=== PATIENT | female | born 1960 | race Caucasian/White ===

== ENCOUNTER 2017-09-21 12:26 | Emergency (ER) | payer OTHER ==
[~2017-09-21] VITALS: Ht 167.6 cm; Wt 61.2 kg
--- OUTSIDE RECORDS SUMMARY | ~2017-09-21 | XMS | Clinical Summary ---
Demographics + + + | Address | [address] | | | [place] [address] | + + + | Home Phone | | + + + | Preferred Language | Unknown | + + + | Marital Status | Single | + + + | Lutheran Affiliation | Unknown | + + + | Race | Unknown | + + + | Ethnic Group | Other Race | + + + Author + + + | Author | [facility] | + + + | Organization | [facility] | + + + | Address | Unknown | + + + | Phone | Unavailable | + + + Care Team Providers + +------+ + | Care Automobile Dealer Name | Role | Phone | + +------+ + PP | Unavailable | + +------+ + Source Comments CHANDLER is fully live on both [facility] and [facility] Allergies Not on File Current Medications Not [...] | | | | (FLU SHOT) | 7 | | | + + + + + Results Not on filefrom Last 3 Months"
[2017-09-21] MEDS ORDERED: PERCOCET 5-3251 EACH PO (13:32)
== END 2017-09-21 13:54 | disposition home or self-care (01) ==
LOC: ED 12:26
DX: S22.42XA Multiple fractures of ribs, left side, initial encounter for closed fracture (principal); W20.8XXA Other cause of strike by thrown, projected or falling object, initial encounter
CPT/HCPCS: 71101; 99283

== ENCOUNTER 2018-02-09 11:13 | Emergency (ER) | payer OTHER ==
[~2018-02-09] VITALS: Ht 167.6 cm; Wt 61.2 kg
--- OUTSIDE RECORDS SUMMARY | ~2018-02-09 | XMS | Encounter Summary ---
Demographics + + + | Address | [address] | | | [place] [address] | + + + | Home Phone | | + + + | Preferred Language | Unknown | + + + | Marital Status | | + + + | Sikhism Affiliation | 1041 | + + + | Race | Unknown | + + + | Ethnic Group | Unknown | + + + Author + + + | Author | [facility] | | | and [place] | + + + | Organization | [facility] | | | and [place] | + + + | Address | Unknown | + + + | Phone | Unavailable | + + + Support + + +---------+ + | Name | Relationship | Address | Phone | + + +---------+ + | Darrion Gale | ECON | Unknown | | + + +---------+ + Care Team Providers + +------+ + | Care Biomedical Specialist Name | Role | Phone | + +------+ + | Greg Chandler MD | PCP | | + +------+ + Encounter Details +--------+ + + + + | Date | Type | Department | Care Team | Description | +--------+ + + + + | 11/21/ | Hospital | [facility] | Ayad Coleman, | Right knee pain, | | 2018 | Encounter | HOSPITAL | [address], | unspecified | | | | ORTHOPAEDICS XRAY | [place] | chronicity | | | | [address] | [address] | | | | | [place] | [phone] | | | | | [address] | | | | | | [phone] | | | +--------+ + + + + Social History + +-------+ +--------+------+ | Tobacco Use | Types | Packs/Day | Years | Date | | | | | Used | | + +-------+ +--------+------+ | Never Smoker | | | | | + +-------+ +--------+------+ + +---+---+---+ | Smokeless Tobacco: | | | | | Never Used | | | | + +---+---+---+ + + + | Sex Assigned at | Date Recorded | | | | + + + | Not on file | | + + + as of this encounter Medications at Time of Discharge + + +-------+---------+ + + | Medication | Sig. | Disp. | Refills | Start | End Date | | | | | | Date | | + + +-------+---------+ + + | adult multivitamin | Take by mouth. | | | 10/28/19 | | | liquid | | | | 13 | | + + +-------+---------+ + + | Calcium | Take by mouth. | | | 10/28/19 | | | Carb-Cholecalciferol | | | | 13 | | | (CALCIUM 1000 + D | | | | | | | PO) | | | | | | + + +-------+---------+ + + | cholecalciferol | Take by mouth. | | | 10/28/19 | | | (VITAMIN D-3) 1,000 | | | | 13 | | | units tablet | | | | | | + + +-------+---------+ + + | ibuprofen (ADVIL) | Take 200 mg by mouth | | | 01/13/20 | | | 200 mg tablet | as needed. | | | 16 | | + + +-------+---------+ + + | Misc Natural | Take by mouth. | | | 10/28/19 | | | Products ([facility] | | | | 13 | | | OPCBKQ-NKZUHUQOM-JIN | | | | | | | DS PO) | | | | | | + + +-------+---------+ + + as of this encounter Plan of Treatment +--------+ + + + + | Date | Type | Specialty | Care Team | Description | +--------+ + + + + | 03/04/ | Office | Orthopedic Surgery | Yoan Morgan | | | 2017 | Visit | | BINTA Espino [address] | | | | | | [place], | | | | | | [place] [address] | | | | | | [phone] | | | | | | | | +--------+ + + + + | 03/26/ | Surgery | | Collin Guillen, | ARTHROSCOPY KNEE | | 2017 | | | DO [address], | with Partial Lateral | | | | | [place], [place] | Meniscectomy | | | | | [address] | | | | | | [phone] | | | | | | | | +--------+ + + + + | 03/26/ | Procedure | | | | | 2017 | Pass | | | | +--------+ + + + + | 03/26/ | Hospital | | Collin Guillen, | | | 2017 | Encounter | | DO [address], | | | | | | [place] | | | | | | [address] | | | | | | [phone] | | | | | | | | +--------+ + + + + as of this encounter Results XR Knee Left 4 + Vw (11/21/2017 1444) + + | Impressions | + + | IMPRESSION: 1. No acute finding. 2. 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 Dictated by: Darrion Sapp Electronically Signed by: Darrion Sapp on | | 11/21/2017 3:44 PM | + + + + | Narrative | + + | EXAMINATION: XR KNEE RIGHT 4 + VW; XR KNEE LEFT 4 + VW HISTORY: knee pain | | COMPARISON STUDY: MRI left knee 10/21/2015 FINDINGS: Right knee: Lateral knee | | joint narrowing is present with associated hypertrophic bone formation and | | sclerosis. Mild medial knee narrowing. Left knee: Lateral knee joint narrowing with | | mild hypertrophic bone formation. Mild hypertrophic bone formation narrowing at the | | medial knee. No acute bone finding identified. . | + + + + | Procedure Note | + + | Leander, Rad Results In - 11/21/2017 1548 PST EXAMINATION:XR KNEE RIGHT 4 + VW; XR KNEE | | LEFT 4 + VWHISTORY:knee painCOMPARISON STUDY:MRI left knee 10/21/2015FINDINGS:Right | | knee: Lateral knee joint narrowing is present with associated hypertrophic bone | | formation and sclerosis. Mild medial knee narrowing.Left knee: Lateral knee joint | | narrowing with mild hypertrophic bone formation. Mild hypertrophic bone formation | | narrowing at the medial knee.No acute bone finding identified. .IMPRESSION: | | IMPRESSION:1. No acute finding.2. Osteoarthritis lateral greater than medial knee | | bilateral.Dictated by: Darrion SappElectronically Signed by: Darrion Sapp on | | 11/21/2017 3:44 PM | |FINDINGS: | |Right knee: Lateral knee joint narrowing is present with associated hypertrophic bone forma tion and sclerosis. Mild medial knee narrowing. | |Left knee: Lateral knee joint narrowing with mild hypertrophic bone formation. Mild hypert rophic bone formation narrowing at the medial knee. | | | |No acute bone finding identified. . | | | |IMPRESSION: | |IMPRESSION: | |1. No acute finding. | |2. 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 | | | |Dictated by: Darrion Sapp | | | | | + + XR Knee Right 4 + Vw (11/21/2017 1444) + + | Impressions | + + | IMPRESSION: 1. No acute finding. 2. 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 Dictated by: Darrion Sapp Electronically Signed by: Darrion Sapp on | | 11/21/2017 3:44 PM | + + + + | Narrative | + + | EXAMINATION: XR KNEE RIGHT 4 + VW; XR KNEE LEFT 4 + VW HISTORY: knee pain | | COMPARISON STUDY: MRI left knee 10/21/2015 FINDINGS: Right knee: Lateral knee | | joint narrowing is present with associated hypertrophic bone formation and | | sclerosis. Mild medial knee narrowing. Left knee: Lateral knee joint narrowing with | | mild hypertrophic bone formation. Mild hypertrophic bone formation narrowing at the | | medial knee. No acute bone finding identified. . | + + + + | Procedure Note | + + | Leander, Rad Results In - 11/21/2017 1548 PST EXAMINATION:XR KNEE RIGHT 4 + VW; XR KNEE | | LEFT 4 + VWHISTORY:knee painCOMPARISON STUDY:MRI left knee 10/21/2015FINDINGS:Right | | knee: Lateral knee joint narrowing is present with associated hypertrophic bone | | formation and sclerosis. Mild medial knee narrowing.Left knee: Lateral knee joint | | narrowing with mild hypertrophic bone formation. Mild hypertrophic bone formation | | narrowing at the medial knee.No acute bone finding identified. .IMPRESSION: | | IMPRESSION:1. No acute finding.2. Osteoarthritis lateral greater than medial knee | | bilateral.Dictated by: Darrion SappElectronically Signed by: Darrion Sapp on | | 11/21/2017 3:44 PM | |FINDINGS: | |Right knee: Lateral knee joint narrowing is present with associated hypertrophic bone forma tion and sclerosis. Mild medial knee narrowing. | |Left knee: Lateral knee joint narrowing with mild hypertrophic bone formation. Mild hypert rophic bone formation narrowing at the medial knee. | | | |No acute bone finding identified. . | | | |IMPRESSION: | |IMPRESSION: | |1. No acute finding. | |2. 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 | | | |Dictated by: Darrion Sapp | | | | | + + in this encounter Visit Diagnoses + + | Diagnosis | + + | Right knee pain, unspecified chronicity | + +"
--- OUTSIDE RECORDS SUMMARY | ~2018-02-09 | XMS | Encounter Summary ---
Demographics + + + | Address | [address] | | | [place] [address] | + + + | Home Phone | | + + + | Preferred Language | Unknown | + + + | Marital Status | | + + + | Taoist Affiliation | 1041 | + + + | Race | Unknown | + + + | Ethnic Group | Unknown | + + + Author + + + | Author | [facility] | | | and [place] | + + + | Organization | [facility] | | | and [place] | [...] Team Providers + +------+ + | Care Identity Management Developer Name | Role | Phone | + +------+ + PCP | Unavailable | + +------+ + Encounter Details +--------+ + + + + | Date | Type | Department | Care Team | Description | +--------+ + + + + | 03/26/ | Procedure | [facility] | | | | 2018 | Pass | HOSPITAL [facility] | | | | | | [address] | | | | | | [place] | | | | | | [address] | | | | | | [phone] | | | +--------+ + + + [...] | | | + +---+---+---+ + + +---------+ + | Alcohol Use | Drinks/We | oz/Week | Comments | | | ek | | | + + +---------+ + | No | | | | + + +---------+ + + + + | Sex Assigned at | Date Recorded | | | | + + + | Not on file | | + + + as of this encounter Plan of Treatment +--------+ + + + + | Date | Type | Specialty | Care Team | Description | +--------+ + + + + | 03/04/ | Office | Orthopedic Surgery | Yoan Morgan | | | 2017 | Visit | | [address] | | | | | | [place], | | | | | | [place] [address] | | | | | | [phone] | | | | | | | | +--------+ + + + + | 03/26/ | Surgery | | Collin Guillen, | ARTHROSCOPY KNEE | | 2017 | | | DO [address], | with Partial Lateral | | | | | [place], [place] | Meniscectomy | | | | | [address] | | | | | | [phone] | | | | | | | [...] [place] | | | | | | [address] | | | | | | [phone] | | | | | | | | +--------+ + + + + as of this encounter Visit Diagnoses Not on filein this encounter"
--- OUTSIDE RECORDS SUMMARY | ~2018-02-09 | XMS | Encounter Summary ---
Demographics + + + | Address | [address] | | | [place] [address] | + + + | Home Phone | | + + + | Preferred Language | Unknown | + + + | Marital Status | | + + + | Samaritan Affiliation | 1041 | + + + | Race | Unknown | + + + | Ethnic Group | Unknown | + + + Author + + + | Author | [facility] | | | and [place] | + + + | Organization | [facility] | | | and [place] | [...] Team Providers + +------+ + | Care Oven Press Tender Name | Role | Phone | + +------+ + | Greg Chandler MD | PCP | | + +------+ + Reason for Visit + + + | Reason | Comments | + + + | Appointment | | + + + Encounter Details +--------+ + + + + | Date | Type | Department | Care Team | Description | +--------+ + + + + | 03/16/ | Telephone | [facility] | Anatoly Bravo, SCAR | Appointment | | 2018 | | HOSPITAL [facility] | [address] [place] | | | | | [address] [place] | [place], [place] | | | | | [place], [place] | [address] | | | | | [address] | [phone] | | | | | [phone] | | | +--------+ + + + [...] | Visit | | BINTA Espino [address] | | | | | | [place], | | | | | | [place] [address] | | | | | | [phone] | | | | | | | | +--------+ + + + + | 03/26/ | Surgery | | Collin Guillen, | ARTHROSCOPY KNEE | | 2017 | | | DO [address], | with Partial Lateral | | | | | [place], [place] | Meniscectomy | | | | | [address] | | | | | | [phone] | | | | | | | | +--------+ + + + + | 03/26/ | Procedure | | | | | 2017 | Pass | | | | +--------+ + + + + | 03/26/ | Hospital | | Collin Guillen, | | | 2017 | Encounter | | DO [address], | | | | | | [place], [place] | | | | | | [address] | | | | | | [phone] | | | | | | | | +--------+ + + + + as of this encounter Visit Diagnoses Not on filein this encounter"
--- OUTSIDE RECORDS SUMMARY | ~2018-02-09 | XMS | Encounter Summary ---
Demographics + + + | Address | [address] | | | [place] [address] | + + + | Home Phone | | + + + | Preferred Language | Unknown | + + + | Marital Status | | + + + | Mormonism Affiliation | 1041 | + + + | Race | Unknown | + + + | Ethnic Group | Unknown | + + + Author + + + | Author | [facility] | | | and [place] | + + + | Organization | [facility] | | | and [place]ana [...] Team Providers + +------+ + | Care City Manager Name | Role | Phone | [...] [place] | | | | | | [address] | | | | | | [phone] | | | +--------+ + + + [...] | | | | | | [place] [address] | | | | | | [phone] | | | | | | | | +--------+ + + + + | 03/26/ | Surgery | | Collin Guillen, | ARTHROSCOPY KNEE | | 2017 | | | DO [address], | with Partial Lateral | | | | | [place], [place] | Meniscectomy | | | | | [address] | | | | | | [phone] | | | | | | | [...] [place] | | | | | | [address] | | | | | | [phone] | | | | | | | | +--------+ + + + + as of this encounter Visit Diagnoses Not on filein this encounter"
--- OUTSIDE RECORDS SUMMARY | ~2018-02-09 | XMS | Encounter Summary ---
Demographics + + + | Address | [address] | | | [place] [address] | + + + | Home Phone | | + + + | Preferred Language | Unknown | + + + | Marital Status | | + + + | Restorationism Affiliation | 1041 | + + + | Race | Unknown | + + + | Ethnic Group | Unknown | + + + Author + + + | Author | [facility] | | | and [place]ana | + + + | Organization | [facility] | | | and [place]ana | [...] Team Providers + +------+ + | Care Brim Pouncing Machine Operator Name | Role | Phone | + +------+ + | Greg Chandler MD | PCP | | + +------+ + Reason for Visit + + + | Reason | Comments | + + + | Follow-up | R knee MRI | + + + Encounter Details +--------+---------+ + + + | Date | Type | Department | Care Team | Description | +--------+---------+ + + + | 12/31/ | Office | [facility] | [facility] | Degenerative tear of | | 2018 | Visit | [facility] | UMANG Espino [address] | posterior horn of | | | | [address] | [place], | lateral meniscus of | | | | [place], [place] | [place] [address] | right knee (Primary | | | | [address] | [phone] | Dx); Primary | | | | [phone] | | osteoarthritis of | | | | | | right knee | +--------+---------+ + + + Social History [...] + + + as of this encounter Last Filed Vital Signs + + + + | Vital Sign | Reading | Time Taken | + + + + | Blood Pressure | 122/68 | 12/31/2017 1600 PDT | + + + + | Pulse | 67 | 12/31/20171599 PDT | + + + + | Temperature | - | - | + + + + | Respiratory Rate | 16 | 12/31/20171599 PDT | + + + + | Oxygen Saturation | 99% | 12/31/20171599 PDT | + + + + | Inhaled Oxygen | - | - | | Concentration | | | + + + + | Weight | 61.2 kg (135 lb) | 12/31/20171599 PDT | + + + + | Height | 167.6 cm (5' 6") | 12/31/2017 1600 PDT | + + + + | Body Mass Index | 21.79 | 12/31/2017 1600 PDT | + + + + in this encounter Instructions Patient Instructions - Yoan Morgan PA - 12/31/2017 1643 PDTFormatting of this note may be different from the original. Understanding Meniscal Tears The meniscus is a tough cushion of fibrous tissue called cartilage in the knee joint. It cu shions the knee. It absorbs shock and helps spread weight across the knee joint. It also wor ks with other parts of the knee to help keep the joint stable. Injury or aging can cause the meniscus to tear and lead to pain and problems using the knee. What causes meniscal tears? A sudden injury can tear the meniscus. This is often because of planting the foot and twist ing the knee. Sports such as soccer, football, and basketball are often involved. Repeated a ctions, such as squatting, may also lead to a tear. Breakdown of the meniscus because of jennifer ng can also lead to tears. Symptoms of meniscal tears These can include: Knee pain Knee swelling Catching of the knee or inability to straighten the knee Unstable feeling in the knee Treatment for meniscal tears A tear is unlikely to heal on its own. You often will need surgery to repair a tear. In man y cases, your healthcare provider will first try treatments to help relieve symptoms. These may include: Rest the knee. This means avoiding any activity that puts stress on the knee joint. Thes e include kneeling, squatting, jogging, and climbing stairs. In some cases, you may need to use crutches for a time to keep body weight off of the knee joint. Cold pack. Putting a cold pack on the knee helps reduce pain and swelling. Knee brace. Bracing the knee helps support it. Medicine. Prescription and uuvf-egy-zcieyqf pain medicines can help relieve swelling and pain. Exercises. Exercises help strengthen the muscles of the leg to help support the knee adelaide nt. If these treatments don t help relieve symptoms or the injury is severe, you may need brittny hernando. This can repair the meniscus to relieve symptoms and restore movement. When to call your healthcare provider Call your healthcare provider right away if you have any of these: Fever of 100.4F (38C) or higher, or as directed Pain or swelling that gets worse, including pain in the calf Numbness or tingling in leg or foot You suddenly can t put any weight on your leg Your knee locks Date Last Reviewed: 12/22/201519997856-3832 [employer]. [address] [place] [address]. All righ ts reserved. This information is not intended as a substitute for professional medical care. Always follow your healthcare professional's instructions. Treating Meniscus Problems The type of surgery you have depends on the nature of your tear. its size and location. You r surgeon may use arthroscopy, a method that involves putting a tiny camera inside your knee , so that your doctor can clearly see your joint. Arthroscopy requires only small incisions (cuts), and you can usually go home the same day as surgery. During surgery, you may have lo fritz anesthesia (your doctor numbs your knee with medicine), a regional block (numbing your b navi from the waist down), or general anesthesia (your doctor gives you drugs to putyou int o a deep sleep so you do't feel pain.) Pre-op checklist Don't eat or drink 10 hours before surgery. Arrange for someone to drive you home after surgery. Tell your doctor if you take any medicine, supplements, or herbal remedies. Repair For certain tears, your surgeon will try to repair the meniscus. He or she will sew torn ed ges so they can heal properly. Or your surgeon will use special fasteners to repair damage. In some cases, repairs may require another incision at the back or side of your knee. Removal In most cases, your surgeon will remove the damaged part of your meniscus. The meniscus won 't completely grow back, so your doctor willremove as little tissue as possible. Other tis dee dee, calledthe articular cartilage, will take over the role as shock absorber for your kne e joint. After surgery You'll spend some time in the recovery area and can go home when you've recovered from the anesthesia. Your knee will be bandaged, and you may have stitches, steri-strips, or sherin. You may need crutches to keep weight off the knee and may have a splint for support. Date Last Reviewed: 06/17/201519994440-6083 [employer]. [address] [place] [address], [place] [address]. All [facility] ts reserved. This information is not intended as a substitute for professional medical care. Always follow your healthcare professional's instructions. in this encounter Progress Notes Yoan Morgan PA - 12/31/2017 1530 PDTFormatting of this note may be different from the original. Date of Service: 12/31/2017 Provider: Yoan Morgan Pt. Name/Age/: Alecia Gale 57 y.o. 1960 Date of Evalutaion: 12/31/2017 Chief Complaint Patient presents with Follow-up R knee MRI Orthopedic Clinic Visit Chief complaint: right knee locking and popping MRI follow up. HISTORY OF PRESENT ILLNESS Alecia Gale is a 57 y.o. female presents for right knee locking and popping MRI follow up. Alecia reports symptoms began about 5+ months ago. She does not recall a specific inciting ev ent. She reports pain and locking in the lateral knee, occurring most frequently while the k nee is flexed, especially when horseback. She will have to manipulate the knee with her hand and rotate the tibia to get the knee moving again. The locking has become more frequent and now occurs multiple times throughout each day. She denies instability or swelling. She's h ad similar symptoms in the contralateral knee that was treated successfully with partial men iscectomy. She saw Dr. Coleman in our clinic in October 2017, and he ordered MRI for further e valuation. She presents today for results and treatment plan. Today she reports pain in the right knee is 0/10 at baseline, but will increase to 4-5/10 w hen locking and trying to get moving again. PAST MEDICAL HISTORY History reviewed. No pertinent past medical history. PAST SURGICAL HISTORY Past Surgical History: Procedure Laterality Date HAND SURGERY Right KNEE ARTHROSCOPY Left 2016 KNEE ARTHROSCOPY Left 2013 bone spurs skin grafts Left MEDICATIONS Current Outpatient Prescriptions Medication Sig Dispense Refill adult multivitamin liquid Take by mouth. Calcium Carb-Cholecalciferol (CALCIUM 1000 + D PO) Take by mouth. cholecalciferol (VITAMIN D-3) 1,000 units tablet Take by mouth. ibuprofen (ADVIL) 200 mg tablet Take 200 mg by mouth as needed. Misc Natural Products ([employer] MAOXJY-GDYFIDIIA-QOF DS PO) Take by mouth. No current facility-administered medications for this visit. ALLERGIES No Known Allergies SOCIAL HISTORY Social History Social History Marital status: Spouse name: N/A Number of children: N/A Years of education: N/A Occupational History Not on file. Social History Main Topics Smoking status: Never Smoker Smokeless tobacco: Never Used Alcohol use No Drug use: No Sexual activity: Not on file Other Topics Concern Not on file Social History Narrative No narrative on file FAMILY HISTORY Family History Problem Relation Age of Onset Macular degen Mother Stroke Father Ulcerative colitis Brother Review of systems: Patient denies any nausea vomiting fevers chills chest pain shortness o f breath difficulty breathing constipation diarrhea blood in the stool blood in the urine. Physical exam: BP 122/68 | Pulse 67 | Resp 16 | Ht 1.676 m (5' 6") | Wt 61.2 kg (135 lb) | SpO2 99% | ? No | BMI 21.79 kg/m BMI: Body mass index is 21.79 kg/m. General: Patient is of normal development. Groomed and in a good nutritional state. Aler t and oriented x3. HEENT: Head is normocephalic atraumatic no scleral icterus or cervical adenopathy is appre ciated on exam Respiratory: Chest rise is symmetric. No conversational dyspnea or audible wheezing is ramesh reciated on exam. Respiratory rate is normal. Musculoskeletal: Right knee: No effusion. Mild TTP about the anterolateral joint line. Crep itus on motion noted. Range of motion 0 to 130 degrees. No medial/lateral laxity appreciated . ACL and PCL appreciated as stable. Positive Bk for pain. Distal motor and sensory fu nction intact B/L. B/L pedal pulses 1+. Imaging: MRI of the right knee from 12/19/17 was reviewed by me and discussed with Dr. Guillen. Findings consistent with complex tear of posterior horn of lateral meniscus. Findings of lateral com partment arthritis. All pertinent imaging results were discussed with patient on today's vis it. Laboratory: No results found for this or any previous visit. Assessment 1. Right knee lateral meniscus tear. 2. Right knee early osteoarthritis of lateral compartment Plan: Dr. Guillen and I discussed in detail with Alecia the findings on MRI and treatment options. We discussed that surgical treatment with a right knee arthroscopic surgery with partial later al menisectomy can address the mechanical symptoms she is having, and may improve some of th e pain she is having. However, she may continue to have OA related pain. We also discussed t hat although her OA causes little pain at this time, the progression of signs and symptoms i s unpredictable and could progress rapidly, or not progress for many years. She voiced under standing of this. We discussed the risks, benefits, and alternatives to surgical treatment with a diagnostic and operative arthroscopy with partial lateral menisectomy. We also discussed the typical pe rioperative course. Alecia was provided time to ask questions and have them answered to her sa tisfaction. She wishes to proceed with surgical treatment. Risks benefits and alternatives of surgical intervention were discussed with the patient. R isks included but not limited to heart attack stroke loss of life or limb nerve injury vesse l injury infection stiffness or return to the operating room for subsequent surgical interve ntion was discussed. Postoperative rehabilitation was discussed as well with the patient. Umang colon demonstrates understanding of the risks and wishes to proceed with surgical interventi on. During this visit I was under direct supervision of Dr. Collin Guillen and he had a face-to -face encounter with this patient. More than 30 minutes were spent face to face with the patient during this visit. More than 50% of the visit was spent providing education and/or counseling to the patient and their fa tiesha (if present) regarding the issues documented in this note. Electronically signed by: Yoan Morgan PA-C 12/31/2017 19:09 CC: Greg Chandler MD No ref. provider found Note: Part of this report was transcribed using voice recognition software. Every effort wa s made to ensure accuracy. However, inadvertent computerized plodding machine operator errors may be pre sent. Associated attestation - Collin Guillen, DO - 01/01/20181956 PDTIn my face to face enco unter with this patient a history and physical examination was performed and direction danielle lopez management was provided for Charles JUDD. I reviewed his note and agree with the do cumented findings and plan of care. in this encounter Plan of Treatment +--------+ + + + + | Date | Type | Specialty | Care Team | Description | +--------+ + + + + | 03/04/ | Office | Orthopedic Surgery | Yoan Morgan | | | 2017 | Visit | | UM[place] Espino [address] | | | | | | [place], | | | | | | [place] [address] | | | | | | [phone] | | | | | | | | +--------+ + + + + | 03/26/ | Surgery | | Collin Guillen, | ARTHROSCOPY KNEE | | 2017 | | | [address], | with Partial Lateral | | | | | [place], [place] | Meniscectomy | | | | | [address] | | | | | | [phone] | | | | | | | | +--------+ + + + + | 03/26/ | Procedure | | | | | 2017 | Pass | | | | +--------+ + + + + | 03/26/ | Hospital | | Collin Guillen, | | | 2018 | Encounter | | DO [address], | | | | | | [place] | | | | | | [address] | | | | | | [phone] | | | | | | | | +--------+ + + + + as of this encounter Visit Diagnoses + + | Diagnosis | + + | Degenerative tear of posterior horn of lateral meniscus of right knee - Primary | + + | Primary osteoarthritis of right knee | + + | Primary localized osteoarthrosis, lower leg | + +
--- OUTSIDE RECORDS SUMMARY | ~2018-02-09 | XMS | Encounter Summary ---
Demographics + + + | Address | [address] | | | [place] [address] | + + + | Home Phone | | + + + | Preferred Language | Unknown | + + + | Marital Status | | + + + | Mosque Affiliation | 1041 | + + + | Race | Unknown | + + + | Ethnic Group | Unknown | + + + Author + + + | Author | [facility] | | | and [place] | + + + | Organization | [facility] | | | and [place]ana [...] Team Providers + +------+ + | Care Form Tamper Operator Name | Role | Phone | + +------+ + | Greg Chandler MD | PCP | | + +------+ + Encounter Details +--------+ + + + + | Date | Type | Department | Care Team | Description | +--------+ + + + + | 12/25/ | Abstract | [facility] | Jose Daniel Matthews, | Bucket-handle tear | | 2018 | | [facility] | [address] | of lateral meniscus | | | | [address] | [place] | of left knee as | | | | [place] | [address] | current injury, | | | | [address] | | subsequent encounter | | | | [phone] | | | +--------+ + + + [...] + + + as of this encounter Progress Notes Jose Daniel Matthews MD - 12/25/2017 1503 PDTThis patient was seen by Dr. Coleman with advanced right knee OA and mechanical symptoms that led to ordering an MRI. The MRI was done 12/19/17 in [place] ([facility]) and the report was faxed to Dr. Coleman who is no longer in practice at [facility]. MRI suggests lateral compartment degeneration with the possibility of a displaced lateral m eniscus tear. I will forward this to Dr. Guillen to review, for potential indication for arthroscopic later al meniscal debridement if clinically relevant. Per Dr. Coleman' note last month, the patient was having overt locking episodes that may be related to this MRI finding. Will not proactively contact patient until reviewed by Dr. Guillen for potential surgical ind ications. Jose Daniel Matthews 12/25/2017 in this encounter Plan of Treatment +--------+ [...] | | | | | | [place] [address] | | | | | | [phone] | | | | | | | | +--------+ + + + + | 03/26/ | Surgery | | Collin Guillen, | ARTHROSCOPY KNEE | | 2018 | | | DO [address] , | with Partial Lateral | | | | | [place], [place] | Meniscectomy | | | | | [address] | | | | | | [phone] | | | | | | | | +--------+ + + + + | 03/26/ | Procedure | | | | | 2017 | Pass | | | | +--------+ + + + + | 03/26/ | Hospital | | Collin Guillen, | | | 2018 | Encounter | | DO [address], | | | | | | [place], [place] | | | | | | [address] | | | | | | [phone] | | | | | | | | +--------+ + + + + as of this encounter Visit Diagnoses + + | Diagnosis | + + | Bucket-handle tear of lateral meniscus of left knee as current injury, subsequent | | encounter | + +"
--- OUTSIDE RECORDS SUMMARY | ~2018-02-09 | XMS | Clinical Summary ---
Demographics + + + | Address | [address] | | | [place] [address] | + + + | Home Phone | | + + + | Preferred Language | Unknown | + + + | Marital Status | Single | + + + | Cheondoism Affiliation | Unknown | + + + | Race | Unknown | + + + | Ethnic Group | Other Race | + + + Author + + + | Author | [facility] | + + + | Organization | [facility] | + + + | Address | Unknown | + + + | Phone | Unavailable | + + + Care Team Providers + +------+ + | Care Wood Grainer Name | Role | Phone | + +------+ + PP | Unavailable | + +------+ + Source Comments CHANDLER is fully live on both [facility] and [facility] Allergies Not on File Current Medications Not on file Active Problems Not [...] on file | | + + + Plan of Treatment + + + + + | Health Maintenance | Due Date | Last Done | Comments | + + + + + | INFLUENZA VACCINE | | | | | (FLU SHOT) | 8 | | | + + + + + Results Not on filefrom Last 3 Months"
--- OUTSIDE RECORDS SUMMARY | ~2018-02-09 | XMS | Encounter Summary ---
Demographics + + + | Address | [address] | | | [place] [address] | + + + | Home Phone | | + + + | Preferred Language | Unknown | + + + | Marital Status | | + + + | Yarsanism Affiliation | 1041 | + + + | Race | Unknown | + + + | Ethnic Group | Unknown | + + + Author + + + | Author | [facility] | | | and [place] | + + + | Organization | [facility] | | | and [place]ana [...] Team Providers + +------+ + | Care Metal Loader Name | Role | Phone | + [...] | | | | [place] | [address] | current injury, | | | | [address] | | subsequent encounter | | | | [phone] | | | +--------+ + + + [...] MRI. The MRI was done 12/19/17 in [place] ([facility]) and the report was faxed to Dr. Coleman who is no longer in practice at [facility]. MRI suggests lateral compartment degeneration with [...] | | | | | | [place] [address] | | | | | | [phone] | | | | | | | | +--------+ + + + + | 03/26/ | Surgery | | Collin Guillen, | ARTHROSCOPY KNEE | | 2018 | | | DO [address] , | with Partial Lateral | | | | | [place], [place] | Meniscectomy | | | | | [address] | | | | | | [phone] | | | | | | | [...] [place] | | | | | | [address] | | | | | | [phone] | | | | | | | | +--------+ + + + + as of this encounter Visit Diagnoses + + | Diagnosis | + + | Bucket-handle tear of lateral meniscus of left knee as current injury, subsequent | | encounter | + +"
--- OUTSIDE RECORDS SUMMARY | ~2018-02-09 | XMS | Encounter Summary ---
Demographics + + + | Address | [address] | | | [place] [address] | + + + | Home Phone | | + + + | Preferred Language | Unknown | + + + | Marital Status | | + + + | Catholic Affiliation | 1041 | + + + | Race | Unknown | + + + | Ethnic Group | Unknown | + + + Author + + + | Author | [facility] | | | and [place] | + + + | Organization | [facility] | | | and [place] [...] Team Providers + +------+ + | Care Child Care Giver Name | Role | Phone | + +------+ + | Greg Chandler MD | PCP | | + +------+ + Reason for Visit +--------+ + | Reason | Comments | +--------+ + | Other | MRI Order | +--------+ + Encounter Details +--------+ + + + + | Date | Type | Department | Care Team | Description | +--------+ + + + + | 02/09/ | Telephone | [facility] | Ayad Coleman, | Other (MRI Order) | | 2018 | | [facility] | [address], | | | | | [address] | [place], [place] | | | | | [place], [place] | [address] | | | | | [address] | [phone] | | | | | [phone] | | | +--------+ + + + [...] | | | | | | [place] [address] | | | | | | [phone] | | | | | | | | +--------+ + + + + | 03/26/ | Surgery | | Collin Guillen, | ARTHROSCOPY KNEE | | 2018 | | | DO [address], | with Partial Lateral | | | | | [place], [place] | Meniscectomy | | | | | [address] | | | | | | [phone] | | | | | | | | +--------+ + + + + | 03/26/ | Procedure | | | | | 2017 | Pass | | | | +--------+ + + + + | 03/26/ | Hospital | | Collin Guillen, | | | 2017 | Encounter | | DO [address], | | | | | | [place], [place] | | | | | | [address] | | | | | | [phone] | | | | | | | | +--------+ + + + + as of this encounter Visit Diagnoses Not on filein this encounter"
--- OUTSIDE RECORDS SUMMARY | ~2018-02-09 | XMS | Encounter Summary ---
Demographics + + + | Address | [address] | | | [place] [address] | + + + | Home Phone | | + + + | Preferred Language | Unknown | + + + | Marital Status | | + + + | Congregation Affiliation | 1041 | + + + | Race | Unknown | + + + | Ethnic Group | Unknown | + + + Author + + + | Author | [facility] | | | and [place] | + + + | Organization | [facility] | | | and [place] [...] Team Providers + +------+ + | Care Drug Clerk Name | Role | Phone | + [...] | | | [place], [place] | [address] | | | | | [address] | [phone] | | | | | [phone] | | | +--------+ + + + [...] | | | | | | [place] [address] | | | | | | [phone] | | | | | | | | +--------+ + + + + | 03/26/ | Surgery | | Collin Guillen, | ARTHROSCOPY KNEE | | 2017 | | | DO [address], | with Partial Lateral | | | | | [place], [place] | Meniscectomy | | | | | [address] | | | | | | [phone] | | | | | | | [...] [place] | | | | | | [address] | | | | | | [phone] | | | | | | | | +--------+ + + + + as of this encounter Visit Diagnoses Not on filein this encounter"
--- OUTSIDE RECORDS SUMMARY | ~2018-02-09 | XMS | Encounter Summary ---
Demographics + + + | Address | [address] | | | [place] [address] | + + + | Home Phone | | + + + | Preferred Language | Unknown | + + + | Marital Status | | + + + | Zoroastrian Affiliation | 1041 | + + + | Race | Unknown | + + + | Ethnic Group | Unknown | + + + Author + + + | Author | [facility] | | | and Davidana | + + + | Organization | [facility] | | | and Davidana [...] Team Providers + +------+ + | Care Qa Automation Architect Name | Role | Phone | + +------+ + PCP | Unavailable | + +------+ + Encounter Details +--------+ + + + + | Date | Type | Department | Care Team | Description | +--------+ + + + + | 03/26/ | Hospital | [facility] | Collin Guillen, | | | 2018 | Encounter | HOSPITAL OR INTRA OP | DO [address] , | | | | | [address] | [place], [place] | | | | | [place], [place] | [address] | | | | | [address] | [phone] | | | | | [phone] | | | +--------+ + + + [...] Surgery | Yoan Morgan | | | 2018 | Visit | | BINTA Espino [address] | | | | | | [place], | | | | | | [place] [address] | | | | | | [phone] | | | | | | | | +--------+ + + + + | 03/26/ | Surgery | | Collin Guillen, | ARTHROSCOPY KNEE | | 2017 | | | DO [address], | with Partial Lateral | | | | | [place], [place] | Meniscectomy | | | | | [address] | | | | | | [phone] | | | | | | | | +--------+ + + + + | 03/26/ | Procedure | | | | | 2017 | Pass | | | | +--------+ + + + + | 03/26/ | Hospital | | Collin Guillen, | | | 2017 | Encounter | | DO [address], | | | | | | [place], [place] | | | | | | [address] | | | | | | [phone] | | | | | | | | +--------+ + + + + as of this encounter Visit Diagnoses Not on filein this encounter Admitting Diagnoses + + | Diagnosis | + + | Unknown | + +"
--- OUTSIDE RECORDS SUMMARY | ~2018-02-09 | XMS | Encounter Summary ---
Demographics + + + | Address | [address] | | | [place] [address] | + + + | Home Phone | | + + + | Preferred Language | Unknown | + + + | Marital Status | | + + + | Sabianism Affiliation | 1041 | + + + | Race | Unknown | + + + | Ethnic Group | Unknown | + + + Author + + + | Author | [facility] | | | and Davidana | + + + | Organization | [facility] | | | and Davidana [...] Team Providers + +------+ + | Care Sewer Maintenance Supervisor Name | Role | Phone | + +------+ + | Greg Chandler MD | PCP | | + +------+ + Encounter Details +--------+---------+ + + + | Date | Type | Department | Care Team | Description | +--------+---------+ + + + | 03/26/ | Surgery | [facility] | Collin Guillen, | ARTHROSCOPY KNEE | | 2017 | | HOSPITAL OR INTRA OP | DO [address] , | with Partial Lateral | | | | [address] | [place], [place] | Meniscectomy | | | | [place], [place] | [address] | | | | | [address] | [phone] | | | | | [phone] | | | +--------+---------+ + + + Social History [...] 2018 | Visit | | [address] | | | | | | [place], | | | | | | [place] [address] | | | | | | [phone] | | | | | | | | +--------+ + + + + | 03/26/ | Surgery | | Collin Guillen, | ARTHROSCOPY KNEE | | 2018 | | | DO [address], | with Partial Lateral | | | | | [place], [place] | Meniscectomy | | | | | [address] | | | | | | [phone] | | | | | | | | +--------+ + + + + | 03/26/ | Procedure | | | | | 2017 | Pass | | | | +--------+ + + + + | 03/26/ | Hospital | | Collin Guillen, | | | 2018 | Encounter | | DO [address], | | | | | | [place], [place] | | | | | | [address] | | | | | | [phone] | | | | | | | | +--------+ + + + + as of this encounter Visit Diagnoses Not on filein this encounter Admitting Diagnoses + + | Diagnosis | + + | Unknown | + +"
--- OUTSIDE RECORDS SUMMARY | ~2018-02-09 | XMS | Encounter Summary ---
Demographics + + + | Address | [address] | | | [place] [address] | + + + | Home Phone | | + + + | Preferred Language | Unknown | + + + | Marital Status | | + + + | Mosque Affiliation | 1041 | + + + | Race | Unknown | + + + | Ethnic Group | Unknown | + + + Author + + + | Author | [facility] | | | and Davidana | + + + | Organization | [facility] | | | and Davidana [...] Team Providers + +------+ + | Care Rotary Drill Operator Name | Role | Phone | [...] | | | [address] | [address] | | | | | [place] | [phone] | | | | | [address] | | | | | | [phone] | | | +--------+ + + + [...] | | | 13 | | | [id number] | | | | | | | [...] | | | | | | [place] [address] | | | | | | [phone] | | | | | | | | +--------+ + + + + | 03/26/ | Surgery | | Collin Guillen, | ARTHROSCOPY KNEE | | 2017 | | | DO [address], | with Partial Lateral | | | | | [place], [place] | Meniscectomy | | | | | [address] | | | | | | [phone] | | | | | | | [...] [place] | | | | | | [address] | | | | | | [phone] | | | | | | | [...]
--- OUTSIDE RECORDS SUMMARY | ~2018-02-09 | XMS | Encounter Summary ---
Demographics + + + | Address | [address] | | | [place] [address] | + + + | Home Phone | | + + + | Preferred Language | Unknown | + + + | Marital Status | | + + + | Yazidi Affiliation | 1041 | + + + | Race | Unknown | + + + | Ethnic Group | Unknown | + + + Author + + + | Author | [facility] | | | and Davidana | + + + | Organization | [facility] | | | and [...] Team Providers + +------+ + | Care Breaker Up Name | Role | Phone | + [...] | | | | [place], [place] | [address] | | | | | [address] | [phone] | | | | | [phone] | | | +--------+ + + + [...] | | | | | | [place] [address] | | | | | | [phone] | | | | | | | | +--------+ + + + + | 03/26/ | Surgery | | Collin Guillen, | ARTHROSCOPY KNEE | | 2017 | | | DO [address], | with Partial Lateral | | | | | [place], [place] | Meniscectomy | | | | | [address] | | | | | [phone] | | | | | | | [...] [place] | | | | | | [address] | | | | | | [phone] | | | | | | | | +--------+ + + + + as of this encounter Visit Diagnoses Not on filein this encounter Admitting Diagnoses + + | Diagnosis | + + | Unknown | + +"
--- OUTSIDE RECORDS SUMMARY | ~2018-02-09 | XMS | Clinical Summary ---
Demographics + + + | Address | [address] | | | [place] [address] | + + + | Home Phone | | + + + | Preferred Language | Unknown | + + + | Marital Status | | + + + | Oriental Orthodox Affiliation | 1041 | + + + | Race | Unknown | + + + | Ethnic Group | Unknown | + + + Author + + + | Author | [facility] | | | and Davidana | + + + | Organization | [facility] | | | and [place] | + + + | Address | Unknown | + + + | Phone | Unavailable | + + + Support + + +---------+ + | Name | Relationship | Address | Phone | + + +---------+ + | Darrion [place] | ECON | Unknown | | + + +---------+ + Care Team Providers + +------+ + | Care Block Sealer Name | Role | Phone | + +------+ + | Greg Chandler MD | PP | | + +------+ + Allergies No Known Allergies Current Medications + + +-------+---------+------+------+-------+ | Prescription | Sig. | Disp. | Refills | Star | End | Statu | | | | | | t | Date | s | | | | | | Date | | | + + +-------+---------+------+------+-------+ | ibuprofen (ADVIL) | Take 200 mg by mouth | | | 04/0 | | Activ | | 200 mg tablet | as needed. | | | 1/20 | | e | | | | | | 16 | | | + + +-------+---------+------+------+-------+ | adult multivitamin | Take by mouth. | | | 01/1 | | Activ | | liquid | | | | 5/20 | | e | | | | | | 13 | | | + + +-------+---------+------+------+-------+ | Misc Natural | Take by mouth. | | | 01/1 | | Activ | | Products ([facility] | | | | 5/20 | | e | | [id number] | | | | 13 | | | | DS PO) | | | | | | | + + +-------+---------+------+------+-------+ | Calcium | Take by mouth. | | | 01/1 | | Activ | | Carb-Cholecalciferol | | | | 5/20 | | e | | (CALCIUM 1000 + D | | | | 13 | | | | PO) | | | | | | | + + +-------+---------+------+------+-------+ | cholecalciferol | Take by mouth. | | | 10/14 | | Activ | | (VITAMIN D-3) 1,000 | | | | 03/02 | | e | | units tablet | | | | 13 | | | + + +-------+---------+------+------+-------+ Active Problems + + + | Problem | Noted Date | + + + | Primary osteoarthritis of right knee | 12/31/2017 | + + + | Lateral meniscus tear, current | 12/25/2017 | + + + Encounters +--------+ + + + + | Date | Type | Specialty | Care Team | Description | +--------+ + + + + | 12/31/ | Office | | Yoan Morgan | Degenerative tear of | | 2017 | Visit | | Srinivas PA | posterior horn of | | | | | | lateral meniscus of | | | | | | right knee (Primary | | | | | | Dx); Primary | | | | | | osteoarthritis of | | | | | | right knee | +--------+ + + + + | 12/27/ | Telephone | | Anatoly Bravo FNP | Appointment | | 2017 | | | | | +--------+ + + + + | 12/25/ | Abstract | | Jose Daniel Matthews, | Bucket-handle tear | | 2017 | | | MD | of lateral meniscus | | | | | | of left knee as | | | | | | current injury, | | | | | | subsequent encounter | +--------+ + + + + | 11/22/ | Telephone | | Ayad Coleman, | Other (MRI Order) | | 2018 | | | MD | | +--------+ + + + + | 11/21/ | Hospital | | Ayad Coleman, | Right knee pain, | | 2017 | Encounter | | MD | unspecified | | | | | | chronicity | +--------+ + + + + | 11/21/ | Office | | Ayad Coleman, | Right knee pain, | | 2017 | Visit | | MD | unspecified | | | | | | chronicity (Primary | | | | | | Dx) | +--------+ + + + + | 11/21/ | Abstract | | Laura Beach, | | | 2017 | | | RN | | +--------+ + + + + from Last 3 Months Family History + + +------+ + | Medical History | Relation | Name | Comments | + + +------+ + | Ulcerative colitis | Brother | | | + + +------+ + | Stroke | Father | | | + + +------+ + | Macular degen | Mother | | | + + +------+ + + +------+ + + | Relation | Name | Status | Comments | + +------+ + + | Brother | | Alive | | + +------+ + + | Father | | | | + +------+ + + | Mother | | Alive | | + +------+ + + Social History + +-------+ +--------+------+ [...] on file | | + + + Last Filed Vital Signs + + + + | Vital Sign | Reading | Time Taken | + + + + | Blood Pressure | 122/68 | 12/31/2017 1600 PDT | + + + + | Pulse | 67 | 12/31/2017 1600 PDT | + + + + | Temperature | - | - | + + + + | Respiratory Rate | 16 | 12/31/2017 1600 PDT | + + + + | Oxygen Saturation | 99% | 12/31/2017 1600 PDT | + + + + | Inhaled Oxygen | - | - | | Concentration | | | + + + + | Weight | 61.2 kg (135 lb) | 12/31/20171599 PDT | + + + + | Height | 167.6 cm (5' 6") | 12/31/20171599 PDT | + + + + | Body Mass Index | 21.79 | 12/31/20171599 PDT | + + + + Plan of Treatment +--------+ + + + + | Date | Type | Specialty | Care Team | Description | +--------+ + + + + | 03/04/ | Office | | Yoan Morgan | | | 2017 | Visit | | BINTA Esp[address] | | | | | | [place], | | | | | | [place] [address] | | | | | | [phone] | | | | | | | | +--------+ + + + + | 03/26/ | Surgery | | Collin Guillen, | ARTHROSCOPY KNEE | | 2017 | | | DO [address], | with Partial Lateral | | | | | [place], [place] | Meniscectomy | | | | | [address] | | | | | | [phone] | | | | | | | [...] [place] | | | | | | [address] | | | | | | [phone] | | | | | | | | +--------+ + + + + + + + + + | Health Maintenance | Due Date | Last Done | Comments | + + + + + | Hepatitis C | | | | | Screening | 9 | | | + + + + + | Vaccine: | | | | | Dtap/Tdap/Td (1 - | 8 | | | | Tdap) | | | | + + + + + | CERVICAL CANCER | | | | | SCREENING (PAP EVERY | 0 | | | | 3 YEARS 21-64 ) | | | | + + + + + | BREAST CANCER | | | | | SCREENING (MAMM Q2 | 9 | | | | YEARS 50-74) | | | | + + + + + | COLON CANCER | | | | | SCREENING | 9 | | | | (COLONOSCOPY EVERY | | | | | 10 YEARS 50-75) | | | | + + + + + | Vaccine: Influenza | | | | | (Season Ended) | 8 | | | + + + + + Results XR Knee Right 4 + Vw (11/21/2017 [...] | | | + + XR Knee Left 4 + Vw (11/21/2017 [...] | | | | | + + from Last 3 Months Insurance +-------+--------+ +------+ + + | Payer | Benefi | Subscriber | Type | Phone | Address | | | t Plan | ID | | | | | | / | | | | | | | Group | | | | | +-------+--------+ +------+ + + | [employer] | MOD[employer] | xxxxxxxxx | PPO | [phone] [address] [address] | | | [place] | | | [phone] | [place] [address] | | | [place] | | | | | | | [place] | | | | | +-------+--------+ +------+ + + + +--------+ +--------+ + + | Guarantor Name | Accoun | Relation to | Date | Phone | Billing Address | | | t Type | Patient | of | | | | | | | | | | + +--------+ +--------+ + + | CAROL W[place] | Person | Self | [birth year] | Home: | [address] | | | al/Fam | | [phone] | [place] [address] | | | cristy | | | [phone] | | + +--------+ +--------+ + +
--- OUTSIDE RECORDS SUMMARY | ~2018-02-09 | XMS | Clinical Summary ---
Demographics + + + | Address | [address] | | | [place] [address] | + + + | Home Phone | | + + + | Preferred Language | Unknown | + + + | Marital Status | | + + + | Caodaism Affiliation | 1041 | + + + | Race | Unknown | + + + | Ethnic Group | Unknown | + + + Author + + + | Author | [facility] | | | and Davidana | + + + | Organization | [facility] | | | and Davidana [...] Team Providers + +------+ + | Care Ladle Builder Name | Role | Phone | + [...] | 5/20 | | e | | [id number] | | | | 13 | | [...] | | | | | | [place] [address] | | | | | | [phone] | | | | | | | | +--------+ + + + + | 03/26/ | Surgery | | Collin Guillen, | ARTHROSCOPY KNEE | | 2017 | | | DO [address], | with Partial Lateral | | | | | [place], [place] | Meniscectomy | | | | | [address] | | | | | | [phone] | | | | | | | [...] [place] | | | | | | [address] | | | | | | [phone] | | | | | | | [...] | [employer] | [phone] | PPO | [phone] [address] [address] | | | [place] | | | [phone] | [place] [address] | | | [place] | | | [...] | Self | [birth year] | Home: | [address] | | | al/Fam | | [phone] | [place] [address] | | | cristy | | | [phone] | | + +--------+ +--------+ + +
--- OUTSIDE RECORDS SUMMARY | ~2018-02-09 | XMS | Clinical Summary ---
Demographics + + + | Address | [address] | | | [place] [address] | + + + | Home Phone | | + + + | Preferred Language | Unknown | + + + | Marital Status | Single | + + + | Gnosticism Affiliation | Unknown | + + + | Race | Unknown | + + + | Ethnic Group | Other Race | + + + Author + + + | Author | [facility] | + + + | Organization | [facility] | + + + | Address | Unknown | + + + | Phone | Unavailable | + + + Care Team Providers + +------+ + | Care Primary Special Education Teacher Name | Role | Phone | + +------+ + PP | Unavailable | + +------+ + Source Comments [facility] is fully live on both [facility] and [facility] Allergies Not on File Current Medications Not [...]
--- OUTSIDE RECORDS SUMMARY | ~2018-02-09 | XMS | Encounter Summary ---
Demographics + + + | Address | [address] | | | [place] [address] | + + + | Home Phone [...] | [facility] | | | and Davidana | + + + | Organization | [facility] | | | and [...] Providers + +------+ + | Care Building Maintenance Superintendent Name | Role | Phone | + [...] | | [place], [place] | [place] [address] | right knee (Primary | | | | [address] | [phone] | Dx); Primary | | | | [phone] | | osteoarthritis of | | | [...] knee helps support it. Medicine. Prescription and [id number]-[id number] pain medicines can help relieve swelling and [...] leg Your knee locks Date Last Reviewed: 12/22/201519991212-0634 [employer]. [address] [place] [address]. All righ ts reserved. This information is [...] a splint for support. Date Last Reviewed: 06/17/201519992759-0760 [employer]. [address] [place] [address], [place] [address]. All [facility] ts reserved. This information is not [...] mouth as needed. Misc Natural Products ([facility] [id number] DS PO) Take by mouth. No current [...] made to ensure accuracy. However, inadvertent computerized flake drier errors may be pre sent. Associated attestation [...] | | | | | | [place] [address] | | | | | | [phone] | | | | | | | | +--------+ + + + + | 03/26/ | Surgery | | Collin Guillen, | ARTHROSCOPY KNEE | | 2017 | | | [address], | with Partial Lateral | | | | | [place], [place] | Meniscectomy | | | | | [address] | | | | | | [phone] | | | | | | | [...] [place] | | | | | | [address] | | | | | | [phone] | | | | | | | [...]
--- OUTSIDE RECORDS SUMMARY | ~2018-02-09 | XMS | Encounter Summary ---
Demographics + + + | Address | [address] | | | [place] [address] | + + + | Home Phone | | + + + | Preferred Language | Unknown | + + + | Marital Status | | + + + | Quaker Affiliation | 1041 | + + + | Race | Unknown | + + + | Ethnic Group | Unknown | + + + Author + + + | Author | [facility] | | | and [place] | + + + | Organization | [facility] | | | and [place] [...] Team Providers + +------+ + | Care Brush Filler Hand Name | Role | Phone | + +------+ + | Greg Chandler MD | PCP | | + +------+ + Reason for Referral Diagnostic/Screening (Routine) + +--------+ + + + + | Status | Reason | Specialty | Diagnoses / | Referred By | Referred To | | | | | Procedures | Contact | Contact | + +--------+ + + + + | Authorized | | Radiology | Diagnoses | Jared | Radha Wgr Xray | | | | | Right knee | Ayad Serrato MD | [address] | | | | | pain, | [address] | [address] | | | | | unspecified | [place] | [place] | | | | | chronicity | [place] | [address] | | | | | Procedures | [place] | Phone: | | | | | MRI Knee | [address] | [phone] | | | | | Right wo | Phone: | Fax: | | | | | Contrast | [phone] | [phone] | | | | | | Fax: | | | | | | | [phone] | | + +--------+ + + + + Reason for Visit + + + | Reason | Comments | + + + | Knee Pain | R knee pain/locking | + + + Encounter Details +--------+---------+ + + + | Date | Type | Department | Care Team | Description | +--------+---------+ + + + | 11/21/ | Office | [facility] | Jared Ayad Rojelio, | Right knee pain, | | 2018 | Visit | [facility] | MD [address], | unspecified | | | | [address] | [place], [place] | chronicity (Primary | | | | [place], [place] | [address] | Dx) | | | | [address] | [phone] | | | | | [phone] | | | +--------+---------+ + + + [...] + + + | Blood Pressure | 118/84 | 11/21/20171450 PST | + + + + | Pulse | 75 | 11/21/20171450 PST | + + + + | Temperature | - | - | + + + + | Respiratory Rate | 16 | 11/21/20171450 PST | + + + + | Oxygen Saturation | 95% | 11/21/20171450 PST | + + + + | Inhaled Oxygen | - | - | | Concentration | | | + + + + | Weight | 61.2 kg (135 lb) | 11/21/20171450 PST | + + + + | Height | 167.6 cm (5' 6") | 11/21/20171450 PST | + + + + | Body Mass Index | 21.79 | 11/21/20171450 PST | + + + + in this encounter Instructions Patient Instructions - Ayad Coleman MD - 11/21/2017 1521 PST Knee Pain with Possible Torn Meniscus Themeniscusis a tough cartilage pad that cushions the inside of the knee joint. It help s absorb the shock from movement. It also spreads the weight of your body evenly across the knee joint. This prevents excess wear and tear to the bones of that joint. The most common causes of meniscal tears are injuries, especially related to sports and deg enerative disease that happens with aging. A meniscus tear commonly happens during a twisting injury when the knee is bent. This cause s pain, swelling, reduced movement of the knee, and trouble walking. There may be popping, c licking, joint locking or inability to completely straighten the knee. Ligaments of the knee may also be injured. A torn meniscus is diagnosed by physical exam and X-rays. In the case of a severe injury, t he knee may be too painful to examine fully. A more accurate exam can be done after the init ial swelling goes down. An MRI may be ordered to make a final diagnosis. If your healthcare provider suspects a meniscal injury, you will treat your knee with ice a nd rest and preventing movement of the knee. A splint orknee brace that keeps your leg str aightmay be put on to protect the joint. Depending on the severity of the injury, surgery may be needed. A cartilage injury may take 4-12 weeks to heal depending on how bad it is. Home care Stay off the injured leg as much as possible until you can walk on it without pain. If y ou have a lot of pain when walking, crutches or a walker may be prescribed. (These can be re nted or bought at many pharmacies and surgical or orthopedic supply stores). Follow your [facility] provider's advice about when to begin putting weight on that leg. Keep your leg elevated to reduce pain and swelling. When sleeping, place a pillow under the injured leg. When sitting, support the injured leg so it is level with your waist. This is very important during the first 48 hours. Apply an ice pack over the injured area for 15 to 20 minutes every3 to 6hours. You s hould do this forthe first24 to 48 hours.You can make an ice pack by filling a plastic bag that seals at the top with ice cubes and then wrapping it with a thin towel. Continue t o use ice packs for relief of pain and swelling as needed. As the ice melts, be careful to a void getting your wrap, splint, or cast wet. After 48 hours, apply heat(warm shower orwa rm bath)for 15 to 20 minutes several times a day, or alternate ice and heat.You can plac e the ice pack directly over the splint. If you have to wear a bibo-guh-mczzcuea brace, yo u can open it to apply the ice pack, or heat, directly to the knee. Never put ice directly o n the skin. Always wrap the ice in a towel or other type of cloth. You may iwkqpxr-qdc-eldgith pain medicineto control pain, unless another pain medici ne was prescribed.If you have chronic liver or kidney disease or ever had a stomach ulcer, talk with your healthcare providerbeforeusing these medicines. If you were given a splint, keep it dry at all times. Bathe with your splint out of the water. Protect it with a large plastic bag that is rubber-banded at the top end. If a fiberg lass splint gets wet, you can dry it with a dog hair clipper. If you have szavz-wod-yqvkduxu b race, you can remove this to bathe, unless told otherwise. Check with your healthcare provider before returning to sports or full work duties. Follow-up care Follow up with your healthcare provider, or as advised. This is usually within 1-2 weeks. F urther testing may be required to check the extent of your injury. If X-rays were taken,you will betoldof any new findings that may affect your care. Call 911 Call 911 if you have: Shortness of breath Chest pain When to seek medical advice Call your healthcare provider right away if any of these occur: Toes or foot gets swollen, cold, blue, numb, or tingly Pain or swelling spreads over the knee or calf Warmth or redness appears over the knee or calf Fever of 100.4F (38C) or above lasting for 24 to 48 hours Date Last Reviewed: 09/05/201519990218-9764 [employer]. [address] [place] [address], [place] [address]. All righ ts reserved. This information is not intended as a substitute for professional medical care. Always follow your healthcare professional's instructions. in this encounter Progress Notes Ayad Coleman MD - 11/21/2017 [address] 1960 [id number] 11/21/2017 History of Present Illness This is a 57 y.o. female who presents for evaluation of right knee pain and locking. Her s ymptoms began about 8 months ago without a history of specific injury. The pain and locking sensations are in the lateral knee. The locking has become more frequent and now occurs mu ltiple times throughout each day. To "unlock" the knee she has to flex and extend while rot ating the knee. She denies instability or swelling. She's had similar symptoms in the cont ralateral knee that was treated successfully with partial meniscectomy. She's had no specif ic treatment up to this point. Physical Exam Blood pressure 118/84, pulse 75, resp. rate 16, height 1.676 m (5' 6"), weight 61.2 kg (135 lb), SpO2 95 %. General: NAD, AAOx3, Pleasant Musculoskeletal: Right knee: No skin lesions. Minimal effusion. No medial or lateral adelaide nt line tenderness. Range of motion is extension to 0 and flexion to 125. Negative McM urray's medially and laterally. No ligamentous laxity. Neurovascularly intact distally. 5 out of 5 strength with ankle dorsiflexion, plantarflexion, and great toe extension. Sensat ion intact to light touch in the L4-S1 dermatomes. 2+ dorsalis pedis pulse. Imaging Bilateral knee x-rays: Joint space narrowing of the lateral compartment, periarticular oste ophytes laterally, and subchondral sclerosis on the lateral tibial plateau in the right knee . Assessment Right knee pain with possible lateral meniscus tear Plan I recommended an MRI of the right knee due to the fact that she is experiencing mechanical symptoms. We discussed the fact that her symptoms could be due to underlying degenerative c hanges or a displaced meniscus tear. She'll have the MRI completed and return for follow-up to discuss results and treatment options.in this encounter Plan of Treatment +--------+ + + + + | Date | Type | Specialty | Care Team | Description | +--------+ + + + + | 03/04/ | Office | Orthopedic Surgery | Charles Morganael | | | 2017 | Visit | | BINTA Espino [address] | | | | | | [place], | | | | | | [place] [address] | | | | | | [phone] | | | | | | | | +--------+ + + + + | 03/26/ | Surgery | | Collin Guillen, | ARTHROSCOPY KNEE | | 2017 | | | [address] , | with Partial Lateral | | | | | [place], [place] | Meniscectomy | | | | | [address] | | | | | | [phone] | | | | | | | | +--------+ + + + + | 03/26/ | Procedure | | | | | 2018 | Pass | | | | +--------+ + + + + | 03/26/ | Hospital | | Collin Guillen, | | | 2018 | Encounter | | DO [address], | | | | | | [place] | | | | | | [address] | | | | | | [phone] | | | | | | | | +--------+ + + + + + +--------+ + + | Name | Priori | Associated Diagnoses | Order Schedule | | | ty | | | + +--------+ + + | MRI Knee Right wo Contrast | Routin | Right knee pain, | Expected: | | | e | unspecified | 11/21/2017, Expires: | | | | chronicity | 11/21/2018 | + +--------+ + + as of this encounter Results XR Knee Left 4 + Vw (11/21/2017 1444) + + | Impressions | + + | IMPRESSION: 1. No acute finding. 2. 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 Dictated by: Darrion Sapp Electronically Signed by: Dariron Sapp on | | 11/21/2017 3:44 PM [...] + | Right knee pain, unspecified chronicity - Primary | + +
--- OUTSIDE RECORDS SUMMARY | ~2018-02-09 | XMS | Encounter Summary ---
Demographics + + + | Address | [address] | | | [place] [address] | + + + | Home Phone | | + + + | Preferred Language | Unknown | + + + | Marital Status | | + + + | Gnosticist Affiliation | 1041 | + + + | Race | Unknown | + + + | Ethnic Group | Unknown | + + + Author + + + | Author | [facility] | | | and [place] | + + + | Organization | [facility] | | | and [...] Team Providers + +------+ + | Care Box Liner Name | Role | Phone | + [...] | | | | [place], [place] | [address] | | | | | [address] | [phone] | | | | | [phone] | | | +--------+---------+ + + + [...] | | | | | | [place] [address] | | | | | | [phone] | | | | | | | | +--------+ + + + + | 03/26/ | Surgery | | Collin Guillen, | ARTHROSCOPY KNEE | | 2018 | | | DO [address], | with Partial Lateral | | | | | [place], [place] | Meniscectomy | | | | | [address] | | | | | | [phone] | | | | | | | [...] [place] | | | | | | [address] | | | | | | [phone] | | | | | | | | +--------+ + + + + as of this encounter Visit Diagnoses Not on filein this encounter Admitting Diagnoses + + | Diagnosis | + + | Unknown | + +"
--- OUTSIDE RECORDS SUMMARY | ~2018-02-09 | XMS | Encounter Summary ---
Demographics + + + | Address | [address] | | | [place] [address] | + + + | Home Phone | | + + + | Preferred Language | Unknown | + + + | Marital Status | | + + + | Synagogue Affiliation | 1041 | + + + | Race | Unknown | + + + | Ethnic Group | Unknown | + + + Author + + + | Author | [facility] | | | and [place] | + + + | Organization | [facility] | | | [...] Team Providers + +------+ + | Care Plate Slitter And Inspector Name | Role | Phone | [...] | | | [place], [place] | [address] | | | | | [address] | [phone] | | | | | [phone] | | | +--------+ + + + [...] | | | | | | [place] [address] | | | | | | [phone] | | | | | | | | +--------+ + + + + | 03/26/ | Surgery | | Collin Guillen, | ARTHROSCOPY KNEE | | 2018 | | | DO [address], | with Partial Lateral | | | | | [place], [place] | Meniscectomy | | | | | [address] | | | | | | [phone] | | | | | | | [...] [place] | | | | | | [address] | | | | | | [phone] | | | | | | | | +--------+ + + + + as of this encounter Visit Diagnoses Not on filein this encounter"
--- OUTSIDE RECORDS SUMMARY | ~2018-02-09 | XMS | Encounter Summary ---
Demographics + + + | Address | [address] | | | [place] [address] | + + + | Home Phone | | + + + | Preferred Language | Unknown | + + + | Marital Status | | + + + | Lutheran Affiliation | 1041 | + + + | Race | Unknown | + + + | Ethnic Group | Unknown | + + + Author + + + | Author | [facility] | | | and [place] | + + + | Organization | [facility] | | | and [...] Team Providers + +------+ + | Care Electronic Semiconductor Processor Name | Role | Phone | + [...] | | chronicity | [place] | [address] | | | | | Procedures | [place] | Phone: | | | | | MRI Knee | [address] | [phone] | | | | | Right wo | Phone: | Fax: | | | | | Contrast | [phone] | [phone] | | | | | | Fax: | | | | | | | [phone] | | + +--------+ + + + [...] | | | [place], [place] | [address] | Dx) | | | | [address] | [phone] | | | | | [phone] | | | +--------+---------+ + + + [...] surgical or orthopedic supply stores). Follow your [facility] provider's advice about when to begin [...] splint. If you have to wear a tugf-ura-qbmntdmb brace, yo u can open it to apply the ice pack, or heat, directly to the knee. Never put ice directly o n the skin. Always wrap the ice in a towel or other type of cloth. You may mrfarhq-pyn-tawcazf pain medicineto control pain, unless another pain [...] wet, you can dry it with a hair spinning machine operator. If you have srtpj-yll-jqwdzgqc b race, you can remove this to [...] 24 to 48 hours Date Last Reviewed: 09/05/201519991745-4843 [employer]. [address] [place] [address], [place] [address]. All righ ts reserved. This information is not intended as a substitute for professional medical care. Always follow your healthcare professional's instructions. in this encounter Progress Notes Ayad Coleman MD - 11/21/2017 [address] 1960 [id number] 11/21/2017 History of Present Illness This is [...] [address] | | | | | | [place], | | | | | | [place] [address] | | | | | | [phone] | | | | | | | | +--------+ + + + + | 03/26/ | Surgery | | Collin Guillen, | ARTHROSCOPY KNEE | | 2017 | | | [address] , | with Partial Lateral | | | | | [place], [place] | Meniscectomy | | | | | [address] | | | | | | [phone] | | | | | | | [...] [place] | | | | | | [address] | | | | | | [phone] | | | | | | | [...]
--- OUTSIDE RECORDS SUMMARY | ~2018-02-09 | XMS | Encounter Summary ---
Demographics + + + | Address | [address] | | | [place] [address] | + + + | Home Phone | | + + + | Preferred Language | Unknown | + + + | Marital Status | | + + + | Roman Catholic Affiliation | 1041 | + + + | Race | Unknown | + + + | Ethnic Group | Unknown | + + + Author + + + | Author | [facility] | | | and [place] | + + + | Organization | [facility] | [...] Team Providers + +------+ + | Care Train Operations Supervisor Name | Role | Phone | + +------+ + | Greg Chandler MD | PCP | | + +------+ + Encounter Details +--------+ + + + + | Date | Type | Department | Care Team | Description | +--------+ + + + + | 11/21/ | Abstract | [facility] | Laura Beach, | | | 2017 | | [facility] | RN | | | | | [address] | | | | | | [place] | | | | | | [address] | | | | | | [phone] | | | +--------+ + + + [...] | 2017 | Visit | | [address] | | | | | | [place], | | | | | | [place] [address] | | | | | | [phone] | | | | | | | | +--------+ + + + + | 03/26/ | Surgery | | Collin Guillen, | ARTHROSCOPY KNEE | | 2017 | | | DO [address], | with Partial Lateral | | | | | [place], [place] | Meniscectomy | | | | | [address] | | | | | | [phone] | | | | | | | | +--------+ + + + + | 03/26/ | Procedure | | | | | 2017 | Pass | | | | +--------+ + + + + | 03/26/ | Hospital | | Collin Guillen, | | | 2017 | Encounter | | DO [address], | | | | | | [place] | | | | | | [address] | | | | | | [phone] | | | | | | | | +--------+ + + + + as of this encounter Visit Diagnoses Not on filein this encounter"
--- OUTSIDE RECORDS SUMMARY | ~2018-02-09 | XMS | Encounter Summary ---
Demographics + + + | Address | [address] | | | [place] [address] | + + + | Home Phone [...] Author | [facility] | | | and [place] | + + + | Organization | [facility] | | | and [place] | [...] Team Providers + +------+ + | Care Residential Green Building Designer Name | Role | Phone | + [...] [place] | | | | | | [address] | | | | | | [phone] | | | +--------+ + + + [...] | | | | | | [place] [address] | | | | | | [phone] | | | | | | | | +--------+ + + + + | 03/26/ | Surgery | | Collin Guillen, | ARTHROSCOPY KNEE | | 2017 | | | DO [address], | with Partial Lateral | | | | | [place], [place] | Meniscectomy | | | | | [address] | | | | | | [phone] | | | | | | | [...] [place] | | | | | | [address] | | | | | | [phone] | | | | | | | | +--------+ + + + + as of this encounter Visit Diagnoses Not on filein this encounter"
[~2018-02-09 11:13] MED LIST: PERCOCET 5-3251 EACH PO
[2018-02-09] MEDS ORDERED: NORCO 5-325 TA1 EACH PO (15:42)
== END 2018-02-09 16:06 | disposition home or self-care (01) ==
LOC: ED 11:13
DX: N17.9 Acute kidney failure, unspecified (principal)
CPT/HCPCS: 74176; 80053; 81001; 85025; 96361; 96374; 96375; 99284; J1885; J2405; J7030

== ENCOUNTER 2020-04-13 16:15 | Emergency (ER) | payer OTHER ==
[~2020-04-13] VITALS: Ht 167.6 cm; Wt 61.2 kg
--- OUTSIDE RECORDS SUMMARY | ~2020-04-13 | XMS | Encounter Summary ---
Demographics + + + | Address | [address] | | | [place] [address] | + + + | Home Phone | | + + + | Preferred Language | Unknown | + + + | Marital Status | | + + + | Pentecostal Affiliation | 1041 | + + + | Race | Unknown | + + + | Ethnic Group | Unknown | + + + Author + + + | Author | [facility] | | | and [place] | + + + | Organization | [facility] | | | and [place] | + + + | Address | Unknown | + + + | Phone | Unavailable | + + + Support + + +---------+ + | Name | Relationship | Address | Phone | + + +---------+ + | Darrion Gale | ECON | Unknown | | + + +---------+ + | Brijesh Capone | ECON | Unknown | | + + +---------+ + Care Team Providers + +------+ + | Care Signal Repairer Name | Role | Phone | + +------+ + | Greg Chandler MD | PCP | | + +------+ + Reason for Visit +--------+--------+ + | Reason | Onset | Comments | | | Date | | +--------+--------+ + | Other | 11/22/ | MRI Order | | | 2018 | | +--------+--------+ + Encounter Details +--------+ + + + + | Date | Type | Department | Care Team | Description | +--------+ + + + + | 11/22/ | Telephone | [facility] | Ayad Coleman, | Other (MRI Order) | | 2017 | | [facility] | [address] | | | | | [address] | [place] [address] | | | | | [place] | [phone] | | | | | [address] | | | | | | [phone] | | | +--------+ + + + [...] on file | | + + + documented as of this encounter Miscellaneous Notes Telephone Encounter - Laura Beach RN - 11/22/2017 1:22 PM PSTCalled pt, left voicem ail that MRI is in process of being authorized, and then it will be sent to [place]. Left number to please call back with any other quesitons or concerns. Thanks HMartens elephone Get barahona - Natacha Parikh - 11/22/2017 12:02 PM PSTPatient called and stated that the h ospital in [place] had not received the order for her MRI. She was wanting to know if it c ould be faxed to them. The fax number is [phone]. Thanks. documented in this encounter Plan of Treatment Not on filedocumented as of this encounter Visit Diagnoses Not on filedocumented in this encounter"
--- OUTSIDE RECORDS SUMMARY | ~2020-04-13 | XMS | Encounter Summary ---
Demographics + + + | Address | [address] | | | [place] [address] | + + + | Home Phone | | + + + | Preferred Language | Unknown | + + + | Marital Status | | + + + | Caodaism Affiliation | 1041 | + + + | Race | Unknown | + + + | Ethnic Group | Unknown | + + + Author + + + | Author | [facility] | | | and [place] | + + + | Organization | [facility] | | | and [...] Team Providers + +------+ + | Care Seafood Preparer Name | Role | Phone | + +------+ + | Greg Chandler MD | PCP | | + +------+ + Reason for Visit +--------+--------+ + | Reason | Onset | Comments | | | Date | | +--------+--------+ + | Triage | 07/08/ | | | | 2019 | | +--------+--------+ + Encounter Details +--------+ + + + + | Date | Type | Department | Care Team | Description | +--------+ + + + + | 07/08/ | Telephone | [facility] | Sole Bowens, | Triage | | 2019 | | [address] [place] | | | | | [place], [place] | | | | | | [address] | | | | | | [phone] | | | +--------+ + + + [...] + +---------+ + | Alcohol Use | Drinks/Week | oz/Week | Comments | + + +---------+ + | No | | | | + + +---------+ + + + + | Sex Assigned at | Date Recorded | | | | + + + | Not on file | | + + + documented as of this encounter Miscellaneous Notes Telephone Encounter - Sole Bowens RN - 07/08/2019 12:04 PM PDTDOS: 05/19/19 Sommer Regan Rescheduled to 07/23 Spoke to patient. Patient is concerned about her rescheduling directions because she is hav ing pain and has lots of questions. She states she is havign pain and swelling at the incisi on site at the knee. She states she can't bend knee and put a lot of weight on it at the celine e time. She is reporting pain at the incision sites near her ankle as well. She has a lot of swelli ng in the ankle. Normal sensation. She does elevate through out the day. Swelling goes down at night and increases during the day and with activity. Advised patient to continue to ice and elevate. Informed her that I would send a message to provider for re view and further recommendations. She states understanding. Patient is 2 hours away so she will need advanced notice if her appointment needs to move t o an earlier day if provider is concerned.Electronically signed by Sole Bowens RN at 12:22 PM PDTdocumented in this encounter Plan of Treatment Not on filedocumented as of this encounter Visit Diagnoses Not on filedocumented in this encounter"
--- OUTSIDE RECORDS SUMMARY | ~2020-04-13 | XMS | Encounter Summary ---
Demographics + + + | Address | [address] | | | [place] [address] | + + + | Home Phone | | + + + | Preferred Language | Unknown | + + + | Marital Status | | + + + | Evangelical Affiliation | 1041 | + + + | Race | Unknown | + + + | Ethnic Group | Unknown | + + + Author + + + | Author | [facility] | | | and [place] | + + + | Organization | [facility] | | | and [...] Team Providers + +------+ + | Care Material Handler 1St Shift Name | Role | Phone | + +------+ + | Greg Chandler MD | PCP | | + +------+ + Reason for Visit + +--------+ + | Reason | Onset | Comments | | | Date | | + +--------+ + | Appointment | 07/14/ | | | | 2019 | | + +--------+ + Encounter Details +--------+ + + + + | Date | Type | Department | Care Team | Description | +--------+ + + + + | 07/14/ | Telephone | [facility] | Sole Bowens, | Appointment | | 2019 | | [place] [address] | [place] | | | | | [place], [place] | | | | | | [address] | | | | | | [phone] | | | +--------+ + + + [...] Telephone Encounter - Sole Bowens RN - 07/14/2019 3:59 PM PDTDOS: 05/19/19 Tibia Nathaniel Patient states that her incision sites are looking a little better, about 10% better. She s tates that the knee is starting to straighten but is still having a lot of pain. She states the one by the ankle is getting better it is not causing as much pain. She repor ts no signs of infection. She is in agreement with plan to keep currently scheduled appointm ent. elephone Encount er - Sole Bowens RN - 07/14/2019 3:58 PM PDT----- Message from Michel Regan MD se nt at 07/13/2019 7:11 PDT ----- Ask infection questions. Pain and swelling that improves with rest is ok. Diffuse redness, etc. Needs more urgent attention ----- Message ----- From: Sole Bowens RN Sent: 07/08/2019 12:22 To: Michel Regan MD DOS: 05/19/19 Tibbia Rodjessica Patient was rescheduled to 07/23. She is having pain and swelling at her incision sites. Sh e states she cannot bend her knee and put a lot of weight on it simultaneously and wants to know if this is okay. Swelling goes down at night and increases with activity and throughout the day. Let me know if you need to move her to an earlier appointment. documented in this en counter Plan of Treatment Not on filedocumented as of this encounter Visit Diagnoses Not on filedocumented in this encounter"
--- OUTSIDE RECORDS SUMMARY | ~2020-04-13 | XMS | Encounter Summary ---
Demographics + + + | Address | [address] | | | [place] [address] | + + + | Home Phone | | + + + | Preferred Language | Unknown | + + + | Marital Status | | + + + | Worship Affiliation | 1041 | + + + | Race | Unknown | + + + | Ethnic Group | Unknown | + + + Author + + + | Author | [facility] | | | and [place] | + + + | Organization | [facility] | | | and [...] Team Providers + +------+ + | Care Channel Manager Name | Role | Phone | + +------+ + | Greg Chandler MD | PCP | | + +------+ + Reason for Referral Evaluate & Treat (Routine) +--------+ + + + + + | Status | Reason | Specialty | Diagnoses / | Referred By | Referred To | | | | | Procedures | Contact | Contact | +--------+ + + + + + | Closed | Specialty | Physical | Diagnoses | [facility], | | | | Services | Therapy | Displaced | Martin Chambers, | | | | Required | | transverse | PA-C [address] | | | | | | fracture of | [address] | | | | | | shaft of | [place] [address] | | | | | | left tibia, | [place], [place] | | | | | | subsequent | [address] | | | | | | encounter | Phone: | | | | | | for open | [phone] | | | | | | fracture | Fax: | | | | | | type I or II | [phone] | | | | | | with | | | | | | | routine | | | | | | | healing | | | +--------+ + + + + + Reason for Visit + + + | Reason | Comments | + + + | Post-op Exam | | + + + | Leg Pain | | + + + Self-referral (Routine) + +--------+ + + + + | Status | Reason | Specialty | Diagnoses / | Referred By | Referred To | | | | | Procedures | Contact | Contact | + +--------+ + + + + | Authorized | | Orthopedic | Diagnoses | | Black, | | | | Surgery | 2 week appt | | Michel | | | | | deb/patricia Espino | | [address] | | | | | open tibia | | [address] | | | | | Procedures | | [place], [place] | | | | | POST [place] | | [id number] Phone: | | | | | | | [phone] | | | | | | | Fax: | | | | | | | [phone] | + +--------+ + + + + Encounter Details +--------+---------+ + + + | Date | Type | Department | Care Team | Description | +--------+---------+ + + + | 09/03/ | Office | [facility] | Martin [facility]cleod, | Displaced transverse | | 2019 | Visit | [address] | PA-C [address] | fracture of shaft | | | | [address] [place], [place] | [address] | of left tibia, | | | | [address] | [place], [place] | subsequent encounter | | | | [phone] | [address] | for open fracture | | | | | [phone] | type I or II with | | | | | | routine healing | | | | | | (Primary Dx) | +--------+---------+ + + + Social History + +-------+ [...] + + documented as of this encounter Patient Instructions Patient Instructions Martin [facility] PA-C - 09/03/2019 3:20 PM PSTOk to continue weight bearing as tolerated Start physical therapy documented in this encounter Progress Notes Martin [facility] PA-C - 09/03/2019 3:20 PM PST 09/03/2019 INTERVAL HISTORY Patient presents to the office 14 weeks s/p IMN L tibia. She notes continued discomfort al aidan the proximal aspect of the tibia and medial knee that is currently rated as 4/10 in [place] veliz. She continues to be fully weightbearing and has slowly progressed her activity. Viviane mena recently went back to riding horses but has only done this 3 times over the last couple weeks. Feels that her strength has not fully returned to baseline. She is also continued t o have difficulty with flexing the great toe. Denies any altered sensation distally. There were no vitals filed for this visit. PHYSICAL EXAMINATION LLE - knee: Incisions are well healed. No swelling. TTP over the proximal aspect of the ti demetria in the area of the fracture. Unable to flex great toe. Extension to 0 degrees, flexion to approx 110 degrees. No ligament instability with valgus and varus stress. Sensation in tact distally. DIAGNOSTIC DATA: Recent Results (from the past 360 hour(s)) XR Tibia Fibula Left 2 Vw Narrative X-ray 2 views left tibia: Status post intramedullary nailing of a proximal tibial shaft transverse fracture with interval healing. No hardware complication is noted. Electronically signed by: Michel Regan MD 09/03/2019 4:03 PM ASSESSMENT/ PLAN 1. Displaced transverse fracture of shaft of left tibia, subsequent encounter for open frac ture type I or II with routine healing XR Tibia Fibula Left 2 Vw Ambulatory referral to Physical Therapy Alecia is 14 weeks s/p IMN L tibia. Imaging shows stable hardware and interval healing at t he fracture site. Provided referral to physical therapy to help with restoring motion and s trength. Patient has some discomfort in the area of the pes anserine tendons which may be a ttributed to the interlocking screws. Should this fail to improve we did discuss the possib ility of removing the hardware further into the future. She may continue to progress activi ty as tolerated. We will reassess her progress in 6 weeks. Orders Placed This Encounter Procedures XR Tibia Fibula Left 2 Vw Ambulatory referral to Physical Therapy Requested Prescriptions No prescriptions requested or ordered in this encounter Return in about 6 weeks (around 10/15/2019). Ok to continue weightbearing as tolerated Start physical therapy Xrays for next visit: 2 views left tib/fib Electronically signed by: Martin [facility] PA-C 09/04/2019 4:18 PM documented in thi s encounter Plan of Treatment + + +--------+ + + | Name | Type | Priori | Associated Diagnoses | Order Schedule | | | | ty | | | + + +--------+ + + | Ambulatory referral | Outpatient | Routin | Displaced | Ordered: 09/03/2019 | | to Physical Therapy | Referral | e | transverse fracture | | | | | | of shaft of left | | | | | | tibia, subsequent | | | | | | encounter for open | | | | | | fracture type I or | | | | | | II with routine | | | | | | healing | | + + +--------+ + + documented as of this encounter Results XR Tibia Fibula Left 2 Vw (09/03/2019 3:45 PM PST) + + | Specimen | + + | | + + + + + | Narrative | Performed At | + + + | X-ray 2 views | [facility] | | left tibia: Status post intramedullary nailing of a proximal tibial | | | shaft transverse fracture with interval healing. No hardware | | | complication is noted. Electronically signed by: Michel Regan MD | | | 09/03/2019 4:03 PM | | | | | + + + + +---------+ + + | Performing | Address | City/State/Zipcode | Phone Number | | Organization | | | | + +---------+ + + | [facility] | | | | + +---------+ + + documented in this encounter Visit Diagnoses + + | Diagnosis | + + | Displaced transverse fracture of shaft of left tibia, subsequent encounter for open | | fracture type I or II with routine healing - Primary | + + documented in this encounter"
--- OUTSIDE RECORDS SUMMARY | ~2020-04-13 | XMS | Encounter Summary ---
Demographics + + + | Address | [address] | | | [place] [address] | + + + | Home Phone | | + + + | Preferred Language | Unknown | + + + | Marital Status | | + + + | Anabaptist Affiliation | 1041 | + + + | Race | Unknown | + + + | Ethnic Group | Unknown | + + + Author + + + | Author | [facility] | | | and [place] | + + + | Organization | [facility] | | | and [...] Team Providers + +------+ + | Care Pot Lining Supervisor Name | Role | Phone | + +------+ + PCP | Unavailable | + +------+ + Encounter Details +--------+ + + + + | Date | Type | Department | Care Team | Description | +--------+ + + + + | 05/05/ | Hospital | [facility] | Rahul Engel | | | 2011 | Encounter | [facility] MED SURG | MD [address] | | | | | [address] | [address] | | | | | [place], [place] | [place] [address] | | | | | [address] | [phone] | | | | | [phone] | | | +--------+ + + + + Social History + +-------+ +--------+------+ | Tobacco Use | Types | Packs/Day | Years | Date | | | | | Used | | + +-------+ +--------+------+ | Never Assessed | | | | | + +-------+ +--------+------+ + + + | Sex Assigned at | Date Recorded | | | | + + + | Not on file | | + + + documented as of this encounter Miscellaneous Notes Op Note - Rahul Engel - 05/05/2012 7:50 AM PDT OPERATIVE REPORT DATE OF SURGERY: 05/05/2012 PREOPERATIVE DIAGNOSIS: Asymptomatic patient for initial screen. POSTOPERATIVE DIAGNOSIS: Normal exam. PROCEDURE: Full length colonoscopy. SURGEON: Rahul Engel MD INDICATIONS AND FINDINGS: The patient is a 52-year-old woman referred by Dr. Chandler for initial screening exam. She considers her bowel health to be good. There is no family history of colon cancer, colon p olyps, or inflammatory bowel disease that she is aware of. On brief review of systems there are no contraindications to the procedure. PHYSICAL EXAM: GENERAL: She is slender, alert, cooperative woman who appears her stated age. She does not appear acute or chronically ill. She is a good historian. HEENT: Examination of the face, head, eyes, ears, nose and throat finds no evidence of acut e or chronic illness. Oropharynx is clear. No mucosal lesions. Type 1 airway. NECK: Neck is supple, trachea midline, no thyromegaly, mass, node or bruits. No supraclavi cular node. CHEST: Clear to auscultation, no rales, wheeze, or stridor. CARDIAC: Normal sinus rhythm. No murmurs heard. BREASTS: Not examined. ABDOMEN: Flat, soft, nontender, without hepatosplenomegaly, guarding, mass, rebound, or bru its. Normal bowel sounds. PELVIC: Deferred. RECTUM: Inspection of the rectum finds no evidence of rectal or perirectal disease. SKIN: No specific lesion seen. NEURO: Physiologic, no ataxia, no asymmetry in appearance or movement. Cranial nerves II-X II grossly intact. Oriented x 3. IMPRESSION: Asymptomatic patient for initial colon screen. PARQ was held. She had the chance to ask q uestions. She has given consent. DESCRIPTION OF PROCEDURE: After obtaining consent, the patient is placed in the left lateral decubitus position. She actually preferred this position due to her recent injury which she sustained a fracture of her coccyx. The Olympus Videocolonoscope is inspected and found to be in proper working condition befor e it is inserted per anus and advanced through a well prepared bowel with only mild difficul ty beyond the hepatic flexure. The cecum was identified by palpation and by visualization of the ileal cecal valve and appendiceal orifice. The retained secret ions were irrigated away as the instrument was withdrawn identifying no pathology whatsoever . The patient tolerated this procedure well. POSTOPERATIVE DIAGNOSIS: Normal colonoscopy. Cc: Greg Chandler MD [facility] Signed and Approved by: RAHUL ENGEL MD 06/03/2012 10:18:00 documented in this enc ounter Plan of Treatment Not on filedocumented as of this encounter Visit Diagnoses Not on filedocumented in this encounter"
--- OUTSIDE RECORDS SUMMARY | ~2020-04-13 | XMS | Encounter Summary ---
Demographics + + + | Address | [address] | | | [place] [address] | + + + | Home Phone | | + + + | Preferred Language | Unknown | + + + | Marital Status | | + + + | Restorationist Affiliation | 1041 | + + + | Race | Unknown | + + + | Ethnic Group | Unknown | + + + Author + + + | Author | [facility] | | | and [place] | + + + | Organization | [facility] | | | and [...] Team Providers + +------+ + | Care Drum Plater Name | Role | Phone | + +------+ + PCP | Unavailable | + +------+ + Encounter Details +--------+ + + + + | Date | Type | Department | Care Team | Description | +--------+ + + + + | 04/01/ | Hospital | [facility] | Greg Chandler, | | | 2012 | Encounter | H[facility] XRAY [address] | | | | [address] | [place], [place] | | | | | [place], [place] | [address] | | | | | [address] | [phone] | | | | | [phone] | | | +--------+ + + + [...] + + documented as of this encounter Plan of Treatment Not on filedocumented as of this encounter Visit Diagnoses Not on filedocumented in this encounter"
--- OUTSIDE RECORDS SUMMARY | ~2020-04-13 | XMS | Encounter Summary ---
Demographics + + + | Address | [address] | | | [place] [address] | + + + | Home Phone | | + + + | Preferred Language | Unknown | + + + | Marital Status | | + + + | Voodoo Affiliation | 1041 | + + + | Race | Unknown | + + + | Ethnic Group | Unknown | + + + Author + + + | Author | [facility] | | | and [place] | + + + | Organization | [facility] | | | [...] Team Providers + +------+ + | Care Professor Of Sport Management Name | Role | Phone | + +------+ + PCP | Unavailable | + +------+ + Encounter Details +--------+ + + + + | Date | Type | Department | Care Team | Description | +--------+ + + + + | 02/03/ | Hospital | [facility] | Jose Gerson O, | | | 2013 | Encounter | [facility] | MD [address] [place], | | | | | [address]ari[address] | [place], [place] | | | | | [place], [place] | [address] | | | | | [address] | [phone] | | | | | [phone] | | | +--------+ + + + [...] + + documented as of this encounter Medications at Time of Discharge + + + +---------+ + + | Medication | Sig | Dispensed | Refills | Start | End Date | | | | | | Date | | + + + +---------+ + + | adult multivitamin | Take by mouth. | | 0 | 10/28/19 | | | liquid | | | | 13 | | + + + +---------+ + + | Calcium | Take by mouth. | | 0 | 10/28/19 | | | Carb-Cholecalciferol | | | | 13 | | | (CALCIUM 1000 + D | | | | | | | PO) | | | | | | + + + +---------+ + + | cholecalciferol | Take by mouth. | | 0 | 10/28/19 | | | (VITAMIN D-3) 1,000 | | | | 13 | | | units tablet | | | | | | + + + +---------+ + + | Misc Natural | Take by mouth. | | 0 | 10/28/19 | | | Products ([facility] | | | | 13 | | | [id number] | | | | | | | DS PO) | | | | | | + + + +---------+ + + documented as of this encounter Plan of Treatment Not on filedocumented as of this encounter Visit Diagnoses Not on filedocumented in this encounter"
--- OUTSIDE RECORDS SUMMARY | ~2020-04-13 | XMS | Encounter Summary ---
Demographics + + + | Address | [address] | | | [place] [address] | + + + | Home Phone | | + + + | Preferred Language | Unknown | + + + | Marital Status | | + + + | Judaism Affiliation | 1041 | + + + | Race | Unknown | + + + | Ethnic Group | Unknown | + + + Author + + + | Author | [facility] | | | and [place] | + + + | Organization | [facility] | | [...] Team Providers + +------+ + | Care Warp Clamper Name | Role | Phone | + +------+ + | Greg Chandler MD | PCP | | + +------+ + Reason for Visit + + + | Reason | Comments | + + + | Post-op Exam | | + + + | Knee Pain | | + + + Self-referral (Routine) + +--------+ + + + + | Status | Reason | Specialty | Diagnoses / | Referred By | Referred To | | | | | Procedures | Contact | Contact | + +--------+ + + + + | Authorized | | Orthopedic | Diagnoses | | Jass, | | | | Surgery | 2 week appt | | Michel | | | | | s/keisha [address]ZCA[address] L | | MD [address] | | | | | open tibia | | [address] | | | | | Procedures | | [place], [place] | | | | | POST OP | | [id number] Phone: | | | | | | | [phone] | | | | | | | Fax: | | | | | | | [phone] | + +--------+ + + + + Encounter Details +--------+---------+ + + + | Date | Type | Department | Care Team | Description | +--------+---------+ + + + | 10/16/ | Office | [facility] | Martin [facility]od, | Displaced transverse | | 2019 | Visit | [facility] [address]I [address] | fracture of shaft | | | | BL[address] [place], [place] | [address] | of left tibia, | | | | [address] | [place], [place] | subsequent encounter | | | | [phone] | [address] | for open fracture | | | | | [phone] | type I or II with | [...] Instructions Patient Instructions Martin Mcleod PA-C - 10/16/2019 9:10 AM PSTOk to slowly progress your activity level Call the office with any questions or concerns documented in this encounter Progress Notes Martin Mcleod PA-C - 10/16/2019 9:10 AM PST 10/16/2019 INTERVAL HISTORY Patient presents to the office 19 weeks s/p IMN L tibia. Reports improvement in symptoms s elvin our last visit, now having discomfort more distal that is rated as 2/10 in severity. S he also continues to have residual pain along the proximal/medial lower leg in the area of t he pes anserine tendons. She has progressed her level of activity and is back to horse ridi ng. There is increasing aching in the leg with prolonged activity. Patient has not partici pated in physical therapy due to extended travel time necessary to get there. Her motion an d strength are progressing towards baseline. Denies any altered sensation the affected extr emity distally. There were no vitals filed for this visit. PHYSICAL EXAMINATION LLE - knee: Incisions are well-healed. Tender to palpation over the pes anserine area and distal medial lower leg. Palpable lump in the area of the fracture. Knee extension to 0 de grees, flexion to apprx 120 degrees. Ankle motion WNL. Sensation intact distally. DIAGNOSTIC DATA: Recent Results (from the past 360 hour(s)) XR Tibia Fibula Left 2 Vw Narrative X-ray 2 views: Status post intramedullary nailing of a proximal third tibial shaft fracture with interval healing. No hardware complication is seen. Fracture line is yet visible. Electronically signed by: Michel Regan MD 10/16/2019 2:34 PM ASSESSMENT/ PLAN 1. Displaced transverse fracture of shaft of left tibia, subsequent encounter for open frac ture type I or II with routine healing XR Tibia Fibula Left 2 Vw Alecia is 19 weeks s/p IMN L tibia. Imaging demonstrates interval healing and stable positio juan of the hardware. She may continue to slowly progress activity as tolerated. I again en couraged her to participate in physical therapy to assist with maximizing motion, strength, and function. We will reassess her progress in 3 months. Orders Placed This Encounter Procedures XR Tibia Fibula Left 2 Vw Requested Prescriptions No prescriptions requested or ordered in this encounter Return in about 3 months (around 01/15/2020). Ok to slowly progress your activity level Call the office with any questions or concerns Xrays for next visit: 2 views left tib/fib Electronically signed by: Martin Mcleod PA-C 10/19/2019 11:06 AM documented in thi s encounter Plan of Treatment Not on filedocumented as of this encounter Results XR Tibia Fibula Left 2 Vw (10/16/2019 9:56 AM PST) + + | Specimen | + + | | + + + + + | Narrative | Performed At | + + + | X-ray 2 views: | [facility] | | Status post intramedullary nailing of a proximal third tibial shaft | | | fracture with interval healing. No hardware complication is seen. | | | Fracture line is yet visible. Electronically signed by: Michel | | | MD Jass 10/16/2019 2:34 PM | | | | | + [...]
--- OUTSIDE RECORDS SUMMARY | ~2020-04-13 | XMS | Encounter Summary ---
Demographics + + + | Address | [address] | | | [place] [address] | + + + | Home Phone | | + + + | Preferred Language | Unknown | + + + | Marital Status | | + + + | Quaker Affiliation | 1041 | + + + | Race | Unknown | + + + | Ethnic Group | Unknown | + + + Author + + + | Author | [facility] | | | and [place] | + + + | Organization | [facility] | | | [...] Team Providers + +------+ + | Care Thread Tool Grinder Set Up Operator Name | Role | Phone | + [...] | 2018 | Encounter | HOSPITAL | [address] | unspecified | | | | ORTHOPAEDICS XRAY | [place] [address] | chronicity | | | | [address] [place] | [phone] | | | | | [place] | | | | | | [address] | | | | | | [phone] | | | +--------+ + + + [...] Take by mouth. | | 0 | 01/15/20 | | | Carb-Cholecalciferol | | | [...] | | | 13 | | | [id number] | | | | | | | DS PO) | | | | | | + + + +---------+ + + | ibuprofen (ADVIL) | Take 200 mg by mouth | | 0 | 01/13/20 | | | 200 mg tablet | as needed. | | | 16 | 8 | + + + +---------+ + + documented as of this encounter Plan of Treatment Not on filedocumented as of this encounter Procedures + +--------+ + + + | Procedure Name | Priori | Date/Time | Associated Diagnosis | Comments | | | ty | | | | + +--------+ + + + | XR KNEE RIGHT 4 + VW | Routin | 11/21/2017 | Right knee pain, | Results for this | | | e | 2:44 PM | unspecified | procedure are in the | | | | PST | chronicity | results section. | + +--------+ + + + | XR KNEE LEFT 4 + VW | Routin | 11/21/2017 | Right knee pain, | Results for this | | | e | 2:44 PM | unspecified | procedure are in the | | | | PST | chronicity | results section. | + +--------+ + + + documented in this encounter Results XR Knee Left 4 + Vw (11/21/2017 2:44 PM PST) + + | Specimen | + + | | + + + + + | Impressions | Performed At | + + + | IMPRESSION: 1. No acute finding. 2. 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 Dictated by: Darrion Sapp | | | | | + + + + + + | Narrative | Performed At | + + + | EXAMINATION: XR KNEE RIGHT 4 + VW; XR KNEE LEFT 4 + VW HISTORY: | [facility] | | knee pain COMPARISON STUDY: MRI left knee 10/21/2015 | | | FINDINGS: Right knee: Lateral knee joint narrowing is present with | | | associated hypertrophic bone formation and sclerosis. Mild medial | | | knee narrowing. Left knee: Lateral knee joint narrowing with mild | | | hypertrophic bone formation. Mild hypertrophic bone formation | | | narrowing at the medial knee. No acute bone finding identified. | | | . | | + + + + + | Procedure Note | + + | Leander, Rad Results In - 11/21/2017 3:48 PM PST EXAMINATION:XR KNEE RIGHT 4 + VW; XR | | KNEE LEFT 4 + VWHISTORY:knee painCOMPARISON STUDY:MRI left [...] | | | + +---------+ + + XR Knee Right 4 + Vw (11/21/2017 2:44 PM PST) + + | Specimen | + + | | + + + + + | Impressions | Performed At | + + + | IMPRESSION: 1. No acute finding. 2. 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 Dictated by: Darrion Sapp | | | | | + + + + + + | Narrative | Performed At | + + + | EXAMINATION: XR KNEE RIGHT 4 + VW; XR KNEE LEFT 4 + VW HISTORY: | [facility] | | knee pain COMPARISON STUDY: MRI left knee 10/21/2015 | | | FINDINGS: Right knee: Lateral knee joint narrowing is present with | | | associated hypertrophic bone formation and sclerosis. Mild medial | | | knee narrowing. Left knee: Lateral knee joint narrowing with mild | | | hypertrophic bone formation. Mild hypertrophic bone formation | | | narrowing at the medial knee. No acute bone finding identified. | | | . | | + + + + + | Procedure Note | + + | Leander, Rad Results In - 11/21/2017 3:48 PM PST EXAMINATION:XR KNEE RIGHT 4 + VW; XR | | KNEE LEFT 4 + VWHISTORY:knee painCOMPARISON STUDY:MRI left [...] Right knee pain, unspecified chronicity | + + documented in this encounter"
--- OUTSIDE RECORDS SUMMARY | ~2020-04-13 | XMS | Encounter Summary ---
Demographics + + + | Address | [address] | | | [place] [address] | + + + | Home Phone | | + + + | Preferred Language | Unknown | + + + | Marital Status | | + + + | Gnosticist Affiliation | 1041 | + + + | Race | Unknown | + + + | Ethnic Group | Unknown | + + + Author + + + | Author | [facility] | | | and [place] | + + + | Organization | [facility] | | | [...] Team Providers + +------+ + | Care Airset Caster Name | Role | Phone | + +------+ + PCP | Unavailable | + +------+ + Encounter Details +--------+ + + + + | Date | Type | Department | Care Team | Description | +--------+ + + + + | 04// | Hospital | [facility] | Jose Gerson O, | | | 2013 | Encounter | [facility] | MD [address] [place], | | | | | [address] | [place], [place] | | | | | [place], [place] | [address] | | | | | [address] | [phone] | | | | | [phone] | | | +--------+ + + + [...] | | | 13 | | | [id number] | | | | | | | DS PO) | | | | | | + + + +---------+ + + documented as of this encounter Plan of Treatment Not on filedocumented as of this encounter Visit Diagnoses Not on filedocumented in this encounter"
--- OUTSIDE RECORDS SUMMARY | ~2020-04-13 | XMS | Encounter Summary ---
Demographics + + + | Address | [address] | | | [place] [address] | + + + | Home Phone | | + + + | Preferred Language | Unknown | + + + | Marital Status | | + + + | Denominational Affiliation | 1041 | + + + | Race | Unknown | + + + | Ethnic Group | Unknown | + + + Author + + + | Author | [facility] | | | and [place] | + + + | Organization | [facility] | | | [...] Team Providers + +------+ + | Care Cracker And Cookie Machine Operator Name | Role | Phone | + +------+ + PCP | Unavailable | + +------+ + Encounter Details +--------+ + + + + | Date | Type | Department | Care Team | Description | +--------+ + + + + | 03// | Hospital | [facility] | Jose Xiomara O, | | | 2012 | Encounter | HOSPITAL [facility]TRA OP | MD [address] , | | | | | [address] [place] | [place], [place] | | | | | [place], [place] | [address] | | | | | [address] | [phone] | | | | | [phone] | | | +--------+ + + + [...] | | | 13 | | | [id number] | | | | | | | DS PO) | | | | | | + + + +---------+ + + documented as of this encounter Miscellaneous Notes Op Note - Xiomara Ram - 01/07/2013 10:08 AM PDT OPERATIVE REPORT DATE OF SURGERY: 01/07/2013 PREOPERATIVE DIAGNOSIS: 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 PROCEDURE: Repair chronic ulnar collateral ligament tear at metacarpophalangeal joint right thumb with K-wire fixation of same joint. SURGEON: Xiomara Ram MD CONTROL PANEL BUILDER: Ev Arellano, RN ANESTHESIOLOGIST: Kirby Morel DO ANESTHESIA: General laryngeal mask. DESCRIPTION OF PROCEDURE: Following the onset of satisfactory general anesthesia and a final timeout verifying patien t, extremity, and procedure, the right hand and arm were prepped with BETADINE and ALCOHOL a nd then sterilely draped in the usual fashion. The extremity was exsanguinated and tourniquet inflated to 280 mmHg. A lazy S incision is created along the ulnar border of the thumb and extending up the dorsal first webspace. It is centered over t he metacarpophalangeal joint. Under loupe magnification careful subcutaneous dissection is undertaken identifying and preserving the ulnar neurovascular bu ndle to the thumb and entering the extensor retinaculum 3 or 4 mm volar to the main extensor pollicis longus tendon and this is then turned down such that we see the old ligament. There is good tissue present. The ligament is mobilized and prepared an d there is a good stump of tissue distally on the proximal phalanx such that we can repair t he old collateral ligament with multiple 3-0 Tycron sutures. Care is taken to suture to the ulnar edge of the volar plate as well as to the stump at the proxima l phalanx and then the joint capsule is repaired with 6-0 Prolene and the extensor retinacul um repaired with 3-0 Tycron. The joint was inspected and had a normal appearance. After the repair is accomplished a 0.045 inch K-wire is passed obliquely acros s the joint to stabilize it in a slightly over-corrected position and it is left long at the thumb metacarpal radial side such that it can be retrieved later. 8 mL 0.5% PLAIN MARCAINE was injected locally about the wound during closure. After closure a sterile dressing is applied and a short-arm thumb spica fiberglass splint is applied. The t ourniquet is released with prompt capillary filling of the digits. The patient is then taken to the recovery room in satisfactory condition having tolerated the p rocedure without complication. [facility] Signed and Approved by: XIOMARA RAM MD 01/19/2013 10:12:00 documented in this encounter Plan of Treatment Not on filedocumented as of this encounter Visit Diagnoses Not on filedocumented in this encounter"
--- OUTSIDE RECORDS SUMMARY | ~2020-04-13 | XMS | Encounter Summary ---
Demographics + + + | Address | [address] | | | [place] [address] | + + + | Home Phone | | + + + | Preferred Language | Unknown | + + + | Marital Status | | + + + | Taoism Affiliation | 1041 | + + + | Race | Unknown | + + + | Ethnic Group | Unknown | + + + Author + + + | Author | [facility] | | | and [place] | + + + | Organization | [facility] | | | and [place] | + + + | Address | Unknown | + + + | Phone | Unavailable | + + + Support + + +---------+ + | Name | Relationship | Address | Phone | + + +---------+ + | Darrion aGle | ECON | Unknown | | + + +---------+ + | Brijesh Capone | ECON | Unknown | | + + +---------+ + Care Team Providers + +------+ + | Care Backhaul Driver Name | Role | Phone | + +------+ + | Greg Chandler MD | PCP | | + +------+ + Encounter Details +--------+ + + + + | Date | Type | Department | Care Team | Description | +--------+ + + + + | 07/23/ | Hospital | [facility] | Michel Regan, | Displaced transverse | | 2019 | Encounter | [facility] [address] | MD [address] | fracture of shaft | | | | [address] | [place] [address] | of left tibia, | | | | [place], [place] | [phone] | subsequent encounter | | | | [address] | | for open fracture | | | | [phone] | | type I or II with | | | | | | routine healing | +--------+ + + + + Social [...] + + + +---------+ + + | | Take 1-2 tablets by | 35 | 0 | 06/02/20 | | | HYDROcodone-acetamin | mouth EVERY 4 TO 6 | tablet | | 19 | | | ophen (NORCO) 5-325 | HOURS NEEDED for | | | | | | mg per tablet | Pain. | | | | | + + + +---------+ + + | Misc Natural | Take by mouth. | | 0 | 10/28/19 | | | Products ([facility] | | | | 13 | | | [id number] | | | | | | | DS PO) | | | | | | + + + +---------+ + + | oxyCODONE | Take 1-2 tablets by | 60 | 0 | 03/26/20 | | | (ROXICODONE) 5 mg | mouth every 4 hours | tablet | | 18 | | | tablet | as needed for Pain. | | | | | + + + +---------+ + + documented as of this encounter Plan of Treatment Not on filedocumented as of this encounter Procedures + +--------+ + + + | Procedure Name | Priori | Date/Time | Associated Diagnosis | Comments | | | ty | | | | + +--------+ + + + | XR TIBIA FIBULA LEFT | Routin | 07/23/2019 | Displaced | Results for this | | 2 VW | e | 11:16 AM | transverse fracture | procedure are in the | | | | PDT | of shaft of left | results section. | | | | | tibia, subsequent | | | | | | encounter for open | | | | | | fracture type I or | | | | | | II with routine | | | | | | healing | | + +--------+ + + + documented in this encounter Results XR Tibia Fibula Left 2 Vw (07/23/2019 11:16 AM PDT) + + | Specimen | + + | | + + + + + | Narrative | Performed At | + + + | X-ray 2 views | [facility] | | left tibia: Slight interval healing of the midshaft tibia fracture | | | with stable appearing intramedullary nail fixation. No hardware | | | complication is noted. Electronically signed by: Michel Regan MD | | | 07/23/2019 11:18 | | | | | + + [...] type I or II with routine healing | + + documented in this encounter"
--- OUTSIDE RECORDS SUMMARY | ~2020-04-13 | XMS | Encounter Summary ---
Demographics + + + | Address | [address] | | | [place] [address] | + + + | Home Phone | | + + + | Preferred Language | Unknown | + + + | Marital Status | | + + + | Scientology Affiliation | 1041 | + + + | Race | Unknown | + + + | Ethnic Group | Unknown | + + + Author + + + | Author | [facility] | | | and [place] | + + + | Organization | [facility] | | | [...] Team Providers + +------+ + | Care Technical Manager Chemical Plant Name | Role | Phone | + [...] | Specialty | Physical | Diagnoses | Black, | | | | Services | Therapy | Displaced | ChrisJony, | | | | Required | | transverse | MD [address] | | | | | | fracture of | [address] | | | | | | shaft of | [place], [place] | | | | | | left tibia, | [address] | | | | | | subsequent | Phone: | | | | | | encounter | [phone] | | | | | | for open | Fax: | | | | | | fracture | [phone] | | | | | | type I or II | | | | | | | with | | | | | | | routine | | | | | | | healing | | | +--------+ + + + + + Reason for Visit Self-referral (Routine) + +--------+ + + + + | Status | Reason | Specialty | Diagnoses / | Referred By | Referred To | | | | | Procedures | Contact | Contact | + +--------+ + + + + | Authorized | | Orthopedic | Diagnoses | | Jass, | | | | Surgery | 2 week appt | | Michel, | | | | | s/p IMN L | | [address] | | | | | open tibia | | [address] | | | | | Procedures | | [place], [place] | | | | | POST OP | | [address] Phone: | | | | | | | [phone] | | | | | | | Fax: | | | | | | | [phone] | + +--------+ + + + + Encounter Details +--------+---------+ + + + | Date | Type | Department | Care Team | Description | +--------+---------+ + + + | 06/02/ | Office | [facility] | Michel Regan, | Displaced transverse | | 2019 | Visit | [address] | MD Srinath [address]RE[address] | fracture of shaft | | | | BLVD [place], [place] | [place] [address] | of left tibia, | | | | [address] | [phone] | subsequent encounter | | | | [phone] | | for open fracture | | | | | | type I or II with [...] + + documented as of this encounter Last Filed Vital Signs + + + + + | Vital Sign | Reading | Time Taken | Comments | + + + + + | Blood Pressure | 118/64 | 06/02/2019 2:18 PM | | | | | PDT | | + + + + + | Pulse | 88 | 06/02/2019 2:18 PM | | | | | PDT | | + + + + + | Temperature | - | - | | + + + + + | Respiratory Rate | - | - | | + + + + + | Oxygen Saturation | 99% | 06/02/2019 2:18 PM | | | | | PDT | | + + + + + | Inhaled Oxygen | - | - | | | Concentration | | | | + + + + + | Weight | 61.2 kg (135 lb) | 06/02/2019 2:18 PM | | | | | PDT | | + + + + + | Height | 167.6 cm (5' 6") | 06/02/2019 2:18 PM | | | | | PDT | | + + + + + | Body Mass Index | 21.79 | 06/02/2019 2:18 PM | | | | | PDT | | + + + + + documented in this encounter Patient Instructions Patient Instructions Michel Regan MD - 06/02/2019 2:10 PM PDTPlan on PT for range of motion and strengthening OK to return to work ~4wks, call if that needs to be changed Please call with any questions or concerns, or if your plan of care is not clear to you. documented in this encounter Progress Notes Michel Regan MD - 06/02/2019 2:10 PM PDTFormatting of this note might be different f rom the original. 06/02/2019 INTERVAL HISTORY Patient presents to the office 2 weeks s/p IMN L tibia. Relates level of pain as 7-10/10 i n severity. Has pain all the time. Does have numbness or tingling in her toes when she bends them. She is walking as tolerated. She is currently not doing any PT. Vitals: 06/02/19 1418 BP: 118/64 Pulse: 88 PHYSICAL EXAMINATION Left lower extremity: Well-healed surgical wounds without erythema or active drainage. Dis tally neurovascularly intact. DIAGNOSTIC DATA: No results found for this or any previous visit (from the past 360 hour(s)). ASSESSMENT/ PLAN 1. Displaced transverse fracture of shaft of left tibia, subsequent encounter for open frac ture type I or II with routine healing Ambulatory referral to Physical Therapy Patient is now 2 weeks status post left tibial intramedullary nailing. See below for the p paul Orders Placed This Encounter Procedures Ambulatory referral to Physical Therapy Requested Prescriptions Signed Prescriptions Disp Refills HYDROcodone-acetaminophen (NORCO) 5-325 mg per tablet 35 tablet 0 Sig: Take 1-2 tablets by mouth EVERY 4 TO 6 HOURS NEEDED for Pain. Return in about 1 month (around 06/30/2019). Plan on PT for range of motion and strengthening OK to return to work ~4wks, call if that needs to be changed Please call with any questions or concerns, or if your plan of care is not clear to you. Xrays for next visit: 2 views left tibia Electronically signed by: Michel Regan MD 06/05/2019 20:53 documented in this encounter Plan of Treatment + + +--------+ + + | Name | Type | Priori | Associated Diagnoses | Order Schedule | | | | ty | | | + + +--------+ + + | Ambulatory referral | Outpatient | Routin | Displaced | Ordered: 06/02/2019 | | to Physical Therapy | Referral [...] + + documented as of this encounter Visit Diagnoses + + | Diagnosis | + + | Displaced transverse fracture of shaft of left tibia, subsequent encounter for open | | fracture type I or II with routine healing - Primary | + + documented in this encounter
--- OUTSIDE RECORDS SUMMARY | ~2020-04-13 | XMS | Encounter Summary ---
Demographics + + + | Address | [address] | | | [place] [address] | + + + | Home Phone | | + + + | Preferred Language | Unknown | + + + | Marital Status | | + + + | Christianity Affiliation | 1041 | + + + | Race | Unknown | + + + | Ethnic Group | Unknown | + + + Author + + + | Author | [facility] | | | and [place] | + + + | Organization | [facility] | | | [...] Team Providers + +------+ + | Care Double Needle Operator Name | Role | Phone | [...] + | 12/31/ | Office | [facility] | Yoan Morgan | Degenerative tear of | | 2018 | Visit | [facility] | UMANG Espino | posterior horn of | | | | [address] [place] | | lateral meniscus of | | | | [place], [place] | | right knee (Primary | | | | [address] | | Dx); Primary | | | | [phone] | | osteoarthritis of | | | [...] | Blood Pressure | 122/68 | 12/31/2017 4:00 PM | | | | | PDT | | + + + + + | Pulse | 67 | 12/31/2017 4:00 PM | | | | | PDT | | + + + + + | Temperature | - | - | | + + + + + | Respiratory Rate | 16 | 12/31/2017 4:00 PM | | | | | PDT | | + + + + + | Oxygen Saturation | 99% | 12/31/2017 4:00 PM | | | | | PDT | | + + + + + | Inhaled Oxygen | - | - | | | Concentration | | | | + + + + + | Weight | 61.2 kg (135 lb) | 12/31/2017 4:00 PM | | | | | PDT | | + + + + + | Height | 167.6 cm (5' 6") | 12/31/2017 4:00 PM | | | | | PDT | | + + + + + | Body Mass Index | 21.79 | 12/31/2017 4:00 PM | | | | | PDT | | + + + + + documented in this encounter Patient Instructions Patient Instructions Yoan Morgan PA - 12/31/2017 4:43 PM PDTFormatting of this no te might be different from the original. Understanding Meniscal [...] knee helps support it. Medicine. Prescription and qfwk-gzu-jxobqmd pain medicines can help relieve swelling and [...] leg Your knee locks Date Last Reviewed: 12/22/201519994159-1168 [email or web address]. [address] [place] [address], [place] [address]. All righ ts reserved. This information is [...] and you may have stitches, steri-strips, or sehrin. You may need crutches to keep weight off the knee and may have a splint for support. Date Last Reviewed: 06/17/201519996287-6444 [email or web address]. [address] [place] [address], [place] [address]. All righ ts reserved. This information is not intended as a substitute for professional medical care. Always follow your healthcare professional's instructions. documented in this encounter Progress Notes Yoan Morgan PA - 12/31/2017 3:30 PM PDT Date of Service: 12/31/2017 Provider: Yoan Morgan [...] mouth as needed. Misc Natural Products ([facility] [id number]-LAR DS PO) Take by mouth. No current [...] by: Yoan Morgan PA-C 12/31/2017 19:09 CC: Grge Chandler MD No ref. provider found Note: Part of this report was transcribed using voice recognition software. Every effort wa s made to ensure accuracy. However, inadvertent computerized collision technician errors may be pre sent. Associated attestation - Collin Guillen DO - 01/01/2018 7:57 PM PDTIn my face to face encounter with this patient a history and physical examination was performed and direction r egarding management was provided for Charles JUDD. I reviewed his note and agree with th e documented findings and plan of care. 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
--- OUTSIDE RECORDS SUMMARY | ~2020-04-13 | XMS | Encounter Summary ---
Demographics + + + | Address | [address] | | | [place] [address] | + + + | Home Phone | | + + + | Preferred Language | Unknown | + + + | Marital Status | | + + + | Church Affiliation | 1041 | + + + | Race | Unknown | + + + | Ethnic Group | Unknown | + + + Author + + + | Author | [facility] | | | and [place] | + + + | Organization | [facility] | | | [...] Team Providers + +------+ + | Care Steam Table Worker Name | Role | Phone | + +------+ + | Greg Chandler MD | PCP | | + +------+ + Reason for Visit + +--------+ + | Reason | Onset | Comments | | | Date | | + +--------+ + | Appointment | 12/27/ | | | | 2018 | | + +--------+ + Encounter Details +--------+ + + + + | Date | Type | Department | Care Team | Description | +--------+ + + + + | 12/27/ | Telephone | [facility] | Anatoly Bravo FNP | Appointment | | 2017 | | [facility] | [address] [place] | | | | | [address] | [place], [place] | | | | | [place] | [address] | | | | | [address] | [phone] | | | | | [phone] | | | +--------+ + + + [...] this encounter Miscellaneous Notes Telephone Encounter - Eve Hernández - 12/27/2017 2:55 PM PDTPatient has been scheduled, allen vera said she had her MRI in [place], did we receive everything? elephone Encounter - Natacha Camarillo CC CMA - 12/12 9:09 AM PDTLM for patient to call clinic and make an MRI R Knee FU with Carlos Bravo. Fawn camarillo CCMA documented in this encounter Plan of Treatment Not on filedocumented as of this encounter Visit Diagnoses Not on filedocumented in this encounter"
--- OUTSIDE RECORDS SUMMARY | ~2020-04-13 | XMS | Encounter Summary ---
Demographics + + + | Address | [address] | | | [place] [address] | + + + | Home Phone | | + + + | Preferred Language | Unknown | + + + | Marital Status | | + + + | Mandaeism Affiliation | 1041 | + + + | Race | Unknown | + + + | Ethnic Group | Unknown | + + + Author + + + | Author | [facility] | | | and [place] | + + + | Organization | [facility] | | | [...] Team Providers + +------+ + | Care Aircraft Mechanic Armament Name | Role | Phone | + +------+ + PCP | Unavailable | + +------+ + Encounter Details +--------+ + + + + | Date | Type | Department | Care Team | Description | +--------+ + + + + | 05/07/ | Hospital | [facility] | Jose Gerson O, | | | 2013 | Encounter | [facility] | MD Potter [place], | | | | | Tariq [place] [address] | [place], [place] | | | | | [place], [place] | [address] | | | | | [address] | [phone] | | | | | [phone] | | | +--------+ + + + [...] | | | 13 | | | [id number] | | | | | | | DS PO) | | | | | | + + + +---------+ + + documented as of this encounter Plan of Treatment Not on filedocumented as of this encounter Visit Diagnoses Not on filedocumented in this encounter"
--- OUTSIDE RECORDS SUMMARY | ~2020-04-13 | XMS | Encounter Summary ---
Demographics + + + | Address | [address] | | | [place] [address] | + + + | Home Phone | | + + + | Preferred Language | Unknown | + + + | Marital Status | Single | + + + | Judaism Affiliation | Unknown | + + + | Race | Unknown | + + + | Ethnic Group | Other Race | + + + Author + + + | Author | [facility] | + + + | Organization | [facility] | + + + | Address | Unknown | + + + | Phone | Unavailable | + + + Care Team Providers + +------+ + | Care Custom Feed Mill Operator Name | Role | Phone | + +------+ + PCP | Unavailable | + +------+ + Encounter Details +--------+ + + + + | Date | Type | Department | Care Team | Description | +--------+ + + + + | 01/13/ | Results | [facility] | [place], | | | 2009 | Only | Department | MD Segun Alatorre | | | | | | [address] | | | | | | [address] | | | | | | [address] | | | | | | [place], [place] | | | | | | [address] | | | | | | | [...] on file | | + + + + + + + | Job Start Date | Occupation | Industry | + + + + | Not on file | Not on file | Not on file | + + + + + + + + | Travel History | Travel Start | Travel End | + + + + + + | No recent travel history available. | + + documented as of this encounter Plan of Treatment Not on filedocumented as of this encounter Procedures + +--------+ + + + | Procedure Name | Priori | Date/Time | Associated Diagnosis | Comments | | | ty | | | | + +--------+ + + + | DERMATOPATHOLOGY(CON | Routin | 01/13/2010 | | Results for this | | SULT) | e | | | procedure are in the | | | | | | results section. | + +--------+ + + + documented in this encounter Results DERMATOPATHOLOGY(CONSULT) (01/13/2010) + + + + + + | Component | Value | Ref Range | Performed | Pathologist | | | | | At | Signature | + + + + + + | DERMATOPATH | SOURCE OF SPECIMEN:A | | [facility] | | | (CONSULT) | CONSULTATION | | DERMATOPATH | | | | CLINICAL | | OLOGY | | | | DESCRIPTION:Punch, Lt. | | | | | | dorsal forearm, 4mm | | | | | | adkins/brown asymmetrical | | | | | | papule, R/O | | | | | | atypicalnevus vs. SK.1 | | | | | | slide ([id number]) | | | | | | received. Dear | | | | | | Fermin: | | | | | | Thank you for asking | | | | | | us to review Alecia | | | | | | Coote's left dorsal | | | | | | forearmbiopsy where | | | | | | there is hyperkeratosis | | | | | | and hypergranulosis | | | | | | overlyingirregular | | | | | | epidermal hyperplasia. | | | | | | There is focal vacuolar | | | | | | alteration of thebasal | | | | | | layer with dyskeratosis | | | | | | and a band-like | | | | | | lymphocytic infiltrate | | | | | | whichpartially obscures | | | | | | the basal layer. There | | | | | | is abundant solar | | | | | | elastosis. | | | | | | DIAGNOSIS:SEBORRHEIC | | | | | | KERATOSIS, INFLAMED. | | | | | | The seborrheic | | | | | | keratosis has | | | | | | overlapping features | | | | | | with LICHEN | | | | | | PLANUS-LIKEKERATOSIS. | | | | | | Thank you for | | | | | | referring this | | | | | | consultation.1 slide | | | | | | ([id number]) returned to | | | | | | Dr. Christensen. | | | | | | KPW:emr01/23/10 My | | | | | | electronic signature | | | | | | indicates that I have | | | | | | personally reviewed | | | | | | alldiagnostic slides, | | | | | | the gross and/or | | | | | | microscopic portion of | | | | | | thisreport and | | | | | | formulated the final | | | | | | diagnosis. | | | | | | Rendering Diagnostician: | | | | | | Edy Silva | | | | | | Perlita | | | | | | bert Signed 01/23/2010 | | | | + + + + + + + + | Specimen | + + | | + + + + + + + | Performing | Address | City/State/Zipcode | Phone Number | | Organization | | | | + + + + + | [facility] | [address] | [place] [address] | | | DERMATOPATHOLOGY | [address] | | | + + + + + documented in this encounter Visit Diagnoses Not on filedocumented in this encounter"
--- OUTSIDE RECORDS SUMMARY | ~2020-04-13 | XMS | Encounter Summary ---
Demographics + + + | Address | [address] | | | [place] [address] | + + + | Home Phone | | + + + | Preferred Language | Unknown | + + + | Marital Status | | + + + | Yazidism Affiliation | 1041 | + + + | Race | Unknown | + + + | Ethnic Group | Unknown | + + + Author + + + | Author | [facility] | | | and [place] | + + + | Organization | [facility] | | [...] Team Providers + +------+ + | Care Supervisor [employer] Name | Role | Phone | + +------+ + | Greg Chandler MD | PCP | | + +------+ + Encounter Details +--------+ + + + + | Date | Type | Department | Care Team | Description | +--------+ + + + + | 09/03/ | Hospital | [facility] | Michel Regan, | Displaced transverse | | 2019 | Encounter | [facility] | MD [address] | fracture of shaft | | | | [address] | [place] [address] | of left tibia, | | | | [place], [place] | [phone] | subsequent encounter | | | | [address] | | for open fracture | | | | [phone] | | type I or II with [...] | | | 13 | | | [id number] | | | | | | | [...] XR TIBIA FIBULA LEFT | Routin | 09/03/2019 | Displaced | Results for this | | 2 VW | e | 3:45 PM | transverse fracture | procedure are in the | | | | PST | of shaft of left | results [...]
--- OUTSIDE RECORDS SUMMARY | ~2020-04-13 | XMS | Clinical Summary ---
Demographics + + + | Address | [address] | | | [place] [address] | + + + | Home Phone | | + + + | Preferred Language | Unknown | + + + | Marital Status | Single | + + + | Uatsdin Affiliation | Unknown | + + + | Race | Unknown | + + + | Ethnic Group | Other Race | + + + Author + + + | Author | [facility] | + + + | Organization | [facility] | + + + | Address | Unknown | + + + | Phone | Unavailable | + + + Care Team Providers + +------+ + | Care Track Repairer Helper Name | Role | Phone | + +------+ + PCP | Unavailable | + +------+ + Source Comments [facility] is fully live on both [facility] and [facility] InPatient.[facility] Allergies Not on File Medications Not on file Active Problems Not on file Social History + +-------+ +--------+------+ | Tobacco [...] recent travel history available. | + + Last Filed Vital Signs Not on file Plan of Treatment + + + + + | Health Maintenance | Due Date | Last Done | Comments | + + + + + | Influenza (Flu) | | | | | vaccination (#1) | 9 | | | + + + + + | Pneumococcal | Aged Out | | No longer eligible | | vaccination | | | based on patient's | | | | | age to complete this | | | | | topic | + + + + + Results Not on filefrom Last 3 Months Insurance + +--------+ +--------+ + +------+ | Payer | Benefi | Subscriber | Effect | Phone | Address | Type | | | t Plan | ID | floridalma | | | | | | / | | Dates | | | | | | Group | | | | | | + +--------+ +--------+ + +------+ | [employer] | MODA | [phone] | | [phone] | [address] | PPO | | | [employer] | | [phone] | | | | [place] | | esent | | [place], | | | | [place] | | | | [place] [address] | | + +--------+ +--------+ + +------+ + +--------+ +--------+ + + | Guarantor Name | Accoun | Relation to | Date | Phone | Billing Address | | | t Type | Patient | of | | | | | | | | | | + +--------+ +--------+ + + | Alecia Gale | Person | Self | [birth year] | [address] | | | [place] | | [address] | [phone] | [place] | | | cristy | | | [address] [place]) | [address] | + +--------+ +--------+ + +"
--- OUTSIDE RECORDS SUMMARY | ~2020-04-13 | XMS | Encounter Summary ---
Demographics + + + | Address | [address] | | | [place] [address] | + + + | Home Phone | | + + + | Preferred Language | Unknown | + + + | Marital Status | | + + + | Voodoo Affiliation | 1041 | + + + | Race | Unknown | + + + | Ethnic Group | Unknown | + + + Author + + + | Author | [facility] | | | and [place] | + + + | Organization | [facility] | | | [...] Team Providers + +------+ + | Care Station Attendant Name | Role | Phone | + +------+ + | Greg Chandler MD | PCP | | + +------+ + Encounter Details +--------+ + + + + | Date | Type | Department | Care Team | Description | +--------+ + + + + | 02/09/ | Orders Only | [facility] | Conversion | | | 2017 | | NEPHROLOGY JULIA | Transaction, | | | | | [address] | Provider Unknown | | | | | [address] [facility] [place] | | | | | | [address] | (Fax) | | | | | [phone] | | | +--------+ + + + [...] | + +--------+ + + + | COMPREHENSIVE | Routin | 02/09/2018 | | Results for this | | METABOLIC PANEL | e | 1:25 PM | | procedure are in the | | | | PDT | | results section. | + +--------+ + + + documented in this encounter Results Comprehensive Metabolic Panel (02/09/2018 1:25 PM PDT) + +---------+ + + + | Component | Value | Ref Range | Performed | Pathologist | | | | | At | Signature | + +---------+ + + + | Glucose, | 95 | 70 - 100 mg/dL | EXTERNAL | | | Fasting | | | LAB | | + +---------+ + + + | BUN | 41 (A) | 6 - 23 mg/dL | EXTERNAL | | | | | | LAB | | + +---------+ + + + | Creatinine | 2.8 (A) | 0.7 - 1.33 | EXTERNAL | | | | | mg/dL | LAB | | + +---------+ + + + | BUN/Creatin | 14.6 | 6.0 - 28.6 | EXTERNAL | | | ine Ratio | | | LAB | | + +---------+ + + + | Calcium | 8.9 | 8.4 - 10.2 | EXTERNAL | | | | | mg/dL | LAB | | + +---------+ + + + | Protein, | 6.2 | 6.0 - 8.0 g/dL | EXTERNAL | | | Total | | | LAB | | + +---------+ + + + | Albumin | 3.9 | 3.5 - 5.0 | EXTERNAL | | | | | | LAB | | + +---------+ + + + | Globulin | 2.3 | 1.8 - 3.5 | EXTERNAL | | | | | | LAB | | + +---------+ + + + | A/G Ratio | 1.7 | 1.1 - 2.4 | EXTERNAL | | | | | | LAB | | + +---------+ + + + | Bilirubin | 1.2 | 0.0 - 1.2 mg/dL | EXTERNAL | | | Total | | | LAB | | + +---------+ + + + | ALP, | 103 | 31 - 130 | EXTERNAL | | | External | | | LAB | | + +---------+ + + + | ALT | 52 | 7 - 52 U/L | EXTERNAL | | | | | | LAB | | + +---------+ + + + | AST | 62 (A) | 13 - 39 U/L | EXTERNAL | | | | | | LAB | | + +---------+ + + + | Na | 135 | 132 - 143 | EXTERNAL | | | | | mmol/L | LAB | | + +---------+ + + + | K | 3.7 | 3.6 - 5.1 | EXTERNAL | | | | | mmol/L | LAB | | + +---------+ + + + | Cl | 102 | 95 - 112 mmol/L | EXTERNAL | | | | | | LAB | | + +---------+ + + + | CO2 | 25 | 19 - 31 mmol/L | EXTERNAL | | | | | | LAB | | + +---------+ + + + | Anion Gap | 11.7 | 7 - 21 mmol/L | EXTERNAL | | | | | | LAB | | + +---------+ + + + | Estimated | 17 (A) | 60 mg/dL | EXTERNAL | | | GFR | | | LAB | | + +---------+ + + + + + | Specimen | + + | Blood specimen | | (specimen) | + + + +---------+ + + | Performing | Address | City/State/Zipcode | Phone Number | | Organization | | | | + +---------+ + + | EXTERNAL LAB | | | | + +---------+ + + documented in this encounter Visit Diagnoses Not on filedocumented in this encounter"
--- OUTSIDE RECORDS SUMMARY | ~2020-04-13 | XMS | Encounter Summary ---
Demographics + + + | Address | [address] | | | [place] [address] | + + + | Home Phone | | + + + | Preferred Language | Unknown | + + + | Marital Status | | + + + | Christianity Affiliation | 1041 | + + + | Race | Unknown | + + + | Ethnic Group | Unknown | + + + Author + + + | Author | [facility] | | | and [place] | + + + | Organization | [facility] | | [...] Team Providers + +------+ + | Care Timber Framer Name | Role | Phone | + +------+ + | Greg Chandler MD | PCP | | + +------+ + Encounter Details +--------+ + + + + | Date | Type | Department | Care Team | Description | +--------+ + + + + | 02/11/ | Orders Only | [facility] | Conversion | | | 2018 | | NEPHROLOGY JULIA | Transaction, | | | | | [address] | Provider Unknown | | | | | [address] [facility] [place] | | | | | | [address] | (Fax) | | | | | [phone] | | | +--------+ + + + [...] | + +--------+ + + + | CREATININE, URINE, | Routin | 02/11/2018 | | Results for this | | 24HR | e | 4:27 PM | | procedure are in the | | | | PDT | | results section. | + +--------+ + + + | URINALYSIS, | Routin | 02/11/2018 | | Results for this | | MICROSCOPIC ONLY | e | 4:27 PM | | procedure are in the | | | | PDT | | results section. | + +--------+ + + + | CULTURE, URINE | Routin | 02/11/2018 | | Results for this | | | e | 4:27 PM | | procedure are in the | | | | PDT | | results section. | + +--------+ + + + documented in this encounter Results Culture, Urine (02/11/2018 4:27 PM PDT) + + | Specimen | + + | Urine specimen | | (specimen) | + + + + + | Narrative | Performed At | + + + | Specimen Description Urine CULTURE | EXTERNAL LAB | | No Growth at 18-24 hrs. REPORT | | | STATUS Final | | + + + + +---------+ + + | Performing | Address | City/State/Zipcode | Phone Number | | Organization | | | | + +---------+ + + | EXTERNAL LAB | | | | + +---------+ + + Creatinine, Urine, 24Hr (02/11/2018 4:27 PM PDT) + +-------+ + + + | Component | Value | Ref Range | Performed | Pathologist | | | | | At | Signature | + +-------+ + + + | CREATININE | | mL/min | EXTERNAL | | | CLEARANCE | | | LAB | | + +-------+ + + + | Creatinine | 0.79 | 0.7 - 1.33 | EXTERNAL | | | | | | LAB | | + +-------+ + + + | Creatinine, | 0 (A) | 14 - 22 | EXTERNAL | | | Urine, | | | LAB | | | Random | | | | | + +-------+ + + + | Creatinine, | | | EXTERNAL | | | Urine, | | | LAB | | | Random | | | | | + +-------+ + + + + + | Specimen | + + | Urine specimen | | (specimen) | + + + +---------+ + + | Performing | Address | City/State/Zipcode | Phone Number | | Organization | | | | + +---------+ + + | EXTERNAL LAB | | | | + +---------+ + + Urinalysis, Microscopic Only (02/11/2018 4:27 PM PDT) + + + + + + | Component | Value | Ref Range | Performed | Pathologist | | | | | At | Signature | + + + + + + | Color | Yellow | | EXTERNAL | | | | | | LAB | | + + + + + + | Clarity | Clear | | EXTERNAL | | | | | | LAB | | + + + + + + | Specific | 1.005 | 1.005 - 1.030 | EXTERNAL | | | [place], | | | LAB | | | Urine | | | | | + + + + + + | Leukocyte | Negative | | EXTERNAL | | | Esterase, | | | LAB | | | Urine | | | | | + + + + + + | Nitrite, | Negative | | EXTERNAL | | | Urine | | | LAB | | + + + + + + | Urobilinoge | Normal | | EXTERNAL | | | n, Urine | | | LAB | | + + + + + + | Protein, | Negative | | EXTERNAL | | | Urine | | | LAB | | + + + + + + | pH, Urine | 5 | 5 - 9 | EXTERNAL | | | | | | LAB | | + + + + + + | Blood, | Negative | | EXTERNAL | | | Urine | | | LAB | | + + + + + + | Ketones | Negative | | EXTERNAL | | | | | | LAB | | + + + + + + | Bilirubin, | Negative | | EXTERNAL | | | Urine | | | LAB | | + + + + + + | Glucose, | Negative | | EXTERNAL | | | Urine | | | LAB | | + + + + + + + + | Specimen | + + | Urine specimen | | (specimen) | + + + + + | Narrative | Performed At | + + + | WBC's: 5 Epithelial: Squamous 1+, Transitional 1+ | EXTERNAL LAB | + + + + +---------+ + + | Performing | Address | City/State/Zipcode | Phone Number | | Organization | | | | + +---------+ + + | EXTERNAL LAB | | | | + +---------+ + + documented in this encounter Visit Diagnoses Not on filedocumented in this encounter"
--- OUTSIDE RECORDS SUMMARY | ~2020-04-13 | XMS | Encounter Summary ---
Demographics + + + | Address | [address] | | | [place] [address] | + + + | Home Phone | | + + + | Preferred Language | Unknown | + + + | Marital Status | | + + + | Adventist Affiliation | 1041 | + + + | Race | Unknown | + + + | Ethnic Group | Unknown | + + + Author + + + | Author | [facility] | | | and [place] | + + + | Organization | [facility] | | | and [...] Team Providers + +------+ + | Care Building Equipment Inspector Name | Role | Phone | + +------+ + | Greg Chandler MD | PCP | | + +------+ + Reason for Visit Auth/Cert (Routine) +--------+--------+ + + + + | Status | Reason | Specialty | Diagnoses / | Referred By | Referred To | | | | | Procedures | Contact | Contact | +--------+--------+ + + + + | | | | Diagnoses | | | | | | | Complex | | | | | | | tear of | | | | | | | lateral | | | | | | | meniscus, | | | | | | | current | | | | | | | injury, | | | | | | | right knee, | | | | | | | initial | | | | | | | encounter | | | | | | | Other tear | | | | | | | of lateral | | | | | | | meniscus, | | | | | | | current | | | | | | | injury, | | | | | | | right knee, | | | | | | | initial | | | | | | | encounter | | | | | | | Procedures | | | | | | | NC ARTHRS | | | | | | | KNE SURG | | | | | | | W/MENISCECTO | | | | | | | MY MED/LAT | | | | | | | W/SHVG | | | +--------+--------+ + + + + Encounter Details +--------+ + + + + | Date | Type | Department | Care Team | Description | +--------+ + + + + | 03/26/ | Anesthesia | [facility] | Jarod Regan, | | | 2018 | Event | [facility] | ACTUARIAL ASSOCIATE [address] | | | | | [address] [place] | [place] [address] | | | | | [place], [place] | [phone] | | | | | [address] | | | | | | [phone] | | | +--------+ + + + + Anesthesia Record + + + + + | Procedure Name | Responsible | Anesthesia Start | Anesthesia Stop Time | | | Anesthesiologist | Time | | + + + + + | ARTHROSCOPY KNEE | Jarod Regan, | 03/26/18 0743 | 03/26/18 0828 | | with Partial Lateral | ACTUARIAL ASSOCIATE | | | | Meniscectomy (Right | | | | | Knee) | | | | + + + + + +----+---+ + + | Da | T | Event | Comment | | te | i | | | | | m | | | | | e | | | +----+---+ + + | 06 | 0 | An Checkout | Pre-use anesthesia machine/equipment checkout. | | /1 | 7 | | | | 3/ | 4 | | | | 20 | 0 | | | | 18 | | | | +----+---+ + + | | 0 | An Start | Reassessment prior to anesthesia induction/procedure. | | | 7 | | | | | 4 | | | | | 3 | | | +----+---+ + + | | 0 | Preoxygenat | | | | 7 | ed | | | | 4 | | | | | 4 | | | +----+---+ + + | | 0 | An | | | | 7 | Induction | | | | 4 | | | | | 6 | | | +----+---+ + + | | 0 | An | | | | 7 | Intubation | | | | 4 | | | | | 7 | | | +----+---+ + + | | 0 | Breathing | | | | 7 | Spontaneous | | | | 4 | ly | | | | 9 | | | +----+---+ + + | | 0 | First | | | | 7 | Inc/Proc St | | | | 5 | | | | | 8 | | | +----+---+ + + | | 0 | An Tourn | | | | 7 | Inflated | | | | 5 | | | | | 8 | | | +----+---+ + + | | 0 | [place] | | | | 8 | 43-degrees | | | | 0 | | | | | 0 | | | +----+---+ + + | | 0 | An Tourn | | | | 8 | Deflated | | | | 2 | | | | | 0 | | | +----+---+ + + | | 0 | an stop | | | | 8 | data | | | | 2 | | | | | 6 | | | +----+---+ + + | | 0 | An Stop | Patient handed off to recovery nurse. | | | 2 | | | | | 8 | | | +----+---+ + + +------+ | Meds | +------+ + +--------+ | Name | Total | + +--------+ | midazolam 1 mg/mL (2 mL vial) | 2 mg | + +--------+ | lidocaine 2% | 60 mg | + +--------+ | propofol | 150 mg | + +--------+ | dexamethasone 4 mg/mL | 4 mg | + +--------+ | fentaNYL | 50 mcg | + +--------+ | ondansetron | 4 mg | + +--------+ | ceFAZolin in dextrose (ANCEF) | 2 g | | IVPB 2 g | | + +--------+ | lactated ringers (Infusion) | 500 mL | + +--------+ + + | Name | + + | N2O Flow Rate (L/Min) | + + | O2 Flow Rate (L/Min) | + + | Insp O2 | + + | Exp N2O | + + | Exp SEV | + + | Exp ISO | + + | Exp KOSTA | + + | Air Flow Rate (L/Min) | + + + + | No blood administrations on file. | + + +--------+ + + + | Type | Details | Placement | Removal | +--------+ + + + | Airway | Placement Date: 03/26/18; | 03/26/18 0747 by | | | | Placement Time: 746; Mask | Jarod Regan, | | | | Ventilation: EZ; Airway Type: | ACTUARIAL ASSOCIATE | | | | laryngeal mask, cuffed; Size: 4; | | | | | Trauma: none; Placement Check: | | | | | bilateral chest rise, breath | | | | | sounds equal bilaterally, exhaled | | | | | CO2 detection device | | | +--------+ + + + | Periph | 03/26/18; 0700; Left; | 03/26/18 0700 by Araceli | 03/26/18 1035 by | | eral | Antecubital; [id number] | Keeley Oseguera RN | Shari Moreno RN | | IV | catheter system; 20 gauge; 1; | | | | | distraction, tolerated well, | | | | | appears comfortable; no longer | | | | | indicated, catheter/device | | | | | intact, removed per | | | | | policy/procedure; aniya GOLDSTEIN; | | | | | 03/26/18; 1035 | | | +--------+ + + + | Read | 03/26/18; 0803; Right; leg; | 03/26/18 0803 by | 01/06/19 1342 by | | only - | 01/06/19 (Completed/Removed by | Benjamin Lake RN | User Epic | | | Utility); 1342 (Completed/Removed | | | | Incisi | by Utility) | | | | on | | | | +--------+ + + + documented in this encounter Social History + +-------+ +--------+------+ | Tobacco [...] + + documented as of this encounter OR Notes Anesthesia Postprocedure Evaluation - Jarod Regan CRNA - 03/26/2018 8:41 AM PDTForma tting of this note might be different from the original. ANESTHESIA POSTANESTHESIA EVALUATION Alecia Gale 57 y.o. female 1960 [id number] Procedure(s) ARTHROSCOPY KNEE with Partial Lateral Meniscectomy (Right Knee) Cooperates? Yes Mental Status Performs simple tasks. Respiratory Satisfactory - Airway patent (self maintained). Cardiovascular Satisfactory - Blood pressure and heart rate acceptable Temperature Satisfactory Pain Satisfactory N/V Control Satisfactory Hydration Satisfactory - No signs of dehydration Complications None apparent, VS in PACU, BP 133/77, HR 57, RR 14, SpO2 98, temp 36.3 @0845 Vitals: 03/26/18 0649 BP: 107/51 Pulse: 65 Temp: 36.2 C (97.2 F) Resp: 16 SpO2: 100% Electronically signed by Jarod Regan CRNA 03/26/2018 8:44 CC [facility] 8 :47 AM PDTAnesthesia Preprocedure Evaluation - Jarod Regan CRNA - 03/26/2018 7:17 AM PDT ANESTHESIA PREANESTHESIA EVALUATION Alecia Gale 57 y.o. female 1960 [id number] Procedure(s): ARTHROSCOPY KNEE with Partial Lateral Meniscectomy (Right Knee) Medical history, anesthesia, medications, allergy, NPO status verified histories reviewed. Review of Systems / Med History Anesthesia History No anesthesia complications. Cardiovascular Negative except where noted below. Pulmonary Negative except where noted below. Neurology Negative except where noted below. Psychology Negative except where noted below. Renal approx one month ago. Pt primary said her numbers were improving at last visit. (+) acute renal failure Gastrointestinal/Hepatic Negative except where noted below. Endocrine Negative except where noted below. Physical Exam Airway MP II, TM >3 FB, Mouth opening >2 FB. Neck: full ROM, extends >30 degrees. Dental Leela ssly normal except where noted below.; (+) Age appropriate dentition. CV Rhythm regular. Rate normal. Pulm Clear to auscultation bilaterally. Anesthesia Plan ASA 2 Type: General. Induction: Intravenous. Potential problems: None anticipated. Monitors: Standard ASA monitors. Consent statement:Anesthetic plan, alternatives, risks and benefits discussed with patient. Risks discussed included (but were not limited to): pain, , heart problems, nausea, . Consenting person understands and agrees to proceed. Anesthesia consent form used. Electronically Signed by: Jarod Regan CRNA ESig date/time: 03/26/2018 7:17 documented in this encounter Plan of Treatment Not on filedocumented as of this encounter Visit Diagnoses Not on filedocumented in this encounter Administered Medications + +--------+ +------+------+------+ | Medication Order | MAR | Action | Dose | Rate | Site | | | Action | Date | | | | + +--------+ +------+------+------+ | ceFAZolin in dextrose (ANCEF) | Given | 03/26/20 | 2 g | | | | IVPB 2 g 2 g, Intravenous, | | 18 7:48 | | | | | Administer over 30 Minutes, Prior | | AM PDT | | | | | to Incision, Starting Wed | | | | | | | 03/26/18 at 0641, For 1 dose, Give | | | | | | | within one hour prior to | | | | | | | incision., Pre-op, Indications: | | | | | | | Surgical Prophylaxis | | | | | | + +--------+ +------+------+------+ +---+---+ | | | +---+---+ + +-------+ +------+---+---+ | dexamethasone (DECADRON) 4 | Given | 03/26/20 | 4 mg | | | | mg/mL injection Intravenous, | | 18 7:55 | | | | | PRN, Starting Sat03/26/18 at | | AM PDT | | | | | 0755, Anesthesia Intra-op | | | | | | + +-------+ +------+---+---+ +---+---+ | | | +---+---+ + +-------+ +--------+---+---+ | fentaNYL (PF) injection | Given | 03/26/20 | 25 mcg | | | | Intravenous, PRN, Pain, Starting | | 18 8:20 | | | | | Sat03/26/18 at 0759, Anesthesia | | AM PDT | | | | | Intra-op | | | | | | + +-------+ +--------+---+---+ +-------+ +--------+---+---+ | Given | 03/26/20 | 25 mcg | | | | | 18 7:59 | | | | | | AM PDT | | | | +-------+ +--------+---+---+ +---+---+ | | | +---+---+ + +---------+ +---+---+---+ | lactated ringers (LR) infusion | New Bag | 03/26/20 | | | | | Intravenous, CONTINUOUS PRN, | | 18 7:43 | | | | | Starting 03/26/18 at 0743, | | AM PDT | | | | | Anesthesia Intra-op | | | | | | + +---------+ +---+---+---+ +---+---+ | | | +---+---+ + +-------+ +-------+---+---+ | lidocaine 20 mg/mL IV syringe | Given | 03/26/20 | 60 mg | | | | Intravenous, PRN, Starting Wed | | 18 7:46 | | | | | 03/26/18 at 0746, Anesthesia | | AM PDT | | | | | Intra-op | | | | | | + +-------+ +-------+---+---+ +---+---+ | | | +---+---+ + +-------+ +------+---+---+ | midazolam (VERSED) 1 mg/mL | Given | 03/26/20 | 2 mg | | | | injection Intravenous, PRN, | | 18 7:45 | | | | | Anxiety, Starting Sat03/26/18 at | | AM PDT | | | | | 0745, Anesthesia Intra-op | | | | | | + +-------+ +------+---+---+ +---+---+ | | | +---+---+ + +-------+ +------+---+---+ | ondansetron (ZOFRAN) injection | Given | 03/26/20 | 4 mg | | | | Intravenous, PRN, Nausea, | | 18 8:15 | | | | | Vomiting, Starting 03/26/18 at | | AM PDT | | | | | 0815, Anesthesia Intra-op | | | | | | + +-------+ +------+---+---+ +---+---+ | | | +---+---+ + +-------+ +-------+---+---+ | propofol (DIPRIVAN) injection | Given | 03/26/20 | 30 mg | | | | Intravenous, PRN, Starting Sat | | 18 7:47 | | | | | 03/26/18 at 0746, Anesthesia | | AM PDT | | | | | Intra-op | | | | | | + +-------+ +-------+---+---+ +-------+ +--------+---+---+ | Given | 03/26/20 | 120 mg | | | | | 18 7:46 | | | | | | AM PDT | | | | +-------+ +--------+---+---+ +---+---+ | | | +---+---+ documented in this encounter"
--- OUTSIDE RECORDS SUMMARY | ~2020-04-13 | XMS | Encounter Summary ---
Demographics + + + | Address | [address] | | | [place] [address] | + + + | Home Phone | | + + + | Preferred Language | Unknown | + + + | Marital Status | | + + + | Shinto Affiliation | 1041 | + + + | Race | Unknown | + + + | Ethnic Group | Unknown | + + + Author + + + | Author | [facility] | | | and [place] | + + + | Organization | [facility] | | [...] Team Providers + +------+ + | Care Scales Inspector Name | Role | Phone | + +------+ + | Greg Chandler MD | PCP | | + +------+ + Encounter Details +--------+ + + + + | Date | Type | Department | Care Team | Description | +--------+ + + + + | 12/25/ | Abstract | [facility] | Jose Daniel Matthews Srinivas, | Bucket-handle tear | | 2018 | | [facility] | MD [address] | of lateral meniscus | | | | [address] | [place] | of left knee as | | | | [place], [place] | [address] | current injury, | | | | [address] | | subsequent encounter | | | | [phone] | | | +--------+ + + + [...] + + documented as of this encounter Progress Notes Jose Daniel Matthews MD - 12/25/2017 3:03 PM PDTThis patient was seen by Dr. Coleman with adva nced right knee OA and mechanical symptoms that led to ordering an MRI. The MRI was done 12/19/[address] [facility]) and the report was faxed to Dr. Coleman who is no longer in practice at [facility]. MRI suggests lateral compartment degeneration with [...] surgical ind ications. Jose Daniel Matthews 12/25/2017 documented in this encounter Plan of Treatment Not on filedocumented as of this encounter Visit Diagnoses + + | Diagnosis | + + | Bucket-handle tear of lateral meniscus of left knee as current injury, subsequent | | encounter | + + documented in this encounter"
--- OUTSIDE RECORDS SUMMARY | ~2020-04-13 | XMS | Encounter Summary ---
Demographics + + + | Address | [address] | | | [place] [address] | + + + | Home Phone | | + + + | Preferred Language | Unknown | + + + | Marital Status | | + + + | Gnosticist Affiliation | 1041 | + + + | Race | Unknown | + + + | Ethnic Group | Unknown | + + + Author + + + | Author | [facility] | | | and [place] | + + + | Organization | [facility] | | | [...] Team Providers + +------+ + | Care Grey Washer Name | Role | Phone | + +------+ + PCP | Unavailable | + +------+ + Encounter Details +--------+ + + + + | Date | Type | Department | Care Team | Description | +--------+ + + + + | 04// | Hospital | [facility] | Ayad Coleman, | | | 2016 | Encounter | [facility] | [address] | | | | | [address] | [place] [address] | | | | | [place] | [phone] | | | | | [address] | | | | | | [phone] | | | +--------+ + + + [...] | | | 13 | | | [id number] | | | | | | | [...]
--- OUTSIDE RECORDS SUMMARY | ~2020-04-13 | XMS | Encounter Summary ---
Demographics + + + | Address | [address] | | | [place] [address] | + + + | Home Phone | | + + + | Preferred Language | Unknown | + + + | Marital Status | | + + + | Evangelical Affiliation | 1041 | + + + | Race | Unknown | + + + | Ethnic Group | Unknown | + + + Author + + + | Author | [facility] | | | and [place] | + + + | Organization | [facility] | | | [...] Team Providers + +------+ + | Care Microsoft Dynamics Manager Architect Name | Role | Phone | + +------+ + PCP | Unavailable | + +------+ + Encounter Details +--------+ + + + + | Date | Type | Department | Care Team | Description | +--------+ + + + + | 02/ | Hospital | [facility] | Ayad Coleman, | | | 2016 | Encounter | [facility] | [address] | | | | | [address] | [place] [address] | | | | | [place] | [phone] | | | | | [address] | | | | | | [phone] | | | +--------+ + + + [...] Take by mouth. | | 0 | / | | | Products ([facility] | | | | 13 | | | [id number] | | | | | | | DS PO) | | | | | | + + + +---------+ + + documented as of this encounter Plan of Treatment Not on filedocumented as of this encounter Visit Diagnoses Not on filedocumented in this encounter"
--- OUTSIDE RECORDS SUMMARY | ~2020-04-13 | XMS | Encounter Summary ---
Demographics + + + | Address | [address] | | | [place] [address] | + + + | Home Phone | | + + + | Preferred Language | Unknown | + + + | Marital Status | | + + + | Quaker Affiliation | 1041 | + + + | Race | Unknown | + + + | Ethnic Group | Unknown | + + + Author + + + | Author | [facility] | | | and [place] | + + + | Organization | [facility] | | | and [place] | + + + | Address | Unknown | + + + | Phone | Unavailable | + + + Support + + +---------+ + | Name | Relationship | Address | Phone | + + +---------+ + | Brandon Gale | ECON | Unknown | | + + +---------+ + | Brijesh Capone | ECON | Unknown | | + + +---------+ + Care Team Providers + +------+ + | Care Protective Service Specialist Name | Role | Phone | + +------+ + PCP | Unavailable | + +------+ + Encounter Details +--------+ + + + + | Date | Type | Department | Care Team | Description | +--------+ + + + + | 06/28/ | Hospital | [facility] | Geraldine Greg Shelton, | | | 2016 | Encounter | H[facility] [address] | | | | | [address] | [place], [place] | | | | | [place], [place] | [address] | | | | | [address] | [phone] | | | | | [phone] | | | +--------+ + + + [...] | | | 13 | | | [id number] | | | | | | | [...] + +--------+ + + + | XR CERVICAL SPINE 4 | Routin | 06/28/2016 | | Results for this | | OR 5 VWS | e | 5:42 PM | | procedure are in the | | | | PDT | | results section. | + +--------+ + + + documented in this encounter Results XR Cervical Spine 4 or 5 Vws (06/28/2016 5:42 PM PDT) + + | Specimen | + + | | + + + + + | Narrative | Performed At | + + + | ORIGINAL CERVICAL SPINE FOUR-VIEW: CLINICAL | | | STATEMENT: Neck pain. REPORT: Disk space narrowing is noted at | | | C5-6 with mild endplate spurring. The atlantoaxial relationship is | | | maintained. On flexion and extension views no subluxation of the | | | cervical spine is noted. IMPRESSION: Disk degenerative changes | | | C5-6. No acute finding identified. Job #: | | | [id number] Read By: BRANDON CENTENO MD Released By: BRANDON CENTENO MD Date: 06/29/2016 20:40 | | + + + + ---------+ | Procedure Note | + ---------+ | [place], Rad Results In - 08/21/2017 11:32 PM PST ORIGINAL CERVICAL SPINE | | FOUR-VIEW: CLINICAL STATEMENT:Neck pain. REPORT:Disk space narrowing is noted at C5-6 | | with mild endplate spurring. The atlantoaxial relationship is maintained. On flexion | | and extension views no subluxation of the cervical spine is noted. IMPRESSION:Disk | | degenerative changes C5-6. No acute finding identified. Job #: [id number] | | Read By: BRANDON CENTENO MD Released By: BRANDON CENTENO, MDDate: 06/29/2016 20:40 | |Neck pain. | | | |REPORT: | |Disk space narrowing is noted at C5-6 with mild endplate spurring. The atlantoaxial relati onship is maintained. On flexion and extension views no subluxation of the cervical spine i s noted. | | | |IMPRESSION: | |Disk degenerative changes C5-6. No acute finding identified. | | | | | | | | | |Read By: BRANDON CENTENO MD | | | |Released By: BRANDON CENTENO MD | |Date: 06/29/2016 20:40 | | | | | + ---------+ documented in this encounter Visit Diagnoses Not on filedocumented in this encounter"
--- OUTSIDE RECORDS SUMMARY | ~2020-04-13 | XMS | Encounter Summary ---
Demographics + + + | Address | [address] | | | [place] [address] | + + + | Home Phone | | + + + | Preferred Language | Unknown | + + + | Marital Status | | + + + | Restoration Affiliation | 1041 | + + + | Race | Unknown | + + + | Ethnic Group | Unknown | + + + Author + + + | Author | [facility] | | | and [place] | + + + | Organization | [facility] | | | and [...] Team Providers + +------+ + | Care Chain Saw Operator Name | Role | Phone | + +------+ + | Greg Chandler MD | PCP | | + +------+ + Encounter Details +--------+ + + + + | Date | Type | Department | Care Team | Description | +--------+ + + + + | 11/21/ | Abstract | [facility] | Laura Beach, | | | 2018 | | [facility] | RN | | | | | [address] | | | | | | [place], [place] | | | | | | [address] | | | | | | [phone] | | | +--------+ + + + [...]
--- OUTSIDE RECORDS SUMMARY | ~2020-04-13 | XMS | Encounter Summary ---
Demographics + + + | Address | [address] | | | [place] [address] | + + + | Home Phone | | + + + | Preferred Language | Unknown | + + + | Marital Status | Single | + + + | Rastafari Affiliation | Unknown | + + + | Race | Unknown | + + + | Ethnic Group | Other Race | + + + Author + + + | Author | [facility] | + + + | Organization | [facility] | + + + | Address | Unknown | + + + | Phone | Unavailable | + + + Care Team Providers + +------+ + | Care Environmental Conservation Officer Name | Role | Phone | + [...] [address] | | | | | | [place], [place] | | | | | | [id number] | | | | | | | [...] [facility] | [address] | [place] [address] | | | DERMATOPATHOLOGY | [address] | | | + + + + + documented in this encounter Visit Diagnoses Not on filedocumented in this encounter"
--- OUTSIDE RECORDS SUMMARY | ~2020-04-13 | XMS | Encounter Summary ---
Demographics + + + | Address | [address] | | | [place] [address] | + + + | Home Phone | | + + + | Preferred Language | Unknown | + + + | Marital Status | | + + + | Tenriism Affiliation | [id number] | + + + | Race | Unknown | + + + | Ethnic Group | Unknown | + + + Author + + + | Author | [facility] | | | and [place] | + + + | Organization | [facility] | | [...] Team Providers + +------+ + | Care Engraving Press Operator Name | Role | Phone | [...] | | | | | | | CA ARTHRS | | | | | | [...] + | 03/26/ | Hospital | [facility] | Collin Guillen, | | | 2018 | Encounter | [facility] | DO [address] , | | | | | [address] [place] | [place], [place] | | | | | [place], [place] | [address] | | | | | [address] | [phone] | | | | | [phone] | | | +--------+ + + + [...] + + + | Blood Pressure | 119/41 | 03/26/2018 10:15 AM | | | | | PDT | | + + + + + | Pulse | 67 | 03/26/2018 10:15 AM | | | | | PDT | | + + + + + | Temperature | 36.3 C (97.3 F) | 03/26/2018 9:55 AM | | | | | PDT | | + + + + + | Respiratory Rate | 16 | 03/26/2018 10:15 AM | | | | | PDT | | + + + + + | Oxygen Saturation | 99% | 03/26/2018 10:15 AM | | | | | PDT | | + + + + + | Inhaled Oxygen | - | - | | | Concentration | | | | + + + + + | Weight | - | - | | + + + + + | Height | - | - | | + + + + + | Body Mass Index | - | - | | + + + + + documented in this encounter Discharge Instructions Instructions Collin Guillen, DO - 03/26/2018Formatting of this note might be different f rom the original. Discharge Instructions for Knee Arthroscopy You had kneearthroscopy. This surgical procedure uses small incisions to locate, identify , and treat problems inside the knee. These problems include loose bodies, meniscal tears, b one spurs, osteochondritis dissecans (OCD), and synovitis. Below are tips to help speed your recovery from surgery. Activity Never drive while taking opioid pain medicine. Remember to take pain medicines as directed; don t wait for the pain to get bad. And d on't drink alcohol while taking pain medicines. Weight bearing as tolerated on the operative extremity. Use crutches as needed. Range of motion of the operative knee is encouraged. Unless your doctor tells you otherwise, begin using the affected knee as much as you can [id number] after surgery. Slowly bend and straighten your affected leg as far as you can, unless your doctor tells you otherwise. Do this several times a day. Rest your knee by lying down and putting pillows under it for the micxc7ehre after s urgery. Keep your ankle elevated above the level of your heart. This helps keep swelling naga n. Make sure you work on straightening the knee periodically during these first few days po st surgery to avoid the development of a flexion contracture. Point and flex your foot, and rotate your ankle as much as possible during the first few weeks following surgery. Also, wiggle your toes as much as possible. Incision care Check your incision daily for redness, tenderness, or drainage starting post-op day #5. Don t be alarmed if there is some bruising, slight swelling of the knee, or a small am ount of blood on the bandage. Adjust the bandage or brace as needed. It should feel supportive on your knee, but not t oo tight. Don t soak your incision in water (no hot tubs, bathtubs, swimming pools) until your d octor says it s OK. Snhu1ufm(s)after your surgery to begin showering. Then shower as needed. Leave cur rent dressing on until post-op day #3. On post-op day #3, may get incisions wet in shower an d then pat dry. Begin daily dressing changes on post-op day #3 using dry gauze and overwrap with an PABLO bandage. Once your dressing is removed, follow your doctor s instructions for care of the wound . Use an ice pack, ICEMAN,or bag of frozen peas or something similar wrapped in a th in towel to reduce the swelling. Keep the foot elevated while you ice the knee. Apply the ic e pack [id number]; then remove it [id number]. Repeat as needed. Icing helps redu ce swelling. Other precautions Arrange your household to keep the items you need within reach. Remove throw rugs, electrical cords, and anything else that may cause you to fall. Use a cane, crutches, a walker, or handrails until your balance, flexibility, and streng th improve, and you can put weight on your leg. And remember to ask for help from others whe n you need it. Free up your hands so that you can use them to keep balance. Use a jean pack, apron, or pockets to carry things. Follow-up Make a follow-up appointment as directed by your doctor. Typical follow up is usually 10-1 4 days post surgery. When to seek medical attention Call 911 right awayif you have any of the following: Chest pain Shortness of breath Severe nausea Otherwise, call your doctor immediately if you have any of the following: Pain that is not relieved by medicine or rest Continued bleeding through the bandage Tingling, numbness, or coldness in your foot or leg Fever [id number](38.0C) or shaking chills Excessive swelling, increased redness, or any drainage around the incision Swelling, tenderness, or pain in your leg documented in this encounter Medications at Time of Discharge [...] | | | 13 | | | [id number] | | | | | | | [...] + + + +---------+ + + | aspirin (ASPIRIN | Take 1 tablet by | 28 | 0 | 03/26/20 | | | LOW DOSE) 81 MG | mouth Daily for 28 | tablet | | 18 | 8 | | tablet | days. | | | | | + + + +---------+ + + documented as of this encounter H&P Notes Collin Guillen, DO - 03/26/2018 7[facility] INTERIM HISTORY AND PHYSICAL UPDATE Pt. Name/Age/: Alecia Gale 57 y.o. 1960 Date of admission: 03/26/2018 The current H&P was reviewed. The patient was reexamined. Re-evaluation of the patient co nfirms the necessity for the scheduled procedure. Patient does understand the nature of her underlying osteoarthritis. This was discussed again this morning. She does have a displac ed meniscal fragment in the intercondylar notch which may be interfering with range of motio n. She will likely be heading down the road of the knee replacement at some point in the ne ar future. This arthroscopic procedure is meant to help alleviate the symptoms associated w ith the flip meniscal fragment. However the pain and swelling will likely persist due to he r arthritis. No change has occurred in the patient s condition since the H&P was complet ed less than 30 days ago. The risks of surgery, the proposed benefits and reasonable alterna tives to surgery were discussed with the patient. Alecia Gale indicates that she understand s the risks, benefits and alternatives and wants to proceed with surgery as planned. I will proceed with surgery at her request. Electronically signed by: Collin Guillen, 03/26/2018 7:32 CC [facility] EpifanioltYoan woods PA - 03/04/2018 4:30 PM PDT Date of Service: 03/04/2018 Provider: Yoan Morgan Pt. Name/Age/: Alecia Gale 57 y.o. 1960 Date of Evalutaion: 03/04/2018 Chief Complaint Patient presents with Pre-op Exam R Knee Arth DOS:03/26/2018 Orthopedic Clinic Visit Chief complaint: Right knee arthroscopy preop examination. HISTORY OF PRESENT ILLNESS Alecia Gale is a 57 y.o. female presents for right knee arthroscopy preop examination. Alecia reports right knee symptoms began about 7+ months ago. She does not recall a specific inciting event. She reports pain and locking in the lateral knee, occurring most frequently while the knee is flexed, especially when horseback. She will have to manipulate the knee w ith her hand and rotate the tibia to get the knee moving again. The locking has become more frequent and now occurs multiple times throughout each day. She denies instability or swelli ng. She's had similar symptoms in the contralateral knee that was treated successfully wit h partial meniscectomy. She saw Dr. Coleman in our clinic in October 2017, and he ordered MRI for further evaluation. At visit 12/31/17, we discussed treatment options and agreed to proc eed with right knee diagnostic and operative arthroscopy with partial lateral meniscectomy. Today she reports pain in the right knee is 4/10. No significant changes in right knee sym ptoms since last visit. However, she experienced an episode of acute kidney injury on 02/09/18 (GFR of 15 on emergen cy room visit). Evaluation found including CT scan found no anatomical abnormalities. Neph rology is unsure what the cause may have been, but her renal function has recovered fully. Nephrology has advised Alecia to use no NSAIDs for analgesia. PAST MEDICAL HISTORY Past Medical History: Diagnosis Date Kidney failure 2018 PAST SURGICAL HISTORY Past Surgical History: Procedure [...] mouth as needed. Misc Natural Products ([facility] NDQGMV-LPYIOYOBC-GAN DS PO) Take by mouth. No current facility-administered medications for this visit. ALLERGIES Allergies Allergen Reactions Acetaminophen Sensitivity Ibuprofen Sensitivity SOCIAL HISTORY Social History Social History Marital [...] blood in the urine. Physical exam: BP 116/70 | Pulse 77 | Ht 1.676 m (5' 6") | Wt 61.2 kg (135 lb) | SpO2 100% | BMI 21.7 9 kg/m BMI: Body mass index is 21.79 [...] rate is normal. Musculoskeletal: Right knee: No ecchymosis, erythema, or warmth to touch. Slight effusion. Skin intact. TTP about the anterolateral joint line. Crepitus on motion noted. Range of brenda on limited to 0-130. Episode of right knee locking with manual recovery of range of motio n and witnessed. Distal motor function and sensation to light touch intact. Pedal pulse 1+ . Imaging: MRI of right knee performed at [place], [place] on 12/25/17 demonstra roxanna complex tear of lateral meniscus with displaced meniscal fragment into the intracondylar notch. Moderate degenerative changes also appreciated. See chart for copy of radiology report. Narrative EXAMINATION: XR KNEE RIGHT 4 + VW; XR KNEE LEFT 4 + VW HISTORY: knee pain COMPARISON STUDY: MRI left knee 10/21/2015 FINDINGS: Right knee: Lateral knee joint narrowing is present with associated hypertrophic bone forma tion and sclerosis. Mild medial knee narrowing. Left knee: Lateral knee joint narrowing with mild hypertrophic bone formation. Mild hyper trophic bone formation narrowing at the medial knee. No acute bone finding identified. . Impression IMPRESSION: 1. No acute finding. 2. 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 Dictated by: Darrion Sapp Plain film radiographs of the right knee above were reviewed by me and discussed with Dr. Aliza kim. All pertinent imaging results were discussed with patient on today's visit. Laboratory: No results found for this or any previous visit. Assessment 1. Right knee complex lateral meniscus tear Plan: We discussed options going forward and Alecia still wishes to proceed with surgery. Discusse d risks, benefits, and alternatives, as well as typical perioperative course. Alecia was prov ided the opportunity to ask questions and have them answered to her satisfaction. She wishe s to proceed with surgery as scheduled. Consent was updated. Call or return to clinic with any questions or concerns. Electronically signed by: Yoan Morgan PA-C 03/04/2018 17:42 CC: Greg Chandler MD No ref. provider found Note: Part of this report was transcribed using voice recognition software. Every effort wa s made to ensure accuracy. However, inadvertent computerized pre press proofer errors may be pre sent. documented in this encounter Miscellaneous Notes Op Note - Collin Guillen DO - 03/26/2018 7:40 AM PDT Date of Service: 03/26/2018 Provider: Collin Guillen Pt. Name/Age/: Alecia Harley Coote 57 y.o. 1960 Brief operative note: Preoperative diagnosis: Right knee complex lateral meniscus tear with tricompartmental dege nerative joint disease Postoperative diagnosis: Same Procedure: Right Knee diagnostic and operative arthroscopy with partial lateral meniscectom y and chondroplasty of the patella as well as well as lateral femoral condyle and medial pli ca excision Surgeon: Collin Guillen D.O. Asst.: None Anesthesia: Gen. Estimated blood loss: Minimal Fluids: 500 cc s Lactated Ringer s Preoperative antibiotic: Ancef 2 g IV Complications: None Implants: None Intraoperative findings: Tricompartmental degenerative joint disease with complex flipped lateral meniscus tear in the intercondylar notch Disposition: Stable to PACU Operative indications: Patient had experienced pain and discomfort in the right knee. MRI was performed demonstra ting a complex lateral meniscus tear with fragment flipped into the notch of the knee. It w as evident that she had degenerative changes on MRI and x-ray. We discussed conservative ve rsus operative measures. Due to the catching locking popping in the severity of this with t he flipped meniscal fragment into the notch of the knee we discussed arthroscopic partial la teral meniscectomy and all other indicated procedures. Patient understands that she does montes ve degenerative joint disease of the knee. This will ultimately be addressed with a total k nee arthroplasty. However until then she is hoping to receive symptomatic relief for as merna g as possible prior to undergoing joint replacement surgery. Risks benefits and alternatives of surgical intervention [...] wishes to proceed with surgical interventi on. Operative narrative: Patient was seen in the preoperative holding area H&P was updated and surgical site was sig godfrey. Patient was transferred to the operating room, transferred from hospital bed to the vaca rgical table. A general anesthetic was administered per anesthesia protocol. Airway was se cured per Anesthesia with an LMA. A thigh-high tourniquet was placed and lateral post was p laced. Right Lower extremity was prepped and draped in sterile fashion. Timeout was perfor med identifying the correct patient procedure and extremity. Esmarch was used to exsanguina te the right lower extremity and tourniquet was inflated to 250 mmHg. Standard anteromedial and anterolateral portals were then made. Trocar was placed into the suprapatellar pouch. Sterile saline was used to inflate the joint. Diagnostic portion of the exam was then performed. Medial gutter: Was free of debris and no loose bodies were appreciated within the medial gu tter. Lateral gutter: Was visualized and there were no loose bodies appreciated within the later al gutter. The popliteus tendon was noted to be intact. There was an osteophyte demonstrat ed off of the lateral femoral condyle. Attention was then directed to the patellofemoral joint. Status of the cartilage was grade 3 chondromalacia of the patellofemoral joint. An unstable chondral flap was debrided gentl y with standard chondroplasty technique off of the medial facet of the patella. There was o steophyte formation appreciated off the inferior border of the patella as well as the medial border of the medial femoral condyle. Patient was noted to have appropriate tracking of th e patella within the trochlea. Next the medial compartment was entered. Medial meniscus was then assessed. Meniscus was intact. Cartilage within the medial joint space was assessed. Diffuse grade 2 chondromalac ia was appreciated within the medial joint space. The notch was then entered. ACL and PCL ligaments were then assessed. There was a large a nterior horn meniscal flap constituting over 50% of the medial meniscus flapped into the int ercondylar notch. This was debrided with a shaver sector and meniscal biter to remove this from impinging within the notch of the femur. ACL and PCL were then able to be assessed and noted to be intact. Following this the lateral joint space was entered. The lateral meniscus was assessed. Fo llowing resection of the anterior horn flap tear there was significant tearing within the mariano dy and posterior horn of the lateral meniscus. There was instability appreciated within the main fragment of the body lateral meniscus and this was resected with a shaver sector. The old posterior horn of lateral meniscus was unstable and debrided with accommodation a menis fritz biter and shaver sector. Essentially a subtotal lateral meniscectomy was performed due to the instability and tearing of the lateral meniscus. Cartilage within the lateral joint space was assessed. Patient was noted to have grade 4 kissing lesion off of the lateral fem oral condyle and lateral tibial plateau. This measured on the lateral femoral condyle appro ximately 2.5 cm x 1.5 cm in diameter and 1 cm in diameter on the lateral tibial plateau. Final images were then obtained. Arthroscope was removed from the knee. Tourniquet was br ought down. Tourniquet time was 21 minutes. Portal sites were then closed with 4-0 nylon in an interrupted portal stitch fashion. Adenike incisional subcutaneous tissue was injected with 10 cc of 0.5% ropivacaine plain. 20 cc of 0.5% ropivacaine plain was then injected within the knee joint. A sterile dressing wa s then applied to the knee. Drapes were removed. Anesthesia was reversed per anesthesia pr otocol. LMA Was then removed. Patient was then transferred from the surgical table to the hospital bed to the PACU in stable medical condition. Patient tolerated the procedure very well without any major complications. rief Op Note - Collin Friedman DO - 03/26/2018 7:40 AM PDT Brief Operative Note Alecia Harley Shahla 57 y.o. female 1960 [id number] Proc. Date 03/26/2018 Preop Dx Right knee lateral meniscus tear with tricompartmental degenerative joint disease Postop Dx same Procedure ARTHROSCOPY KNEE with Partial Lateral Meniscectomy (Right) and chondroplasty of the patella as well as lateral femoral condyle with medial plica excision Anesthesia Gen. with local Surgeon Collin Guillen DO - Primary Physician Scribe EBL Minimal Findings Findings consistent with scheduled procedure. No other abnormalities found. Complications none Specimens * No specimens in log * Drains Electronically signed by: Collin Guillen DO 03/26/2018 7:40 CC [facility] 8: 44 AM PDTdocumented in this encounter Plan of Treatment Not on filedocumented as of this encounter Procedures + +--------+ + + + | Procedure Name | Priori | Date/Time | Associated Diagnosis | Comments | | | ty | | | | + +--------+ + + + | ARTHROSCOPY KNEE | | 03/26/2018 | Unknown | | | | | 7:42 AM | | | | | | PDT | | | + +--------+ + + + documented in this encounter Visit Diagnoses Not on filedocumented in this encounter Administered Medications + +--------+---------+------+------+------+ | Medication Order | MAR | Action | Dose | Rate | Site | | | Action | Date | | | | + +--------+---------+------+------+------+ + +---+ | albuterol 2.5 mg/3 mL nebulizer | | | solution 2.5 mg 2.5 mg, | | | Nebulization, ONCE PRN, Wheezing, | | | Starting Sat03/26/18 at 0831, | | | For 1 dose, Notify anesthesia if | | | patient is wheezing and does not | | | have a history of asthma or COPD | | | or current smoking., | | | Recovery/Phase I | | + +---+ | | | + +---+ | benzocaine-menthol (CEPACOL) | | | lozenge 1 lozenge 1 lozenge, | | | Buccal, EVERY 2 HOURS PRN, Sore | | | Throat, Starting Sat03/26/18 at | | | 0956, Maxiumum 12 lozenges per 24 | | | hours., | | + +---+ | | | + +---+ | diphenhydrAMINE (BENADRYL) 12.5 | | | mg/5 mL liquid 25 mg 25 mg, | | | Oral, EVERY 4 HOURS PRN, Itching, | | | Starting Sat03/26/18 at 0938, | | | Oral route is preferred., | | | Post-op/Phase II | | + +---+ | | | + +---+ | diphenhydrAMINE (BENADRYL) | | | capsule 25 mg 25 mg, Oral, EVERY | | | 4 HOURS PRN, Itching, Starting | | | 03/26/18 at 0938, Oral route | | | is preferred., Post-op/Phase II | | + +---+ | | | + +---+ | diphenhydrAMINE (BENADRYL) | | | injection 12.5 mg 12.5 mg, | | | Intravenous, EVERY 4 HOURS PRN, | | | Itching, Starting Sat03/26/18 at | | | 0938, Oral route is preferred., | | | Post-op/Phase II | | + +---+ | | | + +---+ + +-------+ +--------+---+---+ | fentaNYL (PF) injection 25-50 | Given | 03/26/20 | 50 mcg | | | | mcg 25-50 mcg, Intravenous, | | 18 8:40 | | | | | EVERY 5 MIN PRN, Pain, Starting | | AM PDT | | | | | Sat03/26/18 at 0831, Maximum | | | | | | | total dose 250 mcg. PACU IV | | | | | | | Narcotic Priority: Only use | | | | | | | fentanyl for immediate post-op | | | | | | | pain (one dose) or breakthrough | | | | | | | pain when any other IV narcotics | | | | | | | ordered have been ineffective (if | | | | | | | ordered). If both morphine and | | | | | | | hydromorphone are ordered, use | | | | | | | morphine first, and use | | | | | | | hydromorphone if morphine | | | | | | | ineffective., Recovery/Phase I | | | | | | + +-------+ +--------+---+---+ + +---+ | | | + +---+ | HYDROmorphone (DILAUDID) | | | injection 0.2-1 mg 0.2-1 mg, | | | Intravenous, EVERY 5 MIN PRN, | | | Pain, Starting Sat03/26/18 at | | | 0831, Maximum total dose 4 mg. | | | PACU IV Narcotic Priority: Only | | | use fentanyl for immediate | | | post-op pain (one dose) or | | | breakthrough pain when any other | | | IV narcotics ordered have been | | | ineffective (if ordered). If | | | both morphine and hydromorphone | | | are ordered, use morphine first, | | | and use hydromorphone if morphine | | | ineffective., Recovery/Phase I | | + +---+ | | | + +---+ | lactated ringers (LR) infusion | | | at 10-100 mL/hr, Intravenous, | | | CONTINUOUS, Starting Sat03/26/18 | | | at 1000, TKO, Pre-op | | + +---+ | | | + +---+ | meperidine (DEMEROL) injection | | | 12.5-25 mg 12.5-25 mg, | | | Intravenous, PRN, Shivering, | | | Starting Sat03/26/18 at 0831, For | | | 2 doses, May Repeat once in 5 | | | min., Recovery/Phase I | | + +---+ | | | + +---+ | ondansetron (ZOFRAN) injection | | | 4 mg 4 mg, Intravenous, ONCE | | | PRN, Nausea, Starting Sat03/26/18 | | | at 0831, For 1 dose, | | | Recovery/Phase I | | + +---+ | | | + +---+ + +-------+ +-------+---+---+ | oxyCODONE (ROXICODONE) tablet | Given | 03/26/20 | 10 mg | | | | 5-10 mg 5-10 mg, Oral, EVERY 3 | | 18 9:47 | | | | | HOURS PRN, Pain, 5MG PRN PAIN | | AM PDT | | | | | 3-5/10; FOR PAIN >5/10 GIVE 10MG, | | | | | | | Starting Sat03/26/18 at 0938, If | | | | | | | ineffective or not tolerated, | | | | | | | contact prescriber., | | | | | | | Post-op/Phase II | | | | | | + +-------+ +-------+---+---+ + +---+ | | | + +---+ | promethazine (PHENERGAN) (IV | | | ONLY) injection 6.25-12.5 mg | | | 6.25-12.5 mg, Intravenous, EVERY | | | 15 MIN PRN, Nausea, Vomiting, Max | | | 25 mg, Starting Sat03/26/18 at | | | 0831, TAKE PRECAUTIONS WHEN | | | ADMINISTERING Dilute to 10-20mL | | | with NS. Give over 2-3 minutes | | | into large vein. Use ondansetron | | | first if both are ordered., | | | Recovery/Phase I | | + +---+ | | | + +---+ documented in this encounter
--- OUTSIDE RECORDS SUMMARY | ~2020-04-13 | XMS | Encounter Summary ---
Demographics + + + | Address | [address] | | | [place] [address] | + + + | Home Phone | | + + + | Preferred Language | Unknown | + + + | Marital Status | | + + + | Episcopal Affiliation | 1041 | + + + [...] Team Providers + +------+ + | Care Senior Erp Consultant Name | Role | Phone | + [...] | | | | | | | AR ARTHRS | | | | | | | KNE SURG | | | | | | | W/MENISCECTO | | | | | | | MY MED/LAT | | | | | | | W/SHVG | | | +--------+--------+ + + + + Encounter Details +--------+---------+ + + + | Date | Type | Department | Care Team | Description | +--------+---------+ + + + | 03/26/ | Surgery | [facility] | Collin Guillen, | ARTHROSCOPY KNEE | | 2017 | | [facility] | DO [address] , | with Partial Lateral | | | | [address] | [place], [place] | Meniscectomy | | | | [place], [place] | [address] | | | | | [address] | [phone] | | | | | [phone] | | | +--------+---------+ + + + [...] + + + | Blood Pressure | 122/64 | 03/26/2018 9:00 AM | | | | | PDT | | + + + + + | Pulse | 62 | 03/26/2018 9:00 AM | | | | | PDT | | + + + + + | Temperature | 36.4 C (97.5 F) | 03/26/2018 8:27 AM | | | | | PDT | | + + + + + | Respiratory Rate | 17 | 03/26/2018 9:00 AM | | | | | PDT | | + + + + + | Oxygen Saturation | 97% | 03/26/2018 9:00 AM | | | | | PDT [...] this encounter Discharge Instructions Instructions Collin Guillen, - 03/26/2018Formatting of this note might be [...] affected knee as much as you can [id number] after surgery. Slowly bend and straighten your affected leg as far as you can, unless your doctor tells you otherwise. Do this several times a day. Rest your knee by lying down and putting pillows under it for the [id number] after s urgery. Keep your ankle elevated [...] your d octor says it s OK. Dzzu1hhu(s)after your surgery to begin showering. Then shower [...] the knee. Apply the ic e pack [id number]; then remove it [id number]. Repeat as needed. Icing helps redu ce [...] coldness in your foot or leg Fever ybpyu406.4F(38.0C) or shaking chills Excessive swelling, increased redness, [...] | | | 13 | | | [id number] | | | | | | | [...] Collin Guillen, DO - 03/26/2018 7:32 [facility] AND PHYSICAL [...] signed by: Collin Guillen, 03/26/2018 7:32 [facility] olton, UMANG rAce - 03/04/2018 4:30 PM PDT Date of [...] mouth as needed. Misc Natural Products ([facility] AYTGRC-[id number]-JFC DS PO) Take by mouth. No current [...] Imaging: MRI of right knee performed at [place], [place] on 12/25/17 demonstra roxanna complex tear [...] made to ensure accuracy. However, inadvertent computerized help desk associate errors may be pre sent. documented in this encounter Miscellaneous Notes Op Note - Collin Guillen DO - 03/26/2018 7:40 AM PDT Date of Service: 03/26/2018 Provider: Collin Guillen Pt. Name/Age/: Alecia Gale 57 y.o. 1960 Brief operative note: Preoperative [...] 7:40 AM PDT Brief Operative Note Alecia Jimenezzaira 57 y.o. female 1960 [id number] Proc. Date 03/26/2018 Preop Dx Right knee lateral meniscus tear with tricompartmental degenerative joint disease Postop Dx same Procedure ARTHROSCOPY KNEE with Partial Lateral Meniscectomy (Right) and chondroplasty of the patella as well as lateral femoral condyle with medial plica excision Anesthesia Gen. with local Surgeon Collin Guillen DO - Primary Marine Railway Operator EBL Minimal Findings Findings consistent with scheduled procedure. No other abnormalities found. Complications none Specimens * No specimens in log * Drains Electronically signed by: Collin Guillen DO 03/26/2018 7:40 [facility] 8: 44 AM PDTdocumented in this encounter [...] ONCE PRN, Wheezing, | | | Starting 03/26/18 at 0831, | | | For 1 [...] HOURS PRN, Itching, Starting | | | Sat03/26/18 at 0938, Oral route | | | [...] | | | + +---+ + +-------+ +------+---+ + | EPINEPHrine 1 mg/mL injection | Given | 03/26/20 | 6 mg | | Knee-Rig | | PRN, Starting Sat03/26/18 at | | 18 8:12 | | | ht | | 0812, Intra-op | | AM PDT | | | | + +-------+ +------+---+ + +---+---+ | | | +---+---+ + +-------+ [...] | | | + +---+ + +-------+ +--------+---+ + | ropivacaine (NAROPIN) 5 mg/mL | Given | 03/26/20 | 30 mLs | | Surgical | | (0.5%) injection PRN, Starting | | 18 8:13 | | | Site | | 03/26/18 at 0813, Intra-op | | AM PDT | | | | + +-------+ +--------+---+ + +---+---+ | | | +---+---+ documented in this encounter
--- OUTSIDE RECORDS SUMMARY | ~2020-04-13 | XMS | Encounter Summary ---
Demographics + + + | Address | [address] | | | [place] [address] | + + + | Home Phone | | + + + | Preferred Language | Unknown | + + + | Marital Status | | + + + | Mandaeism Affiliation | 1041 | + + + | Race | Unknown | + + + | Ethnic Group | Unknown | + + + Author + + + | Author | [facility] | | | and [place] | + + + | Organization | [facility] | | | and [...] Team Providers + +------+ + | Care Waste Duster Name | Role | Phone | + +------+ + | Greg Chandler MD | PCP | | + +------+ + Encounter Details +--------+ + + + + | Date | Type | Department | Care Team | Description | +--------+ + + + + | 12/12/ | Orders Only | [facility] | Conversion | | | 2018 | | NEPHROLOGY JULIA | Transaction, | | | | | [address] [place] | Provider Unknown | | | | | [address] [facility], [place] | | | | | | [address] | (Fax) | | | | | [phone] | | | +--------+ + + + [...] | + +--------+ + + + | EXTERNAL LAB: CBC | Routin | 12/12/2017 | | Results for this | | | e | 12:00 AM | | procedure are in the | | | | PST | | results section. | + +--------+ + + + | LIPID PANEL | Routin | 12/12/2017 | | Results for this | | | e | 12:00 AM | | procedure are in the | | | | PST | | results section. | + +--------+ + + + | TSH | Routin | 12/12/2017 | | Results for this | | | e | 12:00 AM | | procedure are in the | | | | PST | | results section. | + +--------+ + + + | COMPREHENSIVE | Routin | 12/12/2017 | | Results for this | | METABOLIC PANEL | e | 12:00 AM | | procedure are in the | | | | PST | | results section. | + +--------+ + + + documented in this encounter Results External Lab: CBC (12/12/2017 12:00 AM PST) + +-------+ + + + | Component | Value | Ref Range | Performed | Pathologist | | | | | At | Signature | + +-------+ + + + | WBC | 5.9 | 4.5 - 11.0 10 | EXTERNAL | | | | | | LAB | | + +-------+ + + + | Red Blood | 4.86 | 3.8 - 5.1 10 | EXTERNAL | | | Cells | | | LAB | | | Counted | | | | | + +-------+ + + + | Hemoglobin | 14.8 | 12 - 16 g/dL | EXTERNAL | | | | | | LAB | | + +-------+ + + + | Hematocrit, | 43.6 | 35 - 45 % | EXTERNAL | | | POC | | | LAB | | + +-------+ + + + | MCV | 89.8 | 81 - 99 fL | EXTERNAL | | | | | | LAB | | + +-------+ + + + | MCH | 30 | 27 - 33 pg | EXTERNAL | | | | | | LAB | | + +-------+ + + + | MCHC | 34 | 30 - 36 g/dL | EXTERNAL | | | | | | LAB | | + +-------+ + + + | Platelet | 215 | 140 - 440 K/ L | EXTERNAL | | | Count | | | LAB | | | Plasma | | | | | + +-------+ + + + | RDW-CV | 13.6 | 10.5 - 15.0 % | EXTERNAL | | | | | | LAB | | + +-------+ + + + | MPV | | fL | EXTERNAL | | | | | | LAB | | + +-------+ + + + | Differentia | | | EXTERNAL | | | l Type | | | LAB | | + +-------+ + + + | % Segmented | | % | EXTERNAL | | | | | | LAB | | | Neutrophils | | | | | + +-------+ + + + | % | | % | EXTERNAL | | | Lymphocytes | | | LAB | | + +-------+ + + + | % Monocytes | | % | EXTERNAL | | | | | | LAB | | + +-------+ + + + | % | | % | EXTERNAL | | | Eosinophils | | | LAB | | + +-------+ + + + | % Basophils | | % | EXTERNAL | | | | | | LAB | | + +-------+ + + + | Absolute | | / L | EXTERNAL | | | Segmented | | | LAB | | | Neutrophils | | | | | + +-------+ + + + | Absolute | | / L | EXTERNAL | | | Lymphocytes | | | LAB | | + +-------+ + + + | Absolute | | / L | EXTERNAL | | | Monocytes | | | LAB | | + +-------+ + + + | Absolute | | / L | EXTERNAL | | | Eosinophils | | | LAB | | + +-------+ + + + | Absolute | | / L | EXTERNAL | | | Basophils | | | LAB | | + +-------+ + + + + + | Specimen | + + | Blood specimen | | (specimen) | + + + +---------+ + + | Performing | Address | City/State/Zipcode | Phone Number | | Organization | | | | + +---------+ + + | EXTERNAL LAB | | | | + +---------+ + + TSH (12/12/2017 12:00 AM PST) + +-------+ + + + | Component | Value | Ref Range | Performed | Pathologist | | | | | At | Signature | + +-------+ + + + | TSH | 3.81 | 0.27 - 4.20 | EXTERNAL | | | | | uIU/mL | LAB | | + +-------+ + + + + + | Specimen | + + | Blood specimen | | (specimen) | + + + +---------+ + + | Performing | Address | City/State/Zipcode | Phone Number | | Organization | | | | + +---------+ + + | EXTERNAL LAB | | | | + +---------+ + + Lipid Panel (12/12/2017 12:00 AM PST) + +-------+ + + + | Component | Value | Ref Range | Performed | Pathologist | | | | | At | Signature | + +-------+ + + + | Cholesterol | 184 | mg/dL | EXTERNAL | | | | | | LAB | | + +-------+ + + + | Triglycerid | 120 | 30 - 150 mg/dL | EXTERNAL | | | es | | | LAB | | + +-------+ + + + | HDL | 84 | mg/dl | EXTERNAL | | | | | | LAB | | + +-------+ + + + | LDL, | 76 | mg/dL | EXTERNAL | | | Calculated | | | LAB | | + +-------+ + + + | LDl/HDL | | | EXTERNAL | | | Ratio | | | LAB | | + +-------+ + + + | Chol/HDL | 2.2 | | EXTERNAL | | | Ratio | | | LAB | | + +-------+ + + + | VLDL | 24 | 4 - 40 mg/dL | EXTERNAL | | | | | | LAB | | + +-------+ + + + | Non HDL | 100 | | EXTERNAL | | | Chol. | | | LAB | | | (LDL+VLDL) | | | | | + +-------+ + + + + + | Specimen | + + | Blood specimen | | (specimen) | + + + +---------+ + + | Performing | Address | City/State/Zipcode | Phone Number | | Organization | | | | + +---------+ + + | EXTERNAL LAB | | | | + +---------+ + + Comprehensive Metabolic Panel (12/12/2017 12:00 AM PST) + +---------+ + + + | Component | Value | Ref Range | Performed | Pathologist | | | | | At | Signature | + +---------+ + + + | Glucose, | 74 | 70 - 100 mg/dL | EXTERNAL | | | Fasting | | | LAB | | + +---------+ + + + | BUN | 17 | 6 - 23 mg/dL | EXTERNAL | | | | | | LAB | | + +---------+ + + + | Creatinine | 1.0 | 0.7 - 1.33 | EXTERNAL | | | | | mg/dL | LAB | | + +---------+ + + + | BUN/Creatin | 17 | 6.0 - 28.6 | EXTERNAL | | | ine Ratio | | | LAB | | + +---------+ + + + | Calcium | 9.6 | 8.4 - 10.2 | EXTERNAL | | | | | mg/dL | LAB | | + +---------+ + + + | Protein, | 6.9 | 6.0 - 8.0 g/dL | EXTERNAL | | | Total | | | LAB | | + +---------+ + + + | Albumin | 4.5 | 3.5 - 5.0 | EXTERNAL | | | | | | LAB | | + +---------+ + + + | Globulin | 2.4 | 1.8 - 3.5 | EXTERNAL | | | | | | LAB | | + +---------+ + + + | A/G Ratio | 1.9 | 1.1 - 2.4 | EXTERNAL | | | | | | LAB | | + +---------+ + + + | Bilirubin | 0.7 | 0.0 - 1.2 mg/dL | EXTERNAL | | | Total | | | LAB | | + +---------+ + + + | ALP, | 142 (A) | 31 - 130 | EXTERNAL | | | External | | | LAB | | + +---------+ + + + | ALT | 27 | 7 - 52 U/L | EXTERNAL | | | | | | LAB | | + +---------+ + + + | AST | 21 | 13 - 39 U/L | EXTERNAL | | | | | | LAB | | + +---------+ + + + | Na | 141 | 132 - 143 | EXTERNAL | | | | | mmol/L | LAB | | + +---------+ + + + | K | 3.7 | 3.6 - 5.1 | EXTERNAL | | | | | mmol/L | LAB | | + +---------+ + + + | Cl | 103 | 95 - 112 mmol/L | EXTERNAL | | | | | | LAB | | + +---------+ + + + | CO2 | 24 | 19 - 31 mmol/L | EXTERNAL | | | | | | LAB | | + +---------+ + + + | Anion Gap | 17.7 | 7 - 21 mmol/L | EXTERNAL | | | | | | LAB | | + +---------+ + + + | Estimated | 57 | mg/dL | EXTERNAL | | | GFR [...]
--- OUTSIDE RECORDS SUMMARY | ~2020-04-13 | XMS | Encounter Summary ---
Demographics + + + | Address | [address] | | | [place] [address] | + + + | Home Phone | | + + + | Preferred Language | Unknown | + + + | Marital Status | | + + + | Orthodox Affiliation | 1041 | + + + | Race | Unknown | + + + | Ethnic Group | Unknown | + + + Author + + + | Author | [facility] | | | and [place] | + + + | Organization | [facility] | | | [...] Team Providers + +------+ + | Care Procedures Analyst Name | Role | Phone | + +------+ + | Greg Chandler MD | PCP | | + +------+ + Reason for Visit + + + | Reason | Comments | + + + | Pre-op Exam | R Knee Arth DOS:03/26/2018 | + + + Encounter Details +--------+---------+ + + + | Date | Type | Department | Care Team | Description | +--------+---------+ + + + | 03/04/ | Office | [facility] | Yoan Morgan | Complex tear of | | 2018 | Visit | [facility] | BINTA Espino | lateral meniscus of | | | | [address] [place] | | right knee as | | | | [place] | | current injury, | | | | [address] | | subsequent encounter | | | | [phone] | | (Primary Dx) | +--------+---------+ + [...] + + + | Blood Pressure | 116/70 | 03/04/2018 4:27 PM | | | | | PDT | | + + + + + | Pulse | 77 | 03/04/2018 4:27 PM | | | | | PDT | | + + + + + | Temperature | - | - | | + + + + + | Respiratory Rate | - | - | | + + + + + | Oxygen Saturation | 100% | 03/04/2018 4:27 PM | | | | | PDT | | + + + + + | Inhaled Oxygen | - | - | | | Concentration | | | | + + + + + | Weight | 61.2 kg (135 lb) | 03/04/2018 4:27 PM | | | | | PDT | | + + + + + | Height | 167.6 cm (5' 6") | 03/04/2018 4:27 PM | | | | | PDT | | + + + + + | Body Mass Index | 21.79 | 03/04/2018 4:27 PM | | | | | PDT | | + + + + + documented in this encounter Progress Notes Yoan Morgan PA - 03/04/2018 4:30 PM PDT Date [...] Past Medical History: Diagnosis Date Kidney failure 2017 PAST SURGICAL HISTORY Past Surgical History: Procedure [...] mouth as needed. Misc Natural Products ([facility] BXGZLE-HQVSTVAYA-NWL DS PO) Take by mouth. No current [...] Imaging: MRI of right knee performed at [place], [place] on 12/25/17 demonstra roxanna complex tear [...] made to ensure accuracy. However, inadvertent computerized jigman errors may be pre sent. documented in this encounter Plan of Treatment Not on filedocumented as of this encounter Visit Diagnoses + + | Diagnosis | + + | Complex tear of lateral meniscus of right knee as current injury, subsequent encounter | | - Primary | + + documented in this encounter
--- OUTSIDE RECORDS SUMMARY | ~2020-04-13 | XMS | Encounter Summary ---
Demographics + + + | Address | [address] | | | [place] [address] | + + + | Home Phone | | + + + | Preferred Language | Unknown | + + + | Marital Status | | + + + | Confucianism Affiliation | 1041 | + + + | Race | Unknown | + + + | Ethnic Group | Unknown | + + + Author + + + | Author | [facility] | | | and [place] | + + + | Organization | [facility] | | | [...] Team Providers + +------+ + | Care Cab Station Attendant Name | Role | Phone | + +------+ + PCP | Unavailable | + +------+ + Encounter Details +--------+ + + + + | Date | Type | Department | Care Team | Description | +--------+ + + + + | 10/26/ | Hospital | [facility] | Ayad Coleman, | | | 2016 | Encounter | [facility] | [address] | | | | | [address] | [place] [address] | | | | | [place] | [phone] | | | | | [address] | | | | | | [phone] | | | +--------+ + + + [...] | | | 13 | | | [id number] | | | | | | | DS PO) | | | | | | + + + +---------+ + + documented as of this encounter Plan of Treatment Not on filedocumented as of this encounter Visit Diagnoses Not on filedocumented in this encounter"
--- OUTSIDE RECORDS SUMMARY | ~2020-04-13 | XMS | Encounter Summary ---
Demographics + + + | Address | [address] | | | [place] [address] | + + + | Home Phone | | + + + | Preferred Language | Unknown | + + + | Marital Status | | + + + | Restoration Affiliation | 1041 | + + + | Race | Unknown | + + + | Ethnic Group | Unknown | + + + Author + + + | Author | [facility] | | | and [place] | + + + | Organization | [facility] | | [...] Team Providers + +------+ + | Care Civil Design Specialist Name | Role | Phone | + +------+ + PCP | Unavailable | + +------+ + Encounter Details +--------+ + + + + | Date | Type | Department | Care Team | Description | +--------+ + + + + | 10/28/ | Hospital | [facility] | Jose Gerson O, | | | 2013 | Encounter | [facility] | MD [address] [place], | | | | | [address] | [place], [place] | | | | | [place], [place] | [address] | | | | | [address] | [phone] | | | | | [phone] | | | +--------+ + + + [...] | | | 13 | | | [id number] | | | | | | | DS PO) | | | | | | + + + +---------+ + + documented as of this encounter Plan of Treatment Not on filedocumented as of this encounter Visit Diagnoses Not on filedocumented in this encounter"
--- OUTSIDE RECORDS SUMMARY | ~2020-04-13 | XMS | Encounter Summary ---
Demographics + + + | Address | [address] | | | [place] [address] | + + + | Home Phone | | + + + | Preferred Language | Unknown | + + + | Marital Status | | + + + | Mu-Ism Affiliation | 1041 | + + + | Race | Unknown | + + + | Ethnic Group | Unknown | + + + Author + + + | Author | [facility] | | | and [place] | + + + | Organization | [facility] | | | [...] Team Providers + +------+ + | Care Head Tennis Professional Name | Role | Phone | + +------+ + | Greg Chandler MD | PCP | | + +------+ + Encounter Details +--------+ + + + + | Date | Type | Department | Care Team | Description | +--------+ + + + + | 10/16/ | Hospital | [facility] | Rivas Mcleodmilan Chambers, | Displaced transverse | | 2019 | Encounter | [place] [facility] [address] | PA[address]C [address] | fracture of shaft | | | | [address] | [address] [place] [address] | of left tibia, | | | | [place], [place] | [place], [place] | subsequent encounter | | | | [address] | [address] | for open fracture | | | | [phone] | [phone] | type I or II with | [...] | | | 13 | | | [id number] | | | | | | | [...] XR TIBIA FIBULA LEFT | Routin | 10/16/2019 | Displaced | Results for this | | 2 VW | e | 9:56 AM | transverse fracture | procedure are [...]
--- OUTSIDE RECORDS SUMMARY | ~2020-04-13 | XMS | Encounter Summary ---
Demographics + + + | Address | [address] | | | [place] [address] | + + + | Home Phone | | + + + | Preferred Language | Unknown | + + + | Marital Status | | + + + | Yarsanism Affiliation | 1041 | + + + | Race | Unknown | + + + | Ethnic Group | Unknown | + + + Author + + + | Author | [facility] | | | and [place] | + + + | Organization | [facility] | | | [...] Team Providers + +------+ + | Care Machine Set Up Operator Name | Role | Phone | + +------+ + PCP | Unavailable | + +------+ + Encounter Details +--------+ + + + + | Date | Type | Department | Care Team | Description | +--------+ + + + + | 03/25/ | Hospital | [facility] | Greg Chandler, | | | 2012 | Encounter | [facility] [address] | | | | | [address] | [place], [place] | | | | | [place], [place] | [address] | | | | | [address] | [phone] | | | | | [phone] | | | +--------+ + + + [...]
--- OUTSIDE RECORDS SUMMARY | ~2020-04-13 | XMS | Encounter Summary ---
Demographics + + + | Address | [address] | | | [place] [address] | + + + | Home Phone [...] Team Providers + +------+ + | Care Designer Writer Name | Role | Phone | + +------+ + PCP | Unavailable | + +------+ + Encounter Details +--------+ + + + + | Date | Type | Department | Care Team | Description | +--------+ + + + + | [facility] Chris Hsu | | | [facility] | En[facility] | [facility] | [address] | | | | | [address] | [address] | | | | | [place], [place] | [place] [address] | | | | | [address] | [phone] | | | | | [phone] | | | +--------+ + + + [...]
--- OUTSIDE RECORDS SUMMARY | ~2020-04-13 | XMS | Encounter Summary ---
Demographics + + + | Address | [address] | | | [place] [address] | + + + | Home Phone | | + + + | Preferred Language | Unknown | + + + | Marital Status | | + + + | Jewish Affiliation | 1041 | + + + | Race | Unknown | + + + | Ethnic Group | Unknown | + + + Author + + + | Author | [facility] | | | and [place] | + + + | Organization | [facility] | | | [...] Team Providers + +------+ + | Care Passenger Booking Clerk Name | Role | Phone | + +------+ + | Greg Chandler MD | PCP | | + +------+ + Encounter Details +--------+---------+ + + + | Date | Type | Department | Care Team | Description | +--------+---------+ + + + | 05/06/ | Office | [facility] | GuillenCollin, | Status post | | 2018 | Visit | [facility] | DO [address] , | arthroscopy of right | | | | [address] | [place] | knee (Primary Dx); | | | | [place], [place] | [address] | Primary | | | | [address] | [phone] | osteoarthritis of | | | | [phone] | | right knee | +--------+---------+ + [...] documented as of this encounter Progress Notes Collin Guillen DO - 05/06/2018 10:00 AM PDTNS documented in this encounter Plan of Treatment Not on filedocumented as of this encounter Visit Diagnoses + + | Diagnosis | + + | Status post arthroscopy of right knee - Primary Other postprocedural status | + + | Primary osteoarthritis of right knee Primary localized osteoarthrosis, lower leg | + + documented in this encounter"
--- OUTSIDE RECORDS SUMMARY | ~2020-04-13 | XMS | Encounter Summary ---
Demographics + + + | Address | [address] | | | [place] [address] | + + + | Home Phone | | + + + | Preferred Language | Unknown | + + + | Marital Status | | + + + | Episcopal Affiliation | 1041 | + + + | Race | Unknown | + + + | Ethnic Group | Unknown | + + + Author + + + | Author | [facility] | | | and [place] | + + + | Organization | [facility] | | | [...] Team Providers + +------+ + | Care Telecommunications Engineer Name | Role | Phone | + +------+ + PCP | Unavailable | + +------+ + Encounter Details +--------+ + + + + | Date | Type | Department | Care Team | Description | +--------+ + + + + | 05/20/ | Hospital | [facility] | Ayad Coleman, | | | 2016 | Encounter | [facility] | [address] | | | | | [address] | [place] [address] | | | | | [place] | [phone] | | | | | [address] | | | | | | [phone] | | | +--------+ + + + [...] | | | 13 | | | [id number] | | | | | | | [...]
--- OUTSIDE RECORDS SUMMARY | ~2020-04-13 | XMS | Encounter Summary ---
Demographics + + + | Address | [address] | | | [place] [address] | + + + | Home Phone | | + + + | Preferred Language | Unknown | + + + | Marital Status | | + + + | Jehovah'S Witness Affiliation | 1041 | + + + | Race | Unknown | + + + | Ethnic Group | Unknown | + + + Author + + + | Author | [facility] | | | and [place] | + + + | Organization | [facility] | | [...] Team Providers + +------+ + | Care Yeast Pumper Name | Role | Phone | + +------+ + | Greg Chandler MD | PCP | | + +------+ + Reason for Visit + + + | Reason | Comments | + + + | Post-op Exam | left tibia | + + + Self-referral (Routine) + [...] | | s/keisha VIZCAINO L | | [address] | | | | | open tibia | | [address] | | | | | Procedures | | [place] | | | | | POST OP | | [id number] Phone: | | | | | | | [phone] | | | | | | | Fax: | | | | | | | [phone] | + +--------+ + + + + Encounter Details +--------+---------+ + + + | Date | Type | Department | Care Team | Description | +--------+---------+ + + + | 07/23/ | Office | [facility] | Martin Mcleod, | Displaced transverse | | 2018 | Visit | NADA [address] | PA-C [address] | fracture of shaft | | | | BLVD [place], [place] | [address] | of left tibia, | | | | [address] | [place], [place] | subsequent encounter | | | | [phone] | [address] | for open fracture | | | | | [phone] | type I or II with | [...] + + + | Blood Pressure | 110/70 | 07/23/2019 10:57 AM | | | | | PDT | | + + + + + | Pulse | 69 | 07/23/2019 10:57 AM | | | | | PDT | | + + + + + | Temperature | - | - | | + + + + + | Respiratory Rate | - | - | | + + + + + | Oxygen Saturation | 100% | 07/23/2019 10:57 AM | | | | | PDT | | + + + + + | Inhaled Oxygen | - | - | | | Concentration | | | | + + + + + | Weight | 61.2 kg (135 lb) | 07/23/2019 10:57 AM | | | | | PDT | | + + + + + | Height | 167.6 cm (5' 6") | 07/23/2019 10:57 AM | | | | | PDT | | + + + + + | Body Mass Index | 21.79 | 07/23/2019 10:57 AM | | | | | PDT | | + + + + + documented in this encounter Patient Instructions Patient Instructions Martin Mcleod PA-C - 07/23/2019 10:30 AM PDTContinue to progress with activity Call the office with any questions or concerns documented in this encounter Progress Notes Martin Mcleod PA-C - 07/23/2019 10:30 AM PDT 07/23/2019 INTERVAL HISTORY Patient presents to the office 8 weeks s/p IMN L tibia. Reports pain as a pressure sensati on that is 4/10 in severity. She has been weightbearing as tolerated, but admits to guardin g secondary to pain. Recently she noted improvement in her knee and ankle discomfort but no w he is experiencing more pain directly over the area of the fracture. Motion of the knee h as greatly improved. Denies any loss of sensation distally, but is having difficulty with e xtending the great toe. Vitals: 07/23/19 1057 BP: 110/70 Pulse: 69 PainSc: 4 PHYSICAL EXAMINATION LLE - knee: Incisions w/o erythema, discharge or warmth. TTP over the mid tibia. Knee ext ension to 0 degrees, flexion past 90 degrees. Degrees. No ligament instability with valgus and varus stress. Sensation intact distally. Antalgic gait DIAGNOSTIC DATA: Recent Results (from the past 360 hour(s)) XR Tibia Fibula Left 2 Vw Narrative X-ray 2 views left tibia: Slight interval healing of the midshaft tibia fracture with stable appearing intramedullary nail fixation. No hardware complication is noted. Electronically signed by: Michel Regan MD 07/23/2019 11:18 ASSESSMENT/ PLAN 1. Displaced transverse fracture of shaft of left tibia, subsequent encounter for open frac ture type I or II with routine healing XR Tibia Fibula Left 2 Vw Alecia is 8 weeks s/p IMN L tibia. Mild healing seen on imaging with stable appearing hardwa re. Pain along the anterior mid tibia can be attributed to the fact that she has not healed this fracture. She will continue to be weightbearing as tolerated and slowly progress her level of activity. We will reassess her progress in 6 weeks. Orders Placed This Encounter Procedures XR Tibia Fibula Left 2 Vw Requested Prescriptions No prescriptions requested or ordered in this encounter Return in about 6 weeks (around 09/03/2019). Continue to progress with activity Call the office with any questions or concerns Xrays for next visit: 2 views left tibia Electronically signed by: Martin Mcleod PA-C 07/24/2019 14:01 documented in thi s encounter Plan of [...]
--- OUTSIDE RECORDS SUMMARY | ~2020-04-13 | XMS | Encounter Summary ---
Demographics + + + | Address | [address] | | | [place] [address] | + + + | Home Phone | | + + + | Preferred Language | Unknown | + + + | Marital Status | | + + + | Jainism Affiliation | 1041 | + + + | Race | Unknown | + + + | Ethnic Group | Unknown | + + + Author + + + | Author | [facility] | | | and [place] | + + + | Organization | [facility] | | | [...] Team Providers + +------+ + | Care Lifter Name | Role | Phone | + +------+ + PCP | Unavailable | + +------+ + Encounter Details +--------+ + + + + | Date | Type | Department | Care Team | Description | +--------+ + + + + | 10/20/ | Hospital | [facility] | Lawrence Anatoly Harley, DESTINATION IMAGINATION COORDINATOR | | | 2016 | Encounter | [facility] | [address] [place] | | | | | [address] [place] | [place], [place] | | | | | [place], [place] | [address] | | | | | [address] | [phone] | | | | | [phone] | | | +--------+ + + + [...] | | | 13 | | | [id number] | | | | | | | [...] +--------+ + + + | XR KNEE 3 VWS | Routin | 10/20/2015 | | Results for this | | | e | 10:45 AM | | procedure are in the | | | | PST | | results section. | + +--------+ + + + documented in this encounter Results XR Knee 3 Vws (10/20/2015 10:45 AM PST) + + | Specimen | + + | | + + + + + | Narrative | Performed At | + + + | ORIGINAL ORTHO KNEE, THREE VIEW, BILATERAL: | | | CLINICAL STATEMENT: Pain. COMPARISON: None. REPORT: At the | | | medial knee joint bilaterally mild bony hypertrophic change is present | | | without distinct narrowing. At the right lateral knee joint mild | | | bony hypertrophic change is present at the tibial plateau. No | | | distinct bony hypertrophic change is seen at the patellofemoral | | | joint and no patellar subluxation is evident on merchant views. | | | IMPRESSION: Mild apparent joint degenerative changes noted medial and | | | lateral knee joint on the right and medial knee joint on the left. | | | Read By: BRANDON Bain | | | MD TARYN Released By: BRANDON CENTENO MD Date: 10/20/2015 | | | 20:51 | | + + + + + | Procedure Note | + + | Leander, Rad Results In - 08/21/2017 9:21 PM PST ORIGINAL ORTHO KNEE, THREE VIEW, | | BILATERAL: CLINICAL STATEMENT:Pain. COMPARISON:None. REPORT:At the medial knee joint | | bilaterally mild bony hypertrophic change is present without distinct narrowing. At the | | right lateral knee joint mild bony hypertrophic change is present at the tibial | | plateau. No distinct bony hypertrophic change is seen at the patellofemoral joint and | | no patellar subluxation is evident on merchant views. IMPRESSION:Mild apparent joint | | degenerative changes noted medial and lateral knee joint on the right and medial knee | | joint on the left. Job#: [id number] Read By: BRANDON CENTENO MD Released | | By: BRANDON CENTENO MDDate: 10/20/2015 20:51 | |COMPARISON: | |None. | | | |REPORT: | |At the medial knee joint bilaterally mild bony hypertrophic change is present without disti nct narrowing. At the right lateral knee joint mild bony hypertrophic change is present at the tibial plateau. No distinct bony hypertrophic change is seen at | |the patellofemoral joint and no patellar subluxation is evident on merchant views. | | | |IMPRESSION: | |Mild apparent joint degenerative changes noted medial and lateral knee joint on the right a nd medial knee joint on the left. | | | | | | | | | | | | | | | |Read By: BRANDON CENTENO MD | | | |Released By: BRANDON CENTENO MD | |Date: 10/20/2015 20:51 | | | | | + + documented in this encounter Visit Diagnoses Not on filedocumented in this encounter"
--- OUTSIDE RECORDS SUMMARY | ~2020-04-13 | XMS | Clinical Summary ---
Demographics + + + | Address | [address] | | | [place] [address] | + + + | Home Phone | | + + + | Preferred Language | Unknown | + + + | Marital Status | | + + + | Mormonism Affiliation | 1041 | + + + | Race | Unknown | + + + | Ethnic Group | Unknown | + + + Author + + + | Author | [facility] | | | and [place] | + + + | Organization | [facility] | | | [...] Team Providers + +------+ + | Care Dispatcher Relay Name | Role | Phone | + +------+ + | Greg Chandler MD | PCP | | + +------+ + Allergies + + + + + + | Active Allergy | Reactions | Severity | Noted | Comments | | | | | Date | | + + + + + + | Acetaminophen | | | / | Sensitivity | | | | | 18 | | + + + + + + | Ibuprofen | | | 03/04/20 | Sensitivity | | | | | 18 | | + + + + + + Medications + + + +---------+------+------+-------+ | Medication | Sig | Dispensed | Refills | Star | End | Statu | | | | | | t | Date | s | | | | | | Date | | | + + + +---------+------+------+-------+ | adult multivitamin | Take by mouth. | | 0 | 01/1 | | Activ | | liquid | | | | 5/20 | | e | | | | | | 13 | | | + + + +---------+------+------+-------+ | Misc Natural | Take by mouth. | | 0 | 01/1 | | Activ | | Products ([facility] | | | | 5/20 | | e | | [id number] | | | | 13 | | | | DS PO) | | | | | | | + + + +---------+------+------+-------+ | Calcium | Take by mouth. | | 0 | 01/1 | | Activ | | Carb-Cholecalciferol | | | | 5/20 | | e | | (CALCIUM 1000 + D | | | | 13 | | | | PO) | | | | | | | + + + +---------+------+------+-------+ | cholecalciferol | Take by mouth. | | 0 | 01/1 | | Activ | | (VITAMIN D-3) 1,000 | | | | 5/20 | | e | | units tablet | | | | 13 | | | + + + +---------+------+------+-------+ | oxyCODONE | Take 1-2 tablets by | 60 | 0 | 06/1 | | Activ | | (ROXICODONE) 5 mg | mouth every 4 hours | tablet | | 3/20 | | e | | tablet | as needed for Pain. | | | 18 | | | + + + +---------+------+------+-------+ +---+ + | | Additional | | | InformationPatient | | | not taking. Reported | | | on 07/23/2019 11:02 | | | AM | +---+ + + + +--------+---+------+---+-------+ | | Take 1-2 tablets by | 35 | 0 | 08/2 | | Activ | | HYDROcodone-acetamin | mouth EVERY 4 TO 6 | tablet | | 0/20 | | e | | ophen (NORCO) 5-325 | HOURS NEEDED for | | | 19 | | | | mg per tablet | Pain. | | | | | | + + +--------+---+------+---+-------+ +---+ + | | Additional | | | InformationPatient | | | not taking. Reported | | | on 07/23/2019 11:02 | | | AM | +---+ + Active Problems + + + | Problem | Noted Date | + + + | Status post arthroscopy of right knee | 04/07/2018 | + + + | LEYDI (acute kidney injury) | 02/14/2018 | + + + | Primary osteoarthritis involving multiple joints | 02/14/2018 | + + + | Primary osteoarthritis of right knee | 12/31/2017 | + + + Resolved Problems + + + + | Problem | Noted | Resolved | | | Date | Date | + + + + | Lateral meniscus tear, current | 12/26/19 | | | | 18 | 8 | + + + + Family History + + +------+ + | Medical History | Relation | Name | Comments | + + +------+ + | Ulcerative colitis | Brother | | | + + +------+ + | Stroke | Father | | | + + +------+ + | Other (see comment) | Father | | CVA | + + +------+ + | Macular [...] +------+ + + | Mother | | | | + +------+ + [...] + + + + | Temperature | 36.7 C (98 F) | 05/21/2019 1:37 PM | | | | | PDT | | + + + + + | Respiratory Rate | 16 | 05/21/2019 1:37 PM | | | | | PDT [...] | | + + + + + Plan of Treatment + + +-------+ + | Health Maintenance | Due Date | Last | Comments | | | | Done | | + + +-------+ + | Hepatitis C | | | | | Screening | 9 | | | + + +-------+ + | Vaccine: | | | | | Dtap/Tdap/Td (1 - | 8 | | | | Tdap) | | | | + + +-------+ + | Cervical Cancer | | | | | Screening (Pap) | 9 | | | + + +-------+ + | Colorectal Cancer | | | | | Screening | 9 | | | | (Colonoscopy) | | | | + + +-------+ + | Vaccine: Zoster (1 | | | | | of 2) | 9 | | | + + +-------+ + | Breast Cancer | | | | | Screening | 4 | | | + + +-------+ + | Vaccine: Influenza | | | | | (Season Ended) | 0 | | | + + +-------+ + Implants + +------+------+ +--------+--------+--------+ | Implanted | Type | Area | Manufacture | Device | Shelf | Model | | | | | r | | Expira | / | | | | | | Identi | tion | Serial | | | | | | fier | Date | / Lot | + +------+------+ +--------+--------+--------+ | Screw Im Oksana Slf-Tp F/T | | | Synthes | | | 04.005 | | 5x30mm - SnaImplanted: Qty: 1 | | | | | | .520 | | on 05/19/2019 by Jass, | | | | | | /NA | | MD Michel | | | | | | /NA | + +------+------+ +--------+--------+--------+ | Screw Im Oksana Slf-Tp F/T | | | Synthes | | | 04.005 | | 5x32mm - SnaImplanted: Qty: 2 | | | | | | .522 | | on 05/19/2019 by Jass, | | | | | | /NA | | MD Michel | | | | | | /NA | + +------+------+ +--------+--------+--------+ | Screw Im Oksana Slf-Tp F/T | | | Synthes | | | 04.005 | | 5x38mm - SnaImplanted: Qty: 1 | | | | | | .528 | | on 05/19/2019 by Jass, | | | | | | /NA | | MD Michel | | | | | | /NA | + +------+------+ +--------+--------+--------+ | Nail Tib Prox Ex [id number] - | | | Synthes | | 02/10/ | 04.034 | | SnaImplanted: Qty: 1 on | | | | | 2027 | .[id number] | | 05/19/2019 by Jass, | | | | | | /NA | | MD Michel | | | | | | /[id number] | | | | | | | | 63 | + +------+------+ +--------+--------+--------+ Results Not on filefrom Last 3 Months Insurance +-------+--------+ +--------+ + +------+ | Payer | Benefi | Subscriber | Effect | Phone | Address | Type | | | t Plan | ID | floridalma | | | | | | / | | Dates | | | | | | Group | | | | | | +-------+--------+ +--------+ + +------+ | MODA | MODA | [id number] | | [phone] | [address] | PPO | | | [place] | | [address] | [id number] | | | | [place] | | esent | | [place], | | | | [place] | | | | [place] [address] | | +-------+--------+ +--------+ + +------+ | MODA | MODA | [id number] | | [phone] | [address] | PPO | | | [place] | | [address] | [id number] | | | | [place] | | esent | | [place], | | | | [place] | | | | [place] [address] | | +-------+--------+ +--------+ + +------+ + +--------+ +--------+ + + | Guarantor Name | Accoun | Relation to | Date | Phone | Billing Address | | | t Type | Patient | of | | | | | | | | | | + +--------+ +--------+ + + | Alecia Gale | Person | Self | [birth year] | [address] | | | al/Fam | | 1960 | [phone] | [place] | | | cristy | | | [address] (Home) | [address] | + +--------+ +--------+ + + | Alecia Gale | Person | Self | [birth year] | [address] | | | al/Fam | | 1960 | [phone] | [place] | | | [place]isty | | | [address] (Home) | [address] | + +--------+ +--------+ + + Advance Directives + + + + + | Type | Date Recorded | Patient | Explanation | | | | Rounding Machine Operator | | + + + + + | Power of | | | | | Pot Operator | | | | + + + + + | Advance | 04/08/2018 6:11 | | | | Directive | AM | | | + + + + + + + + + + | Code Status | Date | Date | Comments | | | Activated | Inactivated | | + + + + + | Full Code | 03/26/2018 | 03/26/2018 | | | by default | 9:38 AM | 1:06 PM | | | - TBD | | | | + + + + +
--- OUTSIDE RECORDS SUMMARY | ~2020-04-13 | XMS | Encounter Summary ---
Demographics + + + | Address | [address] | | | [place] [address] | + + + | Home Phone [...] Team Providers + +------+ + | Care Accounting File Clerk Name | Role | Phone | + +------+ + PCP | Unavailable | + +------+ + Encounter Details +--------+ + + + + | Date | Type | Department | Care Team | Description | +--------+ + + + + | 02// | Hospital | [facility] | Ayad Coleman, | | | 2016 | Encounter | [facility] | [address] | | | | | [address] | [place] [address] | | | | | [place] | [phone] | | | | | [address] | | | | | | [phone] | | | +--------+ + + + [...] | | | 13 | | | [id number] | | | | | | | DS PO) | | | | | | + + + +---------+ + + documented as of this encounter Miscellaneous Notes Op Note - Ayad Coleman - 11/24/2015 9:27 AM [facility] Dictating Practitioner: AYAD COLEMAN MD Patient Name: ALECIA WASHINGTON Patient Date of : 1960 Visit Number: [id number] OPERATIVE REPORT DATE OF SURGERY: 11/24/2015 PREOPERATIVE DIAGNOSIS: Left lateral meniscus tear and left knee loose body. POSTOPERATIVE DIAGNOSIS: Left lateral meniscus tear and left knee loose body. FINDINGS: Bucket handle tear of the lateral meniscus. PROCEDURES: 1. Left knee arthroscopy. 2. Loose body removal. 3. Partial lateral meniscectomy. SURGEON:Ayad Coleman MD ANESTHESIA:General with local EBL:Minimal TOTAL TOURNIQUET TIME:68 minutes FLUID REPLACEMENT:1200 mL of LR URINE OUTPUT:Not measured SPECIMENS:None DRAINS:None COMPLICATIONS:None INDICATIONS: Alecia is a 55-year-old female who in 09/2015 noticed a significant popping sensation which is very painful for her in her knee. She continued to have popping and mechanical symptoms and persistent pain. She eventually had an MRI which confirmed a lateral meniscus bucket handle tear and a possible loose body. She elected for surgical treatment to consist of a knee arthroscopy, partial lateral meniscectomy, and loose body excision. All risks and benefits of the surgery were explained. Informed consent was signed in the clinic. DESCRIPTION OF PROCEDURE: The patient was taken to the operating room, placed supine on the table. A timeout was performed, confirming the correct patient, correct surgery to be performed, correct laterality, and the patient's allergies. Preoperative antibiotics were given and were ANCEF 1 gram IV x 1. The anesthesiologist administered the general anesthesia. After adequate anesthesia, an intraarticular injection was given. The superolateral aspect of the knee was prepped with CHLORAPREP. An 18-gauge needle was inserted through the superolateral portal into the joint, and 15 mL of 1% LIDOCAINE with EPINEPHRINE and 15 mL of 0.5% ROPIVACAINE were injected intra-articularly. The left lower extremity was then prepped and draped in sterile fashion using CHLORAPREP. The planned portal sites were injected with 10 mL of 1% LIDOCAINE with EPINEPHRINE. The anterolateral parapatellar portal was established with an 11-blade and the scope was inserted into the knee. Diagnostic arthroscopy was performed. She was found to have grade 2 chondrosis on the patella. She had grade 2 chondral changes on the trochlea. There were no loose bodies in the medial or lateral gutters. The scope was then inserted into the notch and the ACL and PCL were both found to be intact. The bucket handle portion of the lateral meniscus tear was noted to be flipped into the notch. The scope was then inserted into the medial compartment. A small loose body was found in the medial compartment and was removed. She had grade 2 chondral changes on the medial femoral condyle and grade 2 chondral changes in the medial tibial plateau. The medial meniscus was intact. Scope was then inserted into the lateral compartment. She had grade 1 chondral changes on the lateral femoral condyle. She had grade 2 changes in the lateral tibial plateau. The bucket handle tear of the lateral meniscus was obvious, and the large bucket handle fragment was displaced into the notch. A combination of shaver and a biter was used to remove the torn portion of the meniscus. A shaver was then used to debride the meniscus back to a stable edge. The tear extended to the capsule and after the partial meniscectomy, the popliteus tendon was easily visualized. The tear extended from the posterior horn into the anterior body of the meniscus. After the meniscectomy was completed, I then surveyed the joint again to look for any potential loose pieces of meniscus and none were found. The scope was then removed. The portal sites were closed with 4-0 nylon sutures. An intraarticular injection of 10 mL of 0.5% ROPIVACAINE was injected through the lateral parapatellar portal into the joint. A sterile dressing was applied and the leg was wrapped in an Apolinar bandage from the foot proximal to the knee. She was awakened from anesthesia and transferred to the PACU in stable condition. POSTOPERATIVE PLAN: The patient will be weightbearing as tolerated and I will encourage elevation and range of motion of the knee. Dressing instructions were given. I will plan to see her back in 2 weeks' time for her first postoperative visit. [id number] / [id number] Dictation Date/Time: November 24, 2015 01:47PM General Maintenance Mechanic Date/Time: November 25, 2015 06:34AM Authenticated and Edited by Ayad Coleman MD On 11/28/15 11:55:33 AM [facility] Signed and Approved by: AYAD COLEMAN MD 11/28/2015 11:55:00 documented in this encoun ter Plan of Treatment Not on filedocumented as of this encounter Visit Diagnoses Not on filedocumented in this encounter"
--- OUTSIDE RECORDS SUMMARY | ~2020-04-13 | XMS | Clinical Summary ---
Demographics + + + | Address | [address] | | | [place] [address] | + + + | Home Phone | | + + + | Preferred Language | Unknown | + + + | Marital Status | Single | + + + | Buddhism Affiliation | Unknown | + + + | Race | Unknown | + + + | Ethnic Group | Other Race | + + + Author + + + | Author | [facility] | + + + | Organization | [facility] | + + + | Address | Unknown | + + + | Phone | Unavailable | + + + Care Team Providers + +------+ + | Care Durable Medical Equipment Technician Name | Role | Phone | + +------+ + PCP | Unavailable | + +------+ + Source Comments [facility] is fully live on both [facility] and [facility] Allergies Not on File Medications Not on [...] [employer] | MODA | [phone] | | [phone] | [address] | PPO | | | [place] | | [address] | [phone] | | | | [place] | | esent | | [place], | | | | [place] | | | | [place] [address] | | + +--------+ +--------+ + +------+ + +--------+ +--------+ + + | Guarantor Name | Accoun | Relation to | Date | Phone | Billing Address | | | t Type | Patient | of | | | | | | | | | | + +--------+ +--------+ + + | Alecia Gale | Person | Self [birth year] | [address] | | | [place] | | [phone] | [phone] | [place] | | | [place] | | | [address] ([place]) | [address] | + +--------+ +--------+ + +"
--- OUTSIDE RECORDS SUMMARY | ~2020-04-13 | XMS | Encounter Summary ---
Demographics + + + | Address | [address] | | | [place] [address] | + + + | Home Phone | | + + + | Preferred Language | Unknown | + + + | Marital Status | | + + + | Buddhist Affiliation | 1041 | + + + | Race | Unknown | + + + | Ethnic Group | Unknown | + + + Author + + + | Author | [facility] | | | and [place] | + + + | Organization | [facility] | [...] Team Providers + +------+ + | Care Geopolitics Teacher Name | Role | Phone | [...] | Specialty | Physical | Diagnoses | Cannon, | | | | Services | Therapy | Primary | Collin Harley, | | | | Required | | osteoarthrit | DO [address] | | | | | | is of right | [address], | | | | | | knee Status | [place] | | | | | | post | [place], [place] | | | | | | arthroscopy | [address] | | | | | | of right | Phone: | | | | | | knee | [phone] | | | | | | Procedures | Fax: | | | | | | PT | [phone] | | +--------+ + + + + + Reason for Visit +---------+ + | Reason | Comments | +---------+ + | Post Op | 2wk PO R knee arth w/PLM, DOS 03/26/18 | +---------+ + Encounter Details +--------+---------+ + + + | Date | Type | Department | Care Team | Description | +--------+---------+ + + + | 04/08/ | Office | [facility] | Collin Cannon, | Primary | | 2018 | Visit | [facility] | DO [address] , | osteoarthritis of | | | | [address] | [place], [place] | right knee (Primary | | | | [place], [place] | [address] | Dx); Status post | | | | [address] | [phone] | arthroscopy of right | | | | [phone] | | knee | +--------+---------+ + + + Social [...] + + + | Blood Pressure | 116/66 | 04/08/2018 1:45 PM | | | | | PDT | | + + + + + | Pulse | 87 | 04/08/2018 1:45 PM | | | | | PDT | | + + + + + | Temperature | - | - | | + + + + + | Respiratory Rate | 18 | 04/08/2018 1:45 PM | | | | | PDT | | + + + + + | Oxygen Saturation | 99% | 04/08/2018 1:45 PM | | | | | PDT | | + + + + + | Inhaled Oxygen | - | - | | | Concentration | | | | + + + + + | Weight | 61.2 kg (135 lb) | 04/08/2018 1:45 PM | | | | | PDT | | + + + + + | Height | 167.6 cm (5' 6") | 04/08/2018 1:45 PM | | | | | PDT | | + + + + + | Body Mass Index | 21.79 | 04/08/2018 1:45 PM | | | | | PDT | | + + + + + documented in this encounter Patient Instructions Patient Instructions Collin Cannon, DO - 04/08/2018 1:40 PM [facility] [place] [facility] ion Guidelines You may begin with the first 3 exercises right away. When swelling in your knee has gone do wn and you are able to stand with equal weight on both legs, you may do the remaining exerci ses. Heel slide: Sit on a firm surface with your legs straight in front of you. Slowly slide the heel of the foot on your injured side toward your buttock by pulling your knee toward your chest as you slide the heel. Return to the starting position. Do 2 sets of 15. Quad sets: Sit on the floor with your injured leg straight and your other leg bent. Press t he back of the knee of your injured leg against the floor by tightening the muscles on the t op of your thigh. Hold this position 10 seconds. Relax. Do 2 sets of 15. Passive knee extension: Do this exercise if you are unable to extend your knee fully. While lying on your back, place a rolled-up towel under the heel of your injured leg so the heel is about 6 inches off the ground. Relax your leg muscles and let gravity slowly straighten y our knee. Try to hold this position for 2 minutes. Repeat 3 times. You may feel some discomf ort while doing this exercise. Do the exercise several times a day. This exercise can also be done while sitting in a chair with your heel on another chair or stool. Wall squat with a ball: Stand with your back, shoulders, and head against a wall. Look stra ight ahead. Keep your shoulders relaxed and your feet 3 feet from the wall and shoulder's wi dth apart. Place a soccer or basketball-sized ball behind your back. Keeping your back again st the wall, slowly squat down to a 45-degree angle. Your thighs will not yet be parallel to the floor. Hold this position for 10 seconds and then slowly slide back up the wall. Repeat 10 times. Build up to 2 sets of 15. Balance and reach exercises: Stand next to a chair with your injured leg farther from the c hair. The chair will provide support if you need it. Stand on the foot of your injured leg a nd bend your knee slightly. Try to raise the arch of this foot while keeping your big toe on the floor. 1. Keep your foot in this position. With the hand that is farther away from the chair, james bee forward in front of you by bending at the waist. Avoid bending your knee any more as you d o this. Repeat this 10 times. To make the exercise more challenging, reach farther in front of you. Do 2 sets of 10. 2. terminal carman the same position as above. While keeping your arch height, reach the hand that is farther away from the chair across your body toward the chair. The farther you reach, th e more challenging the exercise. Do 2 sets of 10. Knee stabilization: Wrap a piece of elastic tubing around the ankle of your uninjured leg. Tie a knot in the other end of the tubing and close it in a door at about ankle height. 1. Stand facing the door on the leg without tubing and bend your knee slightly, keeping you r thigh muscles tight. Stay in this position while you move the leg with the tubing straight back behind you. Do 2 sets of 15. 2. Turn 90 degrees so the leg without tubing is closest to the door. Move the leg with tubi ng away from your body. Do 2 sets of 15. 3. Turn 90 degrees again so your back is to the door. Move the leg with tubing straight out in front of you. Do 2 sets of 15. 4. Turn your body 90 degrees again so the leg with tubing is closest to the door. Move the leg with tubing across your body. Do 2 sets of 15. Hold onto a chair if you need help balancing. This exercise can be made more challenging by standing on a firm pillow or foam mat while you move the leg with tubing. Resisted terminal knee extension: Make a loop with a piece of elastic tubing by tying a kno t in both ends. Close the knot in a door at knee height. Step into the loop with your injure d leg so the tubing is around the back of your knee. Lift the other foot off the ground and hold onto a chair for balance, if needed. Bend the knee with tubing about 45 degrees. Slowly straighten your leg, keeping your thigh muscle tight as you do this. Repeat 15 times. Do 2 sets of 15. If you need an easier way to do this, stand on both legs for better support whil e you do the exercise. documented in this encounter Progress Notes Collin Cannon DO - 04/08/2018 1:40 PM PDTFormatting of this note might be different f rom the original. Date of Service: 04/08/2018 Provider: Collin Cannon Pt. Name/Age/: Alecia Gale 58 y.o. 1960 Date of Evalutaion: 04/08/2018 Chief Complaint Patient presents with Post Op 2wk PO R knee arth w/PLM, DOS 03/26/18 ORTHOPEDIC CLINIC NOTE DATE OF SERVICE 04/08/18 INTERVAL HISTORY Alecia Gale returns to clinic today for follow-up. Overall patient is doing fairly well. She has pain and swelling that is persistent however this is to be expected at this point. She does have some stiffness in her knee and would like to be set up with physical therapy in [facility]. OBJECTIVE Vitals: 04/08/18 1345 BP: 116/66 Pulse: 87 Resp: 18 PainSc: 5 PainLoc: Knee GEN: AAO x 3, NAD Incisions are clean dry and intact. Sutures are removed and Steri-Strips applied. Sensati on is intact light touch L4-S1 dermatomes bilaterally. EHL dorsiflexion plantar flexion 5 o ut 5 bilaterally. Calves are supple nontender bilaterally. There is some bruising about th e knee however no effusion is appreciated today. ASSESSMENT 1. 2 week post Procedure: Right Knee diagnostic and operative arthroscopy with partial late ral meniscectomy and chondroplasty of the patella as well as well as lateral femoral condyle and medial plica excision 2. Preoperative diagnosis: Right knee complex lateral meniscus tear with tricompartmental d egenerative joint disease PLAN 1. Incision care instructions were provided 2. Direction regarding range of motion and strengthening exercises were provided 3. Follow-up in 4 weeks for repeat evaluation More than 20 minutes were spent reviewing patient's medical chart as well as reviewing imag ing and subsequent face to face discussion with and examination of Alecia Gale during our visit. More than 50% of the visit was spent providing education and counseling to Alecia lopez issues documented in this note. I attest to having reviewed the patient's medical surgical family and social histories as w ell as medications allergies and vital signs found in this chart note which was recorded by my nursing home assistant today. Electronically signed by: Collin Cannon DO 04/08/2018 14:19 CC: Greg Chandler MD No ref. provider found Note: Part of this report was transcribed using voice recognition software. Every effort w as made to ensure accuracy. However, inadvertent computerized swing frame grinder operator errors may be pr esent. documented in this encounter Miscellaneous Notes Addendum Note - Collin Cannon DO - 04/08/2018 1:40 PM PDT Addended by: NESHA CANNON on: 04/08/2018 19:47 Modules accepted: Orders documented in thi s encounter Plan of Treatment + + +--------+ + + | Name | Type | Priori | Associated Diagnoses | Order Schedule | | | | ty | | | + + +--------+ + + | Physical Therapy - | Outpatient | Routin | Primary | Ordered: 04/08/2018 | | Ambulatory Referral | Referral | e | osteoarthritis of | | | | | | right knee Status | | | | | | post arthroscopy of | | | | | | right knee | | + + +--------+ + + documented as of this encounter Visit Diagnoses + + | Diagnosis | + + | Primary osteoarthritis of right knee - Primary Primary localized osteoarthrosis, | | lower leg | + + | Status post arthroscopy of right knee Other postprocedural status | + + documented in this encounter
--- OUTSIDE RECORDS SUMMARY | ~2020-04-13 | XMS | Encounter Summary ---
Demographics + + + | Address | [address] | | | [place] [address] | + + + | Home Phone | | + + + | Preferred Language | Unknown | + + + | Marital Status | | + + + | Rastafari Affiliation | 1041 | + + + | Race | Unknown | + + + | Ethnic Group | Unknown | + + + Author + + + | Author | [facility] | | | and [place] | + + + | Organization | [facility] | | | [...] Team Providers + +------+ + | Care Body Rolling Machine Tender Name | Role | Phone | + +------+ + | Greg Chandler MD | PCP | | + +------+ + Encounter Details +--------+ + + + + | Date | Type | Department | Care Team | Description | +--------+ + + + + | 02/11/ | Orders Only | [facility] | Conversion | | | 2018 | | NEPHROLOGY JULIA | Transaction, | | | | | [address] [place] | Provider Unknown | | | | | [address] [facility] [place] | | | | | | [address] | (Fax) | | | | | [phone] | | | +--------+ + + + [...] | EXTERNAL LAB: CBC | Routin | 02/11/2018 | | Results for this | | | e | 3:00 PM | | procedure are in the | | | | PDT | | results section. | + +--------+ + + + | SEDIMENTATION RATE, | Routin | 02/11/2018 | | Results for this | | AUTOMATED | e | 3:00 PM | | procedure are in the | | | | PDT | | results section. | + +--------+ + + + | LIPASE | Routin | 02/11/2018 | | Results for this | | | e | 3:00 PM | | procedure are in the | | | | PDT | | results section. | + +--------+ + + + | COMPREHENSIVE | Routin | 02/11/2018 | | Results for this | | METABOLIC PANEL | e | 3:00 PM | | procedure are in the | | | | PDT | | results section. | + +--------+ + + + documented in this encounter Results Sedimentation rate, automated (02/11/2018 3:00 PM PDT) + +-------+ + + + | Component | Value | Ref Range | Performed | Pathologist | | | | | At | Signature | + +-------+ + + + | Sed Rate | 8 | 0 - 20 | EXTERNAL | | | | | [...] | | | + +---------+ + + External Lab: CBC (02/11/2018 3:00 PM PDT) + +-------+ + + + | Component | Value | Ref Range | Performed | Pathologist | | | | | At | Signature | + +-------+ + + + | WBC | 4.6 | 4.5 - 11.0 10 | EXTERNAL | | | | | | LAB | | + +-------+ + + + | Red Blood | 4.46 | 3.8 - 5.1 10 | EXTERNAL | | | Cells | | | LAB | | | Counted | | | | | + +-------+ + + + | Hemoglobin | 13.6 | 12.0 - 16.0 | EXTERNAL | | | | | g/dL | LAB | | + +-------+ + + + | Hematocrit, | 40.4 | 35 - 45 % | EXTERNAL | | | POC | | | LAB | | + +-------+ + + + | MCV | 90.7 | 81 - 99 fL | EXTERNAL [...] +-------+ + + + | Platelet | 188 | 140 - 440 K/ L | EXTERNAL | | | Count | | | LAB | | | Plasma | | | | | + +-------+ + + + | RDW-CV | 13.4 | 10.5 - 15.0 % | EXTERNAL [...] | | | + +---------+ + + Lipase (02/11/2018 3:00 PM PDT) + +-------+ + + + | Component | Value | Ref Range | Performed | Pathologist | | | | | At | Signature | + +-------+ + + + | Lipase | 15 | 11 - 82 units/L | EXTERNAL | | | | | [...] + +---------+ + + Comprehensive Metabolic Panel (02/11/2018 3:00 PM PDT) + +--------+ + + + | Component | Value | Ref Range | Performed | Pathologist | | | | | At | Signature | + +--------+ + + + | Glucose, | 80 | 70 - 100 mg/dL | EXTERNAL | | | Fasting | | | LAB | | + +--------+ + + + | BUN | 18 | 6 - 23 mg/dL | EXTERNAL | | | | | | LAB | | + +--------+ + + + | Creatinine | 0.92 | 0.7 - 1.33 | EXTERNAL | | | | | mg/dL | LAB | | + +--------+ + + + | BUN/Creatin | 19.6 | 6.0 - 28.6 | EXTERNAL | | | ine Ratio | | | LAB | | + +--------+ + + + | Calcium | 9.5 | 8.4 - 10.2 | EXTERNAL | | | | | mg/dL | LAB | | + +--------+ + + + | Protein, | 6.8 | 6.0 - 8.0 g/dL | EXTERNAL | | | Total | | | LAB | | + +--------+ + + + | Albumin | 4.4 | 3.5 - 5.0 | EXTERNAL | | | | | | LAB | | + +--------+ + + + | Globulin | 2.4 | 1.8 - 3.5 | EXTERNAL | | | | | | LAB | | + +--------+ + + + | A/G Ratio | 1.8 | 1.1 - 2.4 | EXTERNAL | | | | | | LAB | | + +--------+ + + + | Bilirubin | 1.2 | 0.0 - 1.2 mg/dL | EXTERNAL | | | Total | | | LAB | | + +--------+ + + + | ALP, | 102 | 31 - 130 | EXTERNAL | | | External | | | LAB | | + +--------+ + + + | ALT | 61 (A) | 7 - 52 U/L | EXTERNAL | | | | | | LAB | | + +--------+ + + + | AST | 33 | 13 - 39 U/L | EXTERNAL | | | | | | LAB | | + +--------+ + + + | Na | 142 | 132 - 143 | EXTERNAL | | | | | mmol/L | LAB | | + +--------+ + + + | K | 3.7 | 3.6 - 5.1 | EXTERNAL | | | | | mmol/L | LAB | | + +--------+ + + + | Cl | 104 | 95 - 112 mmol/L | EXTERNAL | | | | | | LAB | | + +--------+ + + + | CO2 | 23 | 19 - 31 mmol/L | EXTERNAL | | | | | | LAB | | + +--------+ + + + | Anion Gap | 18.7 | 7 - 21 mmol/L | EXTERNAL | | | | | | LAB | | + +--------+ + + + | Estimated | 63 | mg/dL | EXTERNAL | | | GFR | | | LAB | | + +--------+ + + + + + | Specimen [...]
--- OUTSIDE RECORDS SUMMARY | ~2020-04-13 | XMS | Encounter Summary ---
Demographics + + + | Address | [address] | | | [place] [address] | + + + | Home Phone | | + + + | Preferred Language | Unknown | + + + | Marital Status | | + + + | Methodist Affiliation | 1041 | + + + | Race | Unknown | + + + | Ethnic Group | Unknown | + + + Author + + + | Author | [facility] | | | and [place] | + + + | Organization | [facility] | | | [...] Team Providers + +------+ + | Care Mill Hand Name | Role | Phone | + +------+ + | Greg Chandler MD | PCP | | + +------+ + Encounter Details +--------+ + + + + | Date | Type | Department | Care Team | Description | +--------+ + + + + | 05/29/ | Orders Only | [facility] | Ainsley Mckeon | Injury of lower leg | | 2019 | | [facility] [address] | | | | | [address] | [address] | | | | | [place], [place] | [place] [address] | | | | | [address] | [phone] | | | | | [phone] | | | +--------+ + + + [...] as of this encounter Plan of Treatment + +------+--------+ + + | Name | Type | Priori | Associated Diagnoses | Order Schedule | | | | ty | | | + +------+--------+ + + | CBC with | Lab | Routin | Injury of lower | Expected: | | Differential | | e | leg | 05/25/2019, Expires: | | | | | | 05/21/2020 | + +------+--------+ + + documented as of this encounter Visit Diagnoses + + | Diagnosis | + + | Injury of lower leg Injury, other and unspecified, knee, leg, ankle, and foot | + + documented in this encounter"
--- OUTSIDE RECORDS SUMMARY | ~2020-04-13 | XMS | Encounter Summary ---
Demographics + + + | Address | [address] | | | [place] [address] | + + + | Home Phone | | + + + | Preferred Language | Unknown | + + + | Marital Status | | + + + | Holiness Affiliation | 1041 | + + + [...] Providers + +------+ + | Care Plate Glass Polisher Name | Role | Phone | + +------+ + | Greg Chandler MD | PCP | | + +------+ + Reason for Visit +--------+--------+ + | Reason | Onset | Comments | | | Date | | +--------+--------+ + | Other | 03/26/ | Please Advise | | | 2018 | | +--------+--------+ + Encounter Details +--------+ + + + + | Date | Type | Department | Care Team | Description | +--------+ + + + + | 03/26/ | Telephone | [facility] | Collin Guillen, | Other (Please Advise | | 2018 | | [facility] | DO [address], | ) | | | | [address] | [place], [place] | | | | | [place], [place] | [address] | | | | | [address] | [phone] | | | | | [phone] | | | +--------+ + + + [...] this encounter Miscellaneous Notes Telephone Encounter - Kaya Tran - 03/26/2018 1:18 PM PDTPatient called and is [place] land to know if during her 2wk po visit that is scheduled 04/[address] Guillen if she is uli g her sutures removed during this visit, or if she is needing another appointment to get her sutures removed. Please advise. Kaya Tran documented in this encounter Plan of Treatment Not on filedocumented as of this encounter Visit Diagnoses Not on filedocumented in this encounter"
--- OUTSIDE RECORDS SUMMARY | ~2020-04-13 | XMS | Encounter Summary ---
Demographics + + + | Address | [address] | | | [place] [address] | + + + | Home Phone | | + + + | Preferred Language | Unknown | + + + | Marital Status | | + + + | Oriental Orthodox Affiliation | 1041 | + + + | Race | Unknown | + + + | Ethnic Group | Unknown | + + + Author + + + | Author | [facility] | | | and [place] | + + + | Organization | [facility] | | | and [...] Team Providers + +------+ + | Care Drilling Foreman Name | Role | Phone | + +------+ + | Greg Chandler MD | PCP | | + +------+ + Reason for Referral Diagnostic/Screening (Routine) +--------+--------+ + + + + | Status | Reason | Specialty | Diagnoses / | Referred By | Referred To | | | | | Procedures | Contact | Contact | +--------+--------+ + + + + | Closed | | Radiology | Diagnoses | Jared, | Cc Wgr Xray | | | | | Right knee | Ayad Serrato MD | [address] | | | | | pain, | [address] | [place] | | | | | unspecified | [address] | [place], [place] | | | | | chronicity | [place] | [address] | | | | | Procedures | [id number] | Phone: | | | | | MRI Knee | Phone: | [phone] | | | | | Right wo | [phone] | Fax: | | | | | Contrast | Fax: | [phone] | | | | | | [phone] | | +--------+--------+ + + + + Reason for Visit + + + | Reason | Comments | + + + | Knee Pain | R knee pain/locking | + + + Encounter Details +--------+---------+ + + + | Date | Type | Department | Care Team | Description | +--------+---------+ + + + | 11/21/ | Office | [facility] | Ayad Coleman, | Right knee pain, | | 2018 | Visit | [facility] | [address] | unspecified | | | | [address] | [place] [address] | chronicity (Primary | | | | [place] | [phone] | Dx) | | | | [address] | | | | | | [phone] | | | +--------+---------+ + + + [...] + | Blood Pressure | 118/84 | 11/21/2017 2:51 PM | | | | | PST | | + + + + + | Pulse | 75 | 11/21/2017 2:51 PM | | | | | PST | | + + + + + | Temperature | - | - | | + + + + + | Respiratory Rate | 16 | 11/21/2017 2:51 PM | | | | | PST | | + + + + + | Oxygen Saturation | 95% | 11/21/2017 2:51 PM | | | | | PST | | + + + + + | Inhaled Oxygen | - | - | | | Concentration | | | | + + + + + | Weight | 61.2 kg (135 lb) | 11/21/2017 2:51 PM | | | | | PST | | + + + + + | Height | 167.6 cm (5' 6") | 11/21/2017 2:51 PM | | | | | PST | | + + + + + | Body Mass Index | 21.79 | 11/21/2017 2:51 PM | | | | | PST | | + + + + + documented in this encounter Patient Instructions Patient Instructions Ayad Coleman MD - 11/21/2017 3:21 PM PST Knee Pain with Possible Torn Meniscus [...] surgical or orthopedic supply stores). Follow your [facility] provider's advice about when to begin putting [...] splint. If you have to wear a hukx-rzu-sbrcwjlj brace, yo u can open it to apply the ice pack, or heat, directly to the knee. Never put ice directly o n the skin. Always wrap the ice in a towel or other type of cloth. You may aotrnku-rye-rwlzloo pain medicineto control pain, unless another pain [...] wet, you can dry it with a unhairing inspector. If you have yhccg-wfy-uptranfy b race, you can remove this to [...] 24 to 48 hours Date Last Reviewed: 09/05/201519990096-5010 [employer]. [address] [place] [address]. All righ ts reserved. This information is not intended as a substitute for professional medical care. Always follow your healthcare professional's instructions. documented in this encounter Progress Notes Ayad Coleman MD - 11/21/2017 2:30 PM Adelaida Gale 1960 [id number] 11/21/2017 History of Present Illness This is [...] for follow-up to discuss results and treatment options.Electronically signed by Ayad Coleman MD at 05/2018 3:30 PM PSTdocumented in this encounter Plan of Treatment + +---------+--------+ + + | Name | Type | Priori | Associated Diagnoses | Order Schedule | | | | ty | | | + +---------+--------+ + + | MRI Knee Right wo | Imaging | Routin | Right knee pain, | Expected: | | Contrast | | e | unspecified | 11/21/2017, Expires: | | | | | chronicity | 11/21/2018 | + +---------+--------+ + + documented as of this encounter Results XR Knee [...] unspecified chronicity - Primary | + + documented in this encounter
[~2020-04-13 16:15] MED LIST changes: +NORCO 5-325 TA1 EACH PO
== END 2020-04-13 18:19 | disposition home or self-care (01) ==
LOC: ED 16:15
PROC: 0HQDXZZ Repair Right Lower Arm Skin, External Approach (ICD-10-PCS; principal; 2020-04-13)
DX: S41.111A Laceration without foreign body of right upper arm, initial encounter (principal); S51.811A Laceration without foreign body of right forearm, initial encounter; S20.211A Contusion of right front wall of thorax, initial encounter; Z88.5 Allergy status to narcotic agent; X58.XXXA Exposure to other specified factors, initial encounter
CPT/HCPCS: 12004; 71046; 99283-25

== ENCOUNTER 2022-02-10 20:13 | Emergency (ER) | payer OTHER ==
[~2022-02-10] VITALS: Ht 167.6 cm; Wt 61.2 kg
[2022-02-10] MEDS ORDERED: ULTRAM50 MG PO (20:43)
[2022-02-10] MEDS ORDERED: AMOXICILLIN500 MG PO (20:43)
[2022-02-10] MEDS ORDERED: NEOMYCIN-POLYMY10 M1 OTIC (20:43)
== END 2022-02-10 21:00 | disposition home or self-care (01) ==
LOC: ED 20:13
DX: H66.92 Otitis media, unspecified, left ear (principal); H60.92 Unspecified otitis externa, left ear; Z88.5 Allergy status to narcotic agent
CPT/HCPCS: 99282

== ENCOUNTER 2025-01-01 06:20 | Day surgery (SDC) | payer MEDICARE, OTHER ==
[~2025-01-01] VITALS: Ht 167.6 cm; Wt 65.9 kg
[~2025-01-01 06:20] MED LIST changes: +AMOXICILLIN500 MG PO; +BIOTIN5 M1 PO; +LEVOTHYROXINE50 MC1 PO; +MIDAZOLAM HCL 5 MG/5 ML VIAL IV PRN; +MULTIVITAMIN1 EACH PO; +NEOMYCIN-POLYMY10 M1 OTIC; +TRAZODONE HCL50 MG PO; +ULTRAM50 MG PO; +ZINC50 M2 PO; +fentaNYL citrate 100 MCG/2 ML VIAL IV PRN
[2025-01-01 06:33] VITALS: BP 108/50
[2025-01-01] MEDS ORDERED: fentaNYL citrate 100 MCG/2 ML VIAL ONE (06:53)
[2025-01-01] MEDS ORDERED: MIDAZOLAM HCL 5 MG/5 ML VIAL ONE (06:53)
[2025-01-01] MEDS ORDERED: LACTATED RINGER'S 1,000 ML IV SCH (07:00)
[2025-01-01] MEDS ORDERED: LIDOCAINE HCL 1% 5 ML SDV INJ ONE (07:00)
[2025-01-01] MEDS ORDERED: IBLOOD GLUCOSE TEST STRIP 1 EA TEST VI PRN (07:00)
--- NOTE | 2025-01-01 08:28 | NUR ---
01/01/25 0828 Laura Garcia 0801- PT PRESENTS TO PACU, LEFT LATERAL POSITION, REACTIVE TO STIMULUS. BREATHING EVEN AND NON LABORED, O2 AT 3L PER NC. LR INFUSING TO RFA IV. ABD SOFT, NON DISTENDED. ALL MONITORS IN PLACE. 0808- PT DROWSY, WAKES EASILY TO VERBAL STIMULI BUT FALLS BACK TO SLEEP. ENCOURAGED TO PASS GAS. 0812- DR HOFFMAN AT BEDSIDE TO DISCUSS FINDINGS, PT WAKES AND RESPONDS AND FALLS BACK TO SLEEP. 0828- PT CONTINUES TO REST AT THIS TIME, NO SIGNS OF DISTRESS. CONTINUE TO MONITOR.
[2025-01-01 08:54] VITALS: BP 117/68
--- NOTE | 2025-01-01 12:48 | OR ---
[facility] [address], [place] [address] Signed DATE OF OPERATION: 01/01/2025 SURGEON: Slava Hoffman MD PREOPERATIVE DIAGNOSES: 1. Colon screening. 2. Family history of colon cancer (brother). POSTOPERATIVE DIAGNOSIS: Mild cecal inflammation, otherwise normal. PROCEDURE: Total colonoscopy to cecum with biopsy of cecum. ANESTHESIA: Intravenous sedation; fentanyl 150 mcg and Versed 6 mg. INDICATION: This 64-year-old white woman is a patient of Dr. Chandler in [place], [place]. She is referred for colonoscopy. She has had two colonoscopies in [facility] in the past, neither which showed abnormalities. She believes she may have a brother that has had colon cancer as he does have a colostomy and required surgery. This is not certain, however. She has no current symptoms of bleeding, diarrhea, or constipation. She is admitted at this time to undergo screening colonoscopy, understands the risk of bleeding, infection, and perforation. FINDINGS: The prep was excellent. Complete colonoscopy was undertaken to the cecum with full intubation of the cecum. There was mild inflammation of the cecum and possible melanosis coli there. The remaining colon was entirely normal, showing no sign of polyps, diverticular formation, or cancer. DESCRIPTION OF PROCEDURE: The patient was brought to the endoscopy suite and placed in lateral decubitus position, given intravenous sedation to the point of slurred speech and nystagmus. Digital rectal examination was normal. An Olympus video colonoscope was passed in the rectum and manipulated throughout the colon ultimately intubating the cecum itself. The ileocecal valve and appendiceal orifice were normal. There was some mild inflammatory change of the cecum and findings Electronically Signed By: SLAVA HOFFMAN MD 01/01/25 1248 PATIENT NAME: CAROL WASHINGTON OPERATIVE REPORT DATE OF : 58 REPORT #: [id number] PHYSICIAN: SLAVA HOFFMAN MD PCP: JAMMIE CHANDLER MD REPORT IS CONFIDENTIAL AND NOT TO BE RELEASED WITHOUT AUTHORIZATION [facility] [address], [place] [address] Signed suggestive of melanosis coli. Narrow-band imaging did not further distinguish this. Two biopsies were taken of the cecum. The scope was then withdrawn and careful inspection throughout upon withdrawal of scope showed no sign of abnormality specifically no polyps or diverticula. Retroflexed view of the rectum was normal. Scope was removed. The patient was taken to the recovery room in good condition. CONCLUDING DIAGNOSIS: Mild cecitis of unlikely clinical significance. PLAN: Recommend repeat colonoscopy in 5 years with the presumption her brother had colon cancer. If this was not the case 10 years would be satisfactory. A colonoscopy can and should be performed any time sooner should symptoms occur including persistent diarrhea, persistent bleeding, persistent constipation. She will return to the ongoing care of Dr. Chandler. MD STEPAN Rasmussen/WENDI /[id number] cc: Dr. Geraldine Sarkar [place] Copies: ~ Electronically Signed By: SLAVA HOFFMAN MD 01/01/25 1248 PATIENT NAME: BEATRICEHAICAROL OPERATIVE REPORT DATE OF : 58 REPORT #: [id number] PHYSICIAN: SLVAA HOFFMAN MD PCP: JAMMIE CHANDLER MD REPORT IS CONFIDENTIAL AND NOT TO BE RELEASED WITHOUT AUTHORIZATION
--- NOTE | 2025-01-05 12:08 | PATH ---
[facility] [address] [facility] [place], [place] [address] Signed SPECIMEN(S): A CECUM BIOPSY SPECIMEN SOURCE: A. CECUM BIOPSY CLINICAL HISTORY: Screening FINAL PATHOLOGIC DIAGNOSIS: Cecum biopsy: - Benign colonic mucosa, negative for specific diagnostic abnormality. JVR:clv MICROSCOPIC EXAMINATION: Histologic sections of all submitted blocks are examined by light microscopy. These findings, together with the gross examination, support the pathologic diagnosis. GROSS DESCRIPTION: The specimen, labeled and designated "Shahla, cecum biopsy," is received in formalin and consists of two adkins soft tissue fragments, ranging from 0.2-0.3 cm. Entirely submitted in (A1). VB (under the direct supervision of a pathologist) The Gross Description was prepared using a voice recognition system. The report was reviewed for accuracy; however, sound-alike word errors, addition and/or deletions may occur. If there is any question about this report, please contact Client Services. PERFORMING LABORATORY: Technical component was performed by [employer], [address] [place] [id number] (CLIA# [id number]). Professional interpretation was performed by [facility], [address] [place] [id number] (CLIA#: [id number]). Diagnostician: Gian Gupta MD Pathologist Electronically Signed 01/05/2025 Copies: PATIENT NAME: CAROL WASHINGTON PATHOLOGY DATE OF : 58 REPORT #: [id number] PHYSICIAN: MAT PATHOLOGY PCP: JAMMIE PATIÑO MD REPORT IS CONFIDENTIAL AND NOT TO BE RELEASED WITHOUT AUTHORIZATION [address] [place] [address] Signed ~ PATIENT NAME: CAROL WASHINGTON PATHOLOGY DATE OF : 58 REPORT #: [id number] PHYSICIAN: MAT PATHOLOGY PCP: JAMMIE PATIÑO MD REPORT IS CONFIDENTIAL AND NOT TO BE RELEASED WITHOUT AUTHORIZATION
== END 2025-01-01 09:05 | disposition home or self-care (01) ==
LOC: DS 06:20 → OPS 06:20 → DS 08:15 → OPS 08:15 → DS 13:00
PROVIDERS: ATTEND Surgery
PROC: 0DBH8ZX Excision of Cecum, Via Natural or Artificial Opening Endoscopic, Diagnostic (ICD-10-PCS; principal; 2025-01-01 07:30)
DX: Z12.11 Encounter for screening for malignant neoplasm of colon (principal); K52.9 Noninfective gastroenteritis and colitis, unspecified; E03.9 Hypothyroidism, unspecified; Z79.890 Hormone replacement therapy; Z79.899 Other long term (current) drug therapy; Z88.8 Allergy status to other drugs, medicaments and biological substances; Z80.0 Family history of malignant neoplasm of digestive organs
CPT/HCPCS: 99153; G0500; J2250; J3010; J7121

== ENCOUNTER 2025-01-25 12:33 | Emergency (ER) | payer MEDICARE, OTHER ==
[~2025-01-25] VITALS: Ht 167.6 cm; Wt 69.3 kg
[~2025-01-25 12:33] MED LIST changes: -MIDAZOLAM HCL 5 MG/5 ML VIAL IV PRN; -fentaNYL citrate 100 MCG/2 ML VIAL IV PRN
[2025-01-25 13:39] LABS: BILIRUBIN, URINE NEGATIVE (negative); BLOOD/HGB, URINE SMALL (Negative); KETONE, URINE NEGATIVE (Negative); LEUK ESTERASE, URINE NEGATIVE (negative); NITRITE, URINE NEGATIVE (negative)
[2025-01-25] MEDS ORDERED: KETOROLAC TROMETHAMINE 15 MG/ML VIAL IV ONE (13:45)
[2025-01-25] MEDS ORDERED: ondansetron HCL 4 MG/2 ML VIAL IV PRN (13:45)
[2025-01-25 13:53] LABS: BACTERIA, URINE NONE SEEN /hpf (negative); CASTS, URINE NONE SEEN \\lpf; COLLECTION TYPE, URINE CLEAN CATCH; CRYSTALS, URINE NONE SEEN (0-1+); EPITHELIAL CELLS, URINE 0 /lpf (0-1+); REFLEX CULTURE, URINE No (No); WHITE BLOOD CELLS, URINE 0-1 /HPF (0-5)
[2025-01-25 14:08] LABS: BASOPHILS 0.2 % (0-2); EOSINOPHILS 1.1 % (0-6); HEMATOCRIT 42.1 % (35.0-50.0); HEMOGLOBIN 14.8 g/dL (12.0-18.0); LYMPHOCYTES 25.2 % (24-44); MCH 30.5 (27-36); MCHC 35.3 g/dl (30-36); MCV 86.5 fl (81-99); MONOCYTES 6.1 % (0-12); NEUTROPHILS 67.4 % (39-80); PLATELET COUNT 208 K/uL (140-440); RBC 4.87 M/ul (4.3-5.7); RDW 13.1 (10.5-15.0)
[2025-01-25 14:22] LABS: ALBUMIN 3.7 g/dL (3.4-5.0); ALBUMIN/GLOBULIN RATIO 1.12 (1.1-2.4); ANION GAP 9.9 (7-21); BILIRUBIN, TOTAL 0.9 mg/dL (0.2-1.0); BUN/CREATININE RATIO 22.66 (6.0-28.6); CALCIUM 9.2 mg/dL (8.5-10.1); CREATININE, SERUM 0.75 mg/dL (0.55-1.02); POTASSIUM 3.9 mmol/L (3.5-5.1)
[2025-01-25 16:26] VITALS: BP 125/92
== END 2025-01-25 16:26 | disposition home or self-care (01) ==
LOC: ED 12:33
PROVIDERS: Emergency Medicine
DX: R10.9 Unspecified abdominal pain (principal); K44.9 Diaphragmatic hernia without obstruction or gangrene; Z88.5 Allergy status to narcotic agent; Z88.8 Allergy status to other drugs, medicaments and biological substances; Z79.890 Hormone replacement therapy; Z79.899 Other long term (current) drug therapy
CPT/HCPCS: 36415; 74176; 80053; 81001; 83690; 85025; 99284-25

== ENCOUNTER 2025-02-18 21:02 | Emergency (ER) | payer MEDICARE, OTHER ==
[~2025-02-18] VITALS: Ht 167.6 cm; Wt 68.9 kg
--- OUTSIDE RECORDS SUMMARY | 2025-02-18 21:09 | XMS ---
PreManage Notification: CAROL WASHINGTON Security Equipment Service Associate Events No recent Security Events currently on file CRITERIA MET - [facility] - 2 Visits in 30 Days CARE PROVIDERS There are no care providers on record at this time. [facility] has no Care Guidelines for this patient. [place] [facility] MO.) [facility] NOTE: Visits indicate total known visits. [place] [place]12 [place] 02/18/2025 21:03 [facility] [place] TYPE: Emergency COMPLAINT: - ANKLE INJURY 01/25/2025 12:[address] [facility] [place] TYPE: Emergency COMPLAINT: - FLANK PAIN DIAGNOSES: - Allergy status to narcotic agent - Allergy status to other drugs, medicaments and biological substances - Diaphragmatic hernia without obstruction or gangrene - Hormone replacement therapy - Other long term care administrator (current) drug therapy - Unspecified abdominal pain INPATIENT VISIT TRACKING (12 MO.) No inpatient visits to display in this time frame [email or web address]
[2025-02-18] MEDS ORDERED: ACYCLOVIR800 MG PO (21:27)
[2025-02-18] MEDS ORDERED: ACETAMINOPHEN 500 MG TAB PO ONE (22:00)
[2025-02-18] MEDS ORDERED: PERCOCET 5-3251 EACH PO (22:04)
[2025-02-18] MEDS ORDERED: OXYCODONE/ACETAMINOPHEN 1 TAB HOME.PACK PO ONE (22:15)
[2025-02-18 22:32] VITALS: BP 138/83
== END 2025-02-18 22:32 | disposition home or self-care (01) ==
LOC: ED 21:02
DX: S82.64XA Nondisplaced fracture of lateral malleolus of right fibula, initial encounter for closed fracture (principal); Z91.041 Radiographic dye allergy status; Z88.5 Allergy status to narcotic agent; Z79.890 Hormone replacement therapy; Z79.899 Other long term (current) drug therapy; X50.1XXA Overexertion from prolonged static or awkward postures, initial encounter
CPT/HCPCS: 73610; 99283; A9270